=== PATIENT | female | born 1980 | race Hispanic/Latino ===

== ENCOUNTER 2018-02-01 08:47 | Emergency (ER) | payer MEDICARE ==
--- NOTE | 2018-02-01 10:21 | Emergency Department Report ---
ED Female [facility] [[email or web address]] - General Chief complaint: Abdominal Pain Stated complaint: ABD/CHEST PAIN Time Seen by Provider: 02/01/18 10:16 Source: patient Mode of arrival: Ambulatory Limitations: No Limitations - Related Data Home Medications Medication Instructions Recorded Confirmed Last Taken Albuterol Sulfate [Ventolin HFA] 2 puff IH Q4H PRN 11/11/13 11/11/13 Unknown Amitriptyline [Elavil] 50 mg PO QHS 11/11/13 11/11/13 Unknown Citalopram Hydrobromide [Celexa] 40 mg PO QDAY 11/11/13 11/11/13 Unknown Previous Rx's Medication Instructions Recorded Last Taken Type Albuterol Sulfate [Ventolin HFA] 2 puff IH Q4H PRN #1 hfa.aer.ad 11/11/13 Unknown Rx Azithromycin [Zithromax Z-KAYDEN] 250 mg PO DAILY #6 tablet 11/11/13 Unknown Rx Promethazine Dm [Phenergan DM 5 ml PO Q6H PRN #120 ml 11/11/13 Unknown Rx 6.25-15 mg/5 ml] predniSONE [Deltasone] 20 mg PO BID #10 tab 11/11/13 Unknown Rx HYDROcodone/APAP 5-325 [[place] 1 each PO Q6HR PRN #10 tablet 05/18/14 Unknown Rx 5/325] Ibuprofen [Motrin] 800 mg PO Q8HR PRN #20 tablet 07/31/16 Unknown Rx HYDROcodone/APAP 5-325 [[place]yler 1 each PO Q6HR PRN #10 tablet 11/11/16 Unknown Rx 5/325] Allergies Allergy/AdvReac Type Severity Reaction Status Date / Time Penicillins Allergy Hives Verified 11/11/13 09:53 ED Review of Systems ROS: Stated complaint: ABD/CHEST PAIN Other details as noted in HPI ED Past Medical Hx - Past Medical History Previous Medical History?: Yes Hx Psychiatric Treatment: Yes Additional medical history: hepatitis B. bronchitis - Surgical History Past Surgical History?: Yes Additional Surgical History: tubal ligation 2001 - Social History Smoking Status: Never Smoker Substance Use Type: None - Medications Home Medications: Home Medications Medication Instructions Recorded Confirmed Last Taken Type Albuterol Sulfate [Ventolin HFA] 2 puff IH Q4H PRN 11/11/13 11/11/13 Unknown History Albuterol Sulfate [Ventolin HFA] 2 puff IH Q4H PRN #1 hfa.aer.ad 11/11/13 Unknown Rx Amitriptyline [Elavil] 50 mg PO QHS 11/11/13 11/11/13 Unknown History Azithromycin [Zithromax Z-KAYDEN] 250 mg PO DAILY #6 tablet 11/11/13 Unknown Rx Citalopram Hydrobromide [Celexa] 40 mg PO QDAY 11/11/13 11/11/13 Unknown History Promethazine Dm [Phenergan DM 5 ml PO Q6H PRN #120 ml 11/11/13 Unknown Rx 6.25-15 mg/5 ml] predniSONE [Deltasone] 20 mg PO BID #10 tab 11/11/13 Unknown Rx HYDROcodone/APAP 5-325 [[place] 1 each PO Q6HR PRN #10 tablet 05/18/14 Unknown Rx 5/325] Ibuprofen [Motrin] 800 mg PO Q8HR PRN #20 tablet 07/31/16 Unknown Rx HYDROcodone/APAP 5-325 [Tyler 1 each PO Q6HR PRN #10 tablet 11/11/16 Unknown Rx 5/325] ED Physical Exam - General Limitations: No Limitations ED Course Vital Signs 02/01/18 09:04 Temperature 97.4 F L Pulse Rate 79 Respiratory 18 Rate Blood Pressure 112/76 O2 Sat by Pulse 100 Oximetry Critical care attestation.: If time is entered above; I have spent that time in minutes in the direct care of this critically ill patient, excluding procedure time. ED Disposition Condition: Stable Instructions: Abdominal Pain (ED) Referrals: PRIMARY CARE, [Primary Care Provider] - 3-5 Days
--- NOTE | 2018-02-01 10:22 | Emergency Department Report ---
ED Abdominal Pain HPI - General Chief Complaint: Abdominal Pain Stated Complaint: ABD/CHEST PAIN Time Seen by Provider: 02/01/18 10:16 Source: patient, family Mode of arrival: Ambulatory Limitations: No Limitations - History of Present Illness Initial Comments: Seen here reports pain to her mid upper abdomen that radiates to her chest. She describes pain as a burning pain in 6-10 comes and goes. She reports that she's been burping a lot and when asked if she has acidic feeling in her mouth that she burps she reports yes. Patient says that she's been seen when a heart and this isn't her heart is okay. She says she is having some nausea and she had diarrhea yesterday. She denies vomiting, urinary burning, vaginal bleeding and no discharge. Patient said that she's never been diagnosed with acid reflux. Pain is worse at night when lying down and after eating. The pain is radiating from her mid upper abdomen to her midsternal area. Patient has a history of mental health problem, bronchitis, hepatitis B and she's also had a tubal ligation. Denies any fever or chills. Denies any shortness of breath. She says she saw [facility] for the problem but they didn't tell her anything about it her needing to take any medication for acid reflux. The just over that she needs to see a lung specialist because she is exposed to secondhand smoke in for prolonged period of time with history of bronchitis. MD Complaint: abdominal pain (nausea with some diarrhea, burping) Onset/Timin -: week(s) Location: epigastric Radiation: chest (mid chest) Migration to: no migration Severity: moderate Severity scale (0 -10): 6 Quality: burning Consistency: intermittent Improves With: nothing Worsens With: eating, other Context: other (unknown) Associated Symptoms: nausea, diarrhea, other (burping with acidic taste in mouth ). denies: vomiting, fever, chills, constipation, dysuria, hematemesis, hematochezia, melena, hematuria, anorexia, syncope Treatments Prior to Arrival: other (none) - Related Data LMP Date: 01/02/18 Home Medications Medication Instructions Recorded Confirmed Last Taken Albuterol Sulfate [Ventolin HFA] 2 puff IH Q4H PRN 11/11/13 11/11/13 Unknown Amitriptyline [Elavil] 50 mg PO QHS 11/11/13 11/11/13 Unknown Citalopram Hydrobromide [Celexa] 40 mg PO QDAY 11/11/13 11/11/13 Unknown Previous Rx's Medication Instructions Recorded Last Taken Type Albuterol Sulfate [Ventolin HFA] 2 puff IH Q4H PRN #1 hfa.aer.ad 11/11/13 Unknown Rx Azithromycin [Zithromax Z-KAYDEN] 250 mg PO DAILY #6 tablet 11/11/13 Unknown Rx Promethazine Dm [Phenergan DM 5 ml PO Q6H PRN #120 ml 11/11/13 Unknown Rx 6.25-15 mg/5 ml] predniSONE [Deltasone] 20 mg PO BID #10 tab 11/11/13 Unknown Rx HYDROcodone/APAP 5-325 [[place] 1 each PO Q6HR PRN #10 tablet 05/18/14 Unknown Rx 5/325] Ibuprofen [Motrin] 800 mg PO Q8HR PRN #20 tablet 07/31/16 Unknown Rx HYDROcodone/APAP 5-325 [[place] 1 each PO Q6HR PRN #10 tablet 11/11/16 Unknown Rx 5/325] Omeprazole 20 mg PO BID 30 Days #60 tablet. 02/01/18 Unknown Rx Ondansetron [Zofran Odt] 4 mg PO Q8H PRN #12 tab.rapdis 02/01/18 Unknown Rx Allergies Allergy/AdvReac Type Severity Reaction Status Date / Time Penicillins Allergy Hives Verified 11/11/13 09:53 ED Review of Systems ROS: Stated complaint: ABD/CHEST PAIN Other details as noted in HPI Comment: All other systems reviewed and negative Constitutional: no symptoms reported. denies: chills, fever Eyes: denies: eye pain, eye discharge, vision change ENT: denies: ear pain, throat pain, congestion Respiratory: denies: cough, orthopnea, shortness of breath, SOB with exertion, SOB at rest, stridor, wheezing Cardiovascular: chest pain. denies: palpitations, dyspnea on exertion, edema, syncope, paroxysmal nocturnal dyspnea Endocrine: no symptoms reported Gastrointestinal: abdominal pain, nausea, diarrhea, other (burping and acidic taste in mouth). denies: vomiting, constipation, hematemesis, melena, hematochezia Genitourinary: denies: urgency, dysuria, frequency, hematuria, discharge, abnormal menses Musculoskeletal: denies: back pain, joint swelling, arthralgia Skin: denies: rash, lesions Neurological: denies: headache, weakness ED Past Medical Hx - Past Medical History Previous Medical History?: Yes Hx Psychiatric Treatment: Yes Additional medical history: hepatitis B. bronchitis - Surgical History Past Surgical History?: Yes Additional Surgical History: tubal ligation 2001 - Family History Family history: hypertension - Social History Smoking Status: Never Smoker (patient is exposed to secondhand smoke in her house.) Substance Use Type: None Other Social History: Patient single and lives with family - Medications Home Medications: Home Medications Medication Instructions Recorded Confirmed Last Taken Type Albuterol Sulfate [Ventolin HFA] 2 puff IH Q4H PRN 11/11/13 11/11/13 Unknown History Albuterol Sulfate [Ventolin HFA] 2 puff IH Q4H PRN #1 hfa.aer.ad 11/11/13 Unknown Rx Amitriptyline [Elavil] 50 mg PO QHS 11/11/13 11/11/13 Unknown History Azithromycin [Zithromax Z-KAYDEN] 250 mg PO DAILY #6 tablet 11/11/13 Unknown Rx Citalopram Hydrobromide [Celexa] 40 mg PO QDAY 11/11/13 11/11/13 Unknown History Promethazine Dm [Phenergan DM 5 ml PO Q6H PRN #120 ml 11/11/13 Unknown Rx 6.25-15 mg/5 ml] predniSONE [Deltasone] 20 mg PO BID #10 tab 11/11/13 Unknown Rx HYDROcodone/APAP 5-325 [[place] 1 each PO Q6HR PRN #10 tablet 05/18/14 Unknown Rx 5/325] Ibuprofen [Motrin] 800 mg PO Q8HR PRN #20 tablet 07/31/16 Unknown Rx HYDROcodone/APAP 5-325 [[place] 1 each PO Q6HR PRN #10 tablet 11/11/16 Unknown Rx 5/325] Omeprazole 20 mg PO BID 30 Days #60 tablet. 02/01/18 Unknown Rx Ondansetron [Zofran Odt] 4 mg PO Q8H PRN #12 tab.rapdis 02/01/18 Unknown Rx ED Physical Exam - General Limitations: No Limitations General appearance: alert, in no apparent distress - Head Head exam: Present: atraumatic, normocephalic, normal inspection - Eye Eye exam: Present: normal appearance, PERRL, EOMI Pupils: Present: normal accommodation - ENT ENT exam: Present: normal exam, normal orophraynx, mucous membranes moist, TM's normal bilaterally, normal external ear exam - Neck Neck exam: Present: normal inspection, full ROM, other (no C-spine tenderness). Absent: tenderness - Respiratory Respiratory exam: Present: normal lung sounds bilaterally. Absent: respiratory distress, wheezes, rales, rhonchi, stridor, chest wall tenderness, accessory muscle use, decreased breath sounds, prolonged expiratory - Cardiovascular Cardiovascular Exam: Present: regular rate, normal rhythm, normal heart sounds. Absent: systolic murmur, diastolic murmur - GI/Abdominal GI/Abdominal exam: Present: soft, normal bowel sounds. Absent: distended, tenderness, guarding, rebound, rigid, organomegaly, mass, bruit, pulsatile mass , hernia - Extremities Exam Extremities exam: Present: normal inspection, full ROM, normal capillary refill , other (no clubbing, cyanosis or edema. Positive pulses all extremities and no neurovascular compromise). Absent: tenderness, pedal edema, joint swelling, calf tenderness - Back Exam Back exam: Present: normal inspection, full ROM, other (ambulates without any difficulties). Absent: tenderness, CVA tenderness (R), CVA tenderness (L), muscle spasm, paraspinal tenderness, vertebral tenderness, rash noted - Neurological Exam Neurological exam: Present: alert, oriented X3, normal gait - Psychiatric Psychiatric exam: Present: normal affect, normal mood - Skin Skin exam: Present: warm, dry, intact, normal color. Absent: rash ED Course Vital Signs 02/01/18 09:04 Temperature 97.4 F L Pulse Rate 79 Respiratory 18 Rate Blood Pressure 112/76 O2 Sat by Pulse 100 Oximetry - Reevaluation(s) Reevaluation #1: 02/01/18 12:41 Patient received Maalox 15 mL by mouth and lidocaine 15 mL by mouth for dyspepsia. ED Medical Decision Making - Lab Data Result diagrams: 02/01/18 09:26 02/01/18 09:26 Lab Results 02/01/18 02/01/18 02/01/18 Range/Units 09:26 09:26 09:26 WBC 7.9 (4.5-11.0) K/mm3 RBC 4.55 (3.65-5.03) M/mm3 Hgb 13.0 (10.1-14.3) gm/dl Hct 38.9 (30.3-42.9) % MCV 85 (79-97) fl MCH 29 (28-32) pg MCHC 34 (30-34) % RDW 14.1 (13.2-15.2) % Plt Count 272 (140-440) K/mm3 Lymph % (Auto) 28.5 (13.4-35.0) % Hudson % (Auto) 7.8 H (0.0-7.3) % Eos % (Auto) 0.9 (0.0-4.3) % Baso % (Auto) 1.0 (0.0-1.8) % Lymph # 2.2 (1.2-5.4) K/mm3 Hudson # 0.6 (0.0-0.8) K/mm3 Eos # 0.1 (0.0-0.4) K/mm3 Baso # 0.1 (0.0-0.1) K/mm3 Seg Neutrophils % 61.8 (40.0-70.0) % Seg Neutrophils # 4.9 (1.8-7.7) K/mm3 Sodium 137 (137-145) mmol/L Potassium 4.2 (3.6-5.0) mmol/L Chloride 100.1 (98-107) mmol/L Carbon Dioxide 26 (22-30) mmol/L Anion Gap 15 mmol/L BUN 13 (7-17) mg/dL Creatinine 0.6 L (0.7-1.2) mg/dL Estimated GFR > 60 ml/min BUN/Creatinine Ratio 22 % Glucose 95 (65-100) mg/dL Calcium 9.1 (8.4-10.2) mg/dL Total Bilirubin 0.20 (0.1-1.2) mg/dL AST 16 (5-40) units/L ALT 18 (7-56) units/L Alkaline Phosphatase 90 (35-129) units/L Troponin T (0.00-0.029) ng/mL Total Protein 6.8 (6.3-8.2) g/dL Albumin 3.8 L (3.9-5) g/dL Albumin/Globulin Ratio 1.3 % HCG, Qual Negative (Negative) Urine Color (Yellow) Urine Turbidity (Clear) Urine pH (5.0-7.0) Ur Specific [place] (1.003-1.030) Urine Protein (Negative) mg/dL Urine Glucose (UA) (Negative) mg/dL Urine Ketones (Negative) mg/dL Urine Blood (Negative) Urine Nitrite (Negative) Urine Bilirubin (Negative) Urine Urobilinogen (<2.0) mg/dL Ur Leukocyte Esterase (Negative) Urine WBC (Auto) (0.0-6.0) /HPF Urine RBC (Auto) (0.0-6.0) /HPF U Epithel Cells (Auto) (0-13.0) /HPF Urine Bacteria (Auto) (Negative) /HPF Urine Mucus /HPF 02/01/18 02/01/18 Range/Units 09:26 10:16 WBC (4.5-11.0) K/mm3 RBC (3.65-5.03) M/mm3 Hgb (10.1-14.3) gm/dl Hct (30.3-42.9) % MCV (79-97) fl MCH (28-32) pg MCHC (30-34) % RDW (13.2-15.2) % Plt Count (140-440) K/mm3 Lymph % (Auto) (13.4-35.0) % [place] % (Auto) (0.0-7.3) % Eos % (Auto) (0.0-4.3) % Baso % (Auto) (0.0-1.8) % Lymph # (1.2-5.4) K/mm3 [place] # (0.0-0.8) K/mm3 Eos # (0.0-0.4) K/mm3 Baso # (0.0-0.1) K/mm3 Seg Neutrophils % (40.0-70.0) % Seg Neutrophils # (1.8-7.7) K/mm3 Sodium (137-145) mmol/L Potassium (3.6-5.0) mmol/L Chloride (98-107) mmol/L Carbon Dioxide (22-30) mmol/L Anion Gap mmol/L BUN (7-17) mg/dL Creatinine (0.7-1.2) mg/dL Estimated GFR ml/min BUN/Creatinine Ratio % Glucose (65-100) mg/dL Calcium (8.4-10.2) mg/dL Total Bilirubin (0.1-1.2) mg/dL AST (5-40) units/L ALT (7-56) units/L Alkaline Phosphatase (35-129) units/L Troponin T < 0.010 (0.00-0.029) ng/mL Total Protein (6.3-8.2) g/dL Albumin (3.9-5) g/dL Albumin/Globulin Ratio % HCG, Qual (Negative) Urine Color Yellow (Yellow) Urine Turbidity Clear (Clear) Urine pH 5.0 (5.0-7.0) Ur Specific [place] 1.017 (1.003-1.030) Urine Protein <15 mg/dl (Negative) mg/dL Urine Glucose (UA) Neg (Negative) mg/dL Urine Ketones Neg (Negative) mg/dL Urine Blood Sm (Negative) Urine Nitrite Neg (Negative) Urine Bilirubin Neg (Negative) Urine Urobilinogen < 2.0 (<2.0) mg/dL Ur Leukocyte Esterase Neg (Negative) Urine WBC (Auto) < 1.0 (0.0-6.0) /HPF Urine RBC (Auto) 1.0 (0.0-6.0) /HPF U Epithel Cells (Auto) 4.0 (0-13.0) /HPF Urine Bacteria (Auto) 1+ (Negative) /HPF Urine Mucus Few /HPF Urine culture sent and pending - EKG Data -: EKG Interpreted by Me (attending physician) EKG shows normal: sinus rhythm (72 beats per minutes) Rate: normal - EKG Data Interpretation: no acute changes, normal EKG - Radiology Data Radiology results: report reviewed Patient: ERIN ONOFRE MR#: [id number] : 1980 Acct:[id number] Age/Sex: 37 / F ADM Date: 02/01/18 Loc: ED Attending Dr: Ordering Physician: CHAD RAPP Date of Service: 02/01/18 Procedure(s): XR chest routine 2V Accession Number(s): [id number] cc: CHAD RAPP Fluoro Time In Minutes: CHEST 2 VIEWS INDICATION: Chest pain. COMPARISON: 11/11/2013. FINDINGS: PA and lateral chest radiographs demonstrate normal cardiomediastinal silhouette. Clear lungs. Intact bones. CONCLUSION: No acute disease in the chest. Thank you for the opportunity to participate in this patient's care. Transcribed By: RS Dictated By: HOLLIS HAMILTON MD Electronically Authenticated By: HOLLIS HAMILTON MD Signed Date/Time: 02/01/18 1230 DD/ 1229 TD/TT: 02/01/18 1230 - Medical Decision Making This is a 37-year-old female here reports pain to epigastric area and is radiating up into her chest. She is [facility] and she says she had a stress test and everything was okay. Today with nausea today and one episode of diarrhea yesterday. Patient with epigastric pain with increased burping and acid feeling in her mouth. CBC stable, troponin is negative, chemistry stable. Chest x-ray reveals no acute cardiopulmonary findings. Patient with nontender abdomen and her chest wall is nontender to palpate. urinalysis with 1+ bacteria and small amount of blood. Patient is asymptomatic therefore urine culture will be sent. I discussed results of labs and x-ray results the patient. I also discussed diagnosis and she receive Maalox 15 mL and lidocaine 15 mL in the emergency room which relieved her pain. Patient discharged home in stable condition with prescription for Prilosec, Zofran and to follow-up with [employer] hrms developer and her primary care physician. She does have a primary care physician so I will refer her to [facility] was restoration officer today. Her vital signs are stable and she is afebrile and patient was that she is feeling better. I Discussed this case with Dr. Sarahy Arroyo who agrees with treatment plan. Patient: ERIN ONOFRE MR#: [id number] : 1980 Acct:[id number] Age/Sex: 37 / F ADM Date: 02/01/18 Loc: ED Attending Dr: Ordering Physician: CHAD RAPP Date of Service: 02/01/18 Procedure(s): XR chest routine 2V Accession Number(s): [id number] cc: CHAD RAPP Fluoro Time In Minutes: CHEST 2 VIEWS INDICATION: Chest pain. COMPARISON: 11/11/2013. FINDINGS: PA and lateral chest radiographs demonstrate normal cardiomediastinal silhouette. Clear lungs. Intact bones. CONCLUSION: No acute disease in the chest. Thank you for the opportunity to participate in this patient's care. Transcribed By: RS Dictated By: HOLLIS HAMILTON MD Electronically Authenticated By: HOLLIS HAMILTON MD Signed Date/Time: 02/01/18 1230 DD/ 1229 TD/TT: 02/01/18 1230 - Differential Diagnosis ACS, atypical chest pain, gastroenteritis, acid reflux, UTI Critical care attestation.: If time is entered above; I have spent that time in minutes in the direct care of this critically ill patient, excluding procedure time. ED Disposition Clinical Impression: Dyspepsia, Nausea alone, Acute epigastric pain, Atypical chest pain Disposition: - TO HOME OR SELFCARE Is pt being admited?: No Does the pt Need Aspirin: No Condition: Stable Instructions: Abdominal Pain (ED), Chest Pain (ED), Gastroesophageal Reflux Disease (ED) Additional Instructions: Please follow up with [facility]ms developer with [facility]-. Call today to schedule an appointment for follow-up visit acid reflux She didn't follow up with your consulting application engineer. Follow-up the primary care physician call today to schedule an appointment to follow up on Sunday. Avoid eating spicy food, carbonated beverage and after eating, please set up for at least 30 minutes before laying down. Start Prilosec as prescribed Take Zofran for nausea as prescribed Prescriptions: Omeprazole 20 mg PO BID 30 Days #60 tablet. Ondansetron [Zofran Odt] 4 mg PO Q8H PRN #12 tab.rapdis PRN Reason: Nausea And Vomiting Referrals: PRIMARY CAREMD [Primary Care Provider] - 02/04/18 [facility] [Provider Group] - 3-5 Days [facility] [Provider Group] - 02/04/18 Forms: Work/School Release Form(ED)
[2018-02-01 10:36] LABS: Bacteria,Urine 1+ /HPF (Negative); Bilirubin,Urine NEG (Negative); Blood,Urine SM (Negative); Color,Urine Yellow (Yellow); Mucus,Urine FEW /HPF; Protein,Urine <15 mg/dL mg/dL (Negative); Urobilinogen,Urine < 2.0 mg/dL (<2.0); WBC,Urine < 1.0 /HPF (0.0-6.0)
[2018-02-01 10:46] LABS: Basophils # (Auto) 0.1 K/mm3 (0.0-0.1); Eosinophils # (Auto) 0.1 K/mm3 (0.0-0.4); Eosinophils % (Auto) 0.9 % (0.0-4.3); Hematocrit 38.9 % (30.3-42.9); Lymphocytes # (Auto) 2.2 K/mm3 (1.2-5.4); Lymphocytes % (Auto) 28.5 % (13.4-35.0); Mean Corpuscular HGB Conc 34 % (30-34); Mean Corpuscular Hemoglobin 29 pg (28-32); Mean Corpuscular Volume 85 fl (79-97); Monocytes # (Auto) 0.6 K/mm3 (0.0-0.8); Monocytes % (Auto) 7.8 % (0.0-7.3); Platelet Count 272 K/mm3 (140-440); Red Blood Count 4.55 M/mm3 (3.65-5.03); Red Cell Distribution Width 14.1 % (13.2-15.2)
[2018-02-01 11:03] LABS: Alanine Aminotransferase 18 units/L (7-56); Albumin 3.8 g/dL (3.9-5); BUN/Creatinine Ratio 22; Blood Urea Nitrogen 13 mg/dL (7-17); Calcium 9.1 mg/dL (8.4-10.2); Hemolysis Index 30
--- NOTE | 2018-02-01 12:36 | XRay Report ---
CHEST 2 VIEWS INDICATION: Chest pain. COMPARISON: 11/11/2013. FINDINGS: PA and lateral chest radiographs demonstrate normal cardiomediastinal silhouette. Clear lungs. Intact bones. CONCLUSION: No acute disease in the chest. Thank you for the opportunity to participate in this patient's care.
[2018-02-01] MEDS ORDERED: LIDOCAINE VISCOUS 2% PO ONE (12:40)
[2018-02-01] MEDS ORDERED: ALUM-MAG HYDROX-SIMETH 200-200-20MG/5ML PO ONE (12:40)
[2018-02-01 13:14] VITALS: BP 127/75
== END 2018-02-01 13:14 | disposition home or self-care (01) ==
LOC: ED 08:47
DX: R10.13 Epigastric pain (principal); R07.89 Other chest pain
CPT/HCPCS: 36415; 71046; 80053; 81001; 84484; 84703; 85025; 87086; 93005; 93010

== ENCOUNTER 2018-04-29 17:36 | Emergency (ER) | payer MEDICARE ==
[2018-04-29 18:11] VITALS: BP 135/87
[2018-04-29] MEDS ORDERED: MOTRIN PO ONE (20:01)
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
--- NOTE | 2018-04-29 21:52 | XRay Report ---
FINAL REPORT EXAM: XR SHOULDER 2+V RT HISTORY: right shoulder pain TECHNIQUE: 3 views of right shoulder. PRIORS: None. FINDINGS: No apparent fracture or dislocation. Joint spaces maintained. Soft tissues grossly unremarkable. IMPRESSION: 1. No acute osseous abnormality.
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
== END 2018-04-29 22:35 | disposition home or self-care (01) ==
LOC: ED 17:36
DX: S13.4XXA Sprain of ligaments of cervical spine, initial encounter (principal); S46.911A Strain of unspecified muscle, fascia and tendon at shoulder and upper arm level, right arm, initial encounter; S39.012A Strain of muscle, fascia and tendon of lower back, initial encounter; Z88.0 Allergy status to penicillin; V89.2XXA Person injured in unspecified motor-vehicle accident, traffic, initial encounter; Y93.89 Activity, other specified; Y92.89 Other specified places as the place of occurrence of the external cause; Y99.8 Other external cause status
CPT/HCPCS: 72040; 72100; 99283

== ENCOUNTER 2019-01-21 13:11 | Emergency (ER) | payer MEDICARE ==
--- NOTE | 2019-01-21 14:16 | Emergency Department Report ---
Chief Complaint: Extremity Injury, Lower Stated Complaint: BOTH LEG PAIN/SOAR Time Seen by Provider: 01/21/19 14:13 - HPI History of Present Illness: pt states that she has bilateral hankins pain that began yesterday morning she denies any fall, injury, or trauma hx of varicose veins has had increased swelling in the ankles and feet bilaterally MSE screening note: Focused history and physical exam performed. Due to findings the following was ordered: labs ED Disposition for MSE Condition: Stable
[2019-01-21 14:17] VITALS: BP 131/93
[2019-01-21 14:36] LABS: Hematocrit 41.4 % (30.3-42.9); Hemoglobin 14.2 gm/dl (10.1-14.3); Lymphocytes % (Auto) 36.3 % (13.4-35.0); Mean Corpuscular HGB Conc 34 % (30-34); Mean Corpuscular Volume 84 fl (79-97); Platelet Count 305 K/mm3 (140-440); Red Blood Count 4.94 M/mm3 (3.65-5.03); Red Cell Distribution Width 14.5 % (13.2-15.2)
[2019-01-21 14:37] LABS: Basophils # (Auto) 0.1 K/mm3 (0.0-0.1); Basophils % (Auto) 1.7 % (0.0-1.8); Eosinophils # (Auto) 0.1 K/mm3 (0.0-0.4); Eosinophils % (Auto) 0.9 % (0.0-4.3); Lymphocytes # (Auto) 2.7 K/mm3 (1.2-5.4); Monocytes # (Auto) 0.5 K/mm3 (0.0-0.8); Monocytes % (Auto) 6.8 % (0.0-7.3)
[2019-01-21 16:06] LABS: Alanine Aminotransferase 13 units/L (7-56); BUN/Creatinine Ratio 18; Blood Urea Nitrogen 14 mg/dL (7-17); Calcium 9.3 mg/dL (8.4-10.2); Hemolysis Index 12
[2019-01-21] MEDS ORDERED: HCTZ PO ONE (16:07)
--- NOTE | 2019-01-21 16:33 | Emergency Department Report ---
ED General Adult HPI - General Chief complaint: Extremity Injury, Lower Stated complaint: BOTH LEG PAIN/SOAR Time Seen by Provider: 01/21/19 14:13 Source: patient Mode of arrival: Ambulatory Limitations: No Limitations - History of Present Illness Initial comments: Patient is a 38-year-old female comes to the ER today complaining of leg swelling. Swelling is not sure on exam. She denies shortness of breath or chest pain. She states she's never had anything like this before. She is on atenolol for what she states as a rapid heart rate. She denies any medical history. She denies alcohol or cigarettes. She is on her menses currently. Patient is ambulatory. Vital signs are stable. She is non-tachycardic. Blood pressure is normal. Oxygen saturation is 100. Patient has no cardiac history of CHF. She has not traveled. She is on no hormones. -: Gradual, days(s) Location: lower extremity Improves with: none Worsens with: none Associated Symptoms: denies other symptoms Treatments Prior to Arrival: none - Related Data Home Medications Medication Instructions Recorded Confirmed Last Taken Albuterol Sulfate [Ventolin HFA] 2 puff IH Q4H PRN 11/11/13 11/11/13 Unknown Amitriptyline [Elavil] 50 mg PO QHS 11/11/13 11/11/13 Unknown Citalopram Hydrobromide [Celexa] 40 mg PO QDAY 11/11/13 11/11/13 Unknown Previous Rx's Medication Instructions Recorded Last Taken Type Albuterol Sulfate [Ventolin HFA] 2 puff IH Q4H PRN #1 hfa.aer.ad 11/11/13 Unknown Rx Azithromycin [Zithromax Z-KAYDEN] 250 mg PO DAILY #6 tablet 11/11/13 Unknown Rx Promethazine Dm (Nf) [Phenergan DM 5 ml PO Q6H PRN #120 ml 11/11/13 Unknown Rx 6.25-15 mg/5 ml] predniSONE [Deltasone] 20 mg PO BID #10 tab 11/11/13 Unknown Rx HYDROcodone/APAP 5-325 [[place] 1 each PO Q6HR PRN #10 tablet 05/18/14 Unknown Rx 5/325] Ibuprofen [Motrin] 800 mg PO Q8HR PRN #20 tablet 11/07/16 Unknown Rx HYDROcodone/APAP 5-325 [[place] 1 each PO Q6HR PRN #10 tablet 11/11/16 Unknown Rx 5/325] Omeprazole 20 mg PO BID 30 Days #60 tablet. 02/01/18 Unknown Rx Ondansetron [Zofran Odt] 4 mg PO Q8H PRN #12 tab.rapdis 02/01/18 Unknown Rx Cyclobenzaprine [Flexeril] 10 mg PO QHS PRN #10 tablet 04/29/18 Unknown Rx Ibuprofen [Motrin] 600 mg PO Q8H PRN #30 tablet 04/29/18 Unknown Rx Allergies Allergy/AdvReac Type Severity Reaction Status Date / Time Penicillins Allergy Hives Verified 11/11/13 09:53 ED Review of Systems ROS: Stated complaint: BOTH LEG PAIN/SOAR Other details as noted in HPI Comment: All other systems reviewed and negative ED Past Medical Hx - Past Medical History Hx Psychiatric Treatment: Yes Additional medical history: hepatitis B. bronchitis - Surgical History Past Surgical History?: Yes Additional Surgical History: tubal ligation 2001 - Family History Family history: no significant - Social History Smoking Status: Never Smoker Substance Use Type: None - Medications Home Medications: Home Medications Medication Instructions Recorded Confirmed Last Taken Type Albuterol Sulfate [Ventolin HFA] 2 puff IH Q4H PRN 11/11/13 11/11/13 Unknown History Albuterol Sulfate [Ventolin HFA] 2 puff IH Q4H PRN #1 hfa.aer.ad 11/11/13 Unknown Rx Amitriptyline [Elavil] 50 mg PO QHS 11/11/13 11/11/13 Unknown History Azithromycin [Zithromax Z-KAYDEN] 250 mg PO DAILY #6 tablet 11/11/13 Unknown Rx Citalopram Hydrobromide [Celexa] 40 mg PO QDAY 11/11/13 11/11/13 Unknown History Promethazine Dm (Nf) [Phenergan DM 5 ml PO Q6H PRN #120 ml 11/11/13 Unknown Rx 6.25-15 mg/5 ml] predniSONE [Deltasone] 20 mg PO BID #10 tab 11/11/13 Unknown Rx HYDROcodone/APAP 5-325 [[place] 1 each PO Q6HR PRN #10 tablet 05/18/14 Unknown Rx 5/325] Ibuprofen [Motrin] 800 mg PO Q8HR PRN #20 tablet 07/31/16 Unknown Rx HYDROcodone/APAP 5-325 [[place] 1 each PO Q6HR PRN #10 tablet 11/11/16 Unknown Rx 5/325] Omeprazole 20 mg PO BID 30 Days #60 tablet. 02/01/18 Unknown Rx Ondansetron [Zofran Odt] 4 mg PO Q8H PRN #12 tab.rapdis 02/01/18 Unknown Rx Cyclobenzaprine [Flexeril] 10 mg PO QHS PRN #10 tablet 04/29/18 Unknown Rx Ibuprofen [Motrin] 600 mg PO Q8H PRN #30 tablet 04/29/18 Unknown Rx ED Physical Exam - General Limitations: No Limitations General appearance: alert, in no apparent distress - Head Head exam: Present: normocephalic - Eye Eye exam: Present: normal appearance, PERRL, EOMI - ENT ENT exam: Present: mucous membranes moist - Neck Neck exam: Present: normal inspection, full ROM - Respiratory Respiratory exam: Present: normal lung sounds bilaterally - Cardiovascular Cardiovascular Exam: Present: regular rate - GI/Abdominal GI/Abdominal exam: Present: soft - Rectal Rectal exam: Present: deferred - Extremities Exam Extremities exam: Present: normal inspection, full ROM, normal capillary refill. Absent: pedal edema - Back Exam Back exam: Present: normal inspection, full ROM - Neurological Exam Neurological exam: Present: alert, oriented X3, CN II-XII intact - Psychiatric Psychiatric exam: Present: normal affect, normal mood - Skin Skin exam: Present: warm, dry, intact ED Course Vital Signs 01/21/19 14:13 Temperature 98.7 F Pulse Rate 88 Respiratory 18 Rate Blood Pressure 131/93 [Left] O2 Sat by Pulse 96 Oximetry ED Medical Decision Making - Lab Data Result diagrams: 01/21/19 14:22 01/21/19 14:22 - Medical Decision Making Vital Signs 01/21/19 14:13 Temperature 98.7 F Pulse Rate 88 Respiratory 18 Rate Blood Pressure 131/93 [Left] O2 Sat by Pulse 96 Oximetry Labs 01/21/19 01/21/19 14:22 14:22 WBC 7.5 RBC 4.94 Hgb 14.2 Hct 41.4 MCV 84 MCH 29 MCHC 34 RDW 14.5 Plt Count 305 Lymph % (Auto) 36.3 H Runnels % (Auto) 6.8 Eos % (Auto) 0.9 Baso % (Auto) 1.7 Lymph # 2.7 Runnels # 0.5 Eos # 0.1 Baso # 0.1 Seg Neutrophils % 54.3 Seg Neutrophils # 4.1 Sodium 136 L Potassium 3.8 Chloride 99.3 Carbon Dioxide 23 Anion Gap 18 BUN 14 Creatinine 0.8 Estimated GFR > 60 BUN/Creatinine Ratio 18 Glucose 116 H Calcium 9.3 Total Bilirubin 0.30 AST 14 ALT 13 Alkaline Phosphatase 82 Total Protein 7.0 Albumin 4.0 Albumin/Globulin Ratio 1.3 PEDAL EDEMA IS NOT APPRECIATED ON EXAM LOW SUSPICION FOR DVT NO DAVID NO TACHY NO HISTORY NO CP NO SOB NO HORMONE THERAPY ON MENSES CURRENTLY LOW SUSPICION FOR CHF NO SOB NO CP NON SMOKER NO FAM HX NO PREVIOUS HX PT EDUCATED ON EDEMA DISCUSSED HYDRATION AND DIET SHE WAS GIVEN HCTZ X 1 HERE FOR HER COMPLAINTS DC HOME WITH REFERRAL AND PCP FOLLOW UP ON DC VSS NO COMPLAINTS, AMBULATORY AND NONTOXIC Critical care attestation.: If time is entered above; I have spent that time in minutes in the direct care of this critically ill patient, excluding procedure time. ED Disposition Clinical Impression: Dependent edema Disposition: DC-01 TO HOME OR SELFCARE Is pt being admited?: No Does the pt Need Aspirin: No Condition: Stable Instructions: Leg Edema (ED) Additional Instructions: med as ordered today diet as tolerated activity as tolerated hydrate well with water REST ELEVATE LEGS WHEN ABLE LOW SALT DIET NO FRIED, CANNED OR PROCESSED FOODS FOLLOW UP PCP IF PERSISTS REFERRAL BELOW Referrals: ZAHRAA LAWS MD [Primary Care Provider] - 3-5 Days Time of Disposition: 16:31
== END 2019-01-21 16:50 | disposition home or self-care (01) ==
LOC: ED 13:11
DX: R60.9 Edema, unspecified (principal); Z98.51 Tubal ligation status; Z88.0 Allergy status to penicillin
CPT/HCPCS: 36415; 80053; 85025; 99283

== ENCOUNTER 2019-07-09 19:44 | Emergency (ER) | payer MEDICARE ==
--- NOTE | 2019-07-09 20:00 | Emergency Department Report ---
Blank Doc - Documentation Documentation: 39-year-old female that presents with URI symptoms. This initial assessment/diagnostic orders/clinical plan/treatment(s) is/are subject to change based on patient's health status, clinical progression and re- assessment by fellow clinical providers in the ED. Further treatment and workup at subsequent clinical providers discretion. Patient/guardians urged not to elope from the ED as their condition may be serious if not clinically assessed and managed. Initial orders include: 1- Patient sent to [facility] for further evaluation and treatment 2- CXR
--- NOTE | 2019-07-09 20:53 | XRay Report ---
CHEST PA AND LATERAL VIEWS INDICATION: MAIN: cough COUGH ANS SORE THROAT X 2 DAYS. COMPARISON: 02/01/2018. FINDINGS: Support devices: None. Heart: Within normal limits. Lungs/Pleura: No acute pulmonary or pleural findings. IMPRESSION: 1. No significant abnormality. Signer Name: Arjun Hodges MD Signed: 07/09/2019 8:48 PM Workstation Name: [id number]
--- NOTE | 2019-07-09 21:42 | Emergency Department Report ---
- General Chief Complaint: Upper Respiratory Infection Stated Complaint: COLD SX Time Seen by Provider: 07/09/19 19:59 Source: patient Mode of arrival: Ambulatory Limitations: No Limitations - History of Present Illness Initial Comments: Patient is a 39-year-old female presents emergency room with complaints of URI symptoms for 2 days. As associated dry cough, rhinorrhea, sneezing, watery eyes, chest discomfort after frequent coughing. She denies any fever, shortness of breath, leg swelling, any other symptoms. She has not taken anything at all for her symptoms. She denies any past medical history or allergies medications. - Related Data Home Medications Medication Instructions Recorded Confirmed Last Taken Albuterol Sulfate [Ventolin HFA] 2 puff IH Q4H PRN 11/11/13 11/11/13 Unknown Amitriptyline [Elavil] 50 mg PO QHS 11/11/13 11/11/13 Unknown Citalopram Hydrobromide [Celexa] 40 mg PO QDAY 11/11/13 11/11/13 Unknown Previous Rx's Medication Instructions Recorded Last Taken Type Albuterol Sulfate [Ventolin HFA] 2 puff IH Q4H PRN #1 hfa.aer.ad 11/11/13 Unknown Rx Azithromycin [Zithromax Z-KAYDEN] 250 mg PO DAILY #6 tablet 11/11/13 Unknown Rx Promethazine Dm (Nf) [Phenergan DM 5 ml PO Q6H PRN #120 ml 11/11/13 Unknown Rx 6.25-15 mg/5 ml] predniSONE [Deltasone] 20 mg PO BID #10 tab 11/11/13 Unknown Rx HYDROcodone/APAP 5-325 [[place] 1 each PO Q6HR PRN #10 tablet 05/18/14 Unknown Rx 5/325] Ibuprofen [Motrin] 800 mg PO Q8HR PRN #20 tablet 07/31/16 Unknown Rx HYDROcodone/APAP 5-325 [[place] 1 each PO Q6HR PRN #10 tablet 11/11/16 Unknown Rx 5/325] Omeprazole 20 mg PO BID 30 Days #60 tablet. 02/01/18 Unknown Rx Ondansetron [Zofran Odt] 4 mg PO Q8H PRN #12 tab.rapdis 02/01/18 Unknown Rx Cyclobenzaprine [Flexeril] 10 mg PO QHS PRN #10 tablet 04/29/18 Unknown Rx Ibuprofen [Motrin] 600 mg PO Q8H PRN #30 tablet 04/29/18 Unknown Rx Benzonatate [Tessalon Perles] 100 mg PO Q8HR PRN #14 capsule 07/09/19 Unknown Rx Cetirizine HCl [Zyrtec 10mg tab] 10 mg PO DAILY #14 tablet 07/09/19 Unknown Rx Fluticasone [Flonase] 1 spray NS QDAY #1 bottle 07/09/19 Unknown Rx Oseltamivir [Tamiflu] 75 mg PO BID 5 Days #10 cap 07/09/19 Unknown Rx Allergies Allergy/AdvReac Type Severity Reaction Status Date / Time Penicillins Allergy Hives Verified 11/11/13 09:53 ED Review of Systems ROS: Stated complaint: COLD SX Other details as noted in HPI Comment: All other systems reviewed and negative ED Past Medical Hx - Past Medical History Previous Medical History?: Yes Hx Psychiatric Treatment: Yes Additional medical history: hepatitis B. bronchitis - Surgical History Past Surgical History?: Yes Additional Surgical History: tubal ligation 2001 - Social History Smoking Status: Never Smoker Substance Use Type: None - Medications Home Medications: Home Medications Medication Instructions Recorded Confirmed Last Taken Type Albuterol Sulfate [Ventolin HFA] 2 puff IH Q4H PRN 11/11/13 11/11/13 Unknown History Albuterol Sulfate [Ventolin HFA] 2 puff IH Q4H PRN #1 hfa.aer.ad 11/11/13 Unknown Rx Amitriptyline [Elavil] 50 mg PO QHS 11/11/13 11/11/13 Unknown History Azithromycin [Zithromax Z-KAYDEN] 250 mg PO DAILY #6 tablet 11/11/13 Unknown Rx Citalopram Hydrobromide [Celexa] 40 mg PO QDAY 11/11/13 11/11/13 Unknown History Promethazine Dm (Nf) [Phenergan DM 5 ml PO Q6H PRN #120 ml 11/11/13 Unknown Rx 6.25-15 mg/5 ml] predniSONE [Deltasone] 20 mg PO BID #10 tab 11/11/13 Unknown Rx HYDROcodone/APAP 5-325 [[place] 1 each PO Q6HR PRN #10 tablet 08/25/14 Unknown Rx 5/325] Ibuprofen [Motrin] 800 mg PO Q8HR PRN #20 tablet 07/31/16 Unknown Rx HYDROcodone/APAP 5-325 [[place] 1 each PO Q6HR PRN #10 tablet 11/11/16 Unknown Rx 5/325] Omeprazole 20 mg PO BID 30 Days #60 tablet. 02/01/18 Unknown Rx Ondansetron [Zofran Odt] 4 mg PO Q8H PRN #12 tab.rapdis 02/01/18 Unknown Rx Cyclobenzaprine [Flexeril] 10 mg PO QHS PRN #10 tablet 04/29/18 Unknown Rx Ibuprofen [Motrin] 600 mg PO Q8H PRN #30 tablet 04/29/18 Unknown Rx Benzonatate [Tessalon Perles] 100 mg PO Q8HR PRN #14 capsule 07/09/19 Unknown Rx Cetirizine HCl [Zyrtec 10mg tab] 10 mg PO DAILY #14 tablet 07/09/19 Unknown Rx Fluticasone [Flonase] 1 spray NS QDAY #1 bottle 07/09/19 Unknown Rx Oseltamivir [Tamiflu] 75 mg PO BID 5 Days #10 cap 07/09/19 Unknown Rx ED Physical Exam - General Limitations: No Limitations General appearance: alert, in no apparent distress - Head Head exam: Present: atraumatic, normocephalic - Eye Eye exam: Present: normal appearance, PERRL, EOMI - ENT ENT exam: Present: normal orophraynx, mucous membranes moist, TM's normal bilaterally, normal external ear exam - Respiratory Respiratory exam: Present: normal lung sounds bilaterally. Absent: respiratory distress, wheezes, rales, rhonchi, stridor, chest wall tenderness, accessory muscle use, decreased breath sounds, prolonged expiratory - Cardiovascular Cardiovascular Exam: Present: regular rate, tachycardia, normal heart sounds. Absent: systolic murmur, diastolic murmur, rubs, gallop - Neurological Exam Neurological exam: Present: alert, oriented X3 - Psychiatric Psychiatric exam: Present: normal affect, normal mood - Skin Skin exam: Present: warm, dry, intact ED Course Vital Signs 07/09/19 07/09/19 19:45 19:59 Temperature 100.4 F H 99.2 F Pulse Rate 125 H 108 H Respiratory 18 16 Rate Blood Pressure 140/80 Blood Pressure 126/107 [Left] O2 Sat by Pulse 100 100 Oximetry ED Medical Decision Making - Radiology Data Radiology results: report reviewed CHEST PA AND LATERAL VIEWS INDICATION: MAIN: cough COUGH ANS SORE THROAT X 2 DAYS. COMPARISON: 02/01/2018. FINDINGS: Support devices: None. Heart: Within normal limits. Lungs/Pleura: No acute pulmonary or pleural findings. IMPRESSION: 1. No significant abnormality. Signer Name: Arjun Hodges MD Signed: 07/09/2019 8:48 PM Workstation Name: [id number] Transcribed By: CORIN Dictated By: Arjun Hodges MD Electronically Authenticated By: Arjun Hodges MD Signed Date/Time: 07/09/192047 - Medical Decision Making Patient is a 39-year-old female presents emergency room with complaints of URI symptoms for 2 days. As associated dry cough, rhinorrhea, sneezing, watery eyes, chest discomfort after frequent coughing. She denies any fever, shortness of breath, leg swelling, any other symptoms. She has not taken anything at all for her symptoms. She denies any past medical history or allergies medications. vitals with elevated HR and mild temperature, pt given ibuprofen. CXR: 1. No significant abnormality. lungs are clear bilaterally without w/r/r. Wells criteria score is very low risk for PE making PE very unlikely. pt has clinical signs/symptoms of flu and has had symptoms begin within 48 hours, will treat with tamiflu. pt given prescription for tamiflu, flonase, zyrtec, tessalon perles. advised pt to please take medication as prescribed. Please increase your water intake over the next several days. please follow-up with a primary care doctor in the next 2-3 days for reexamination. Return to the emergency room for any new or worsening symptoms. - Differential Diagnosis PNA, URI, viral syndrome, influenza, bronchitis, allergies Critical care attestation.: If time is entered above; I have spent that time in minutes in the direct care of this critically ill patient, excluding procedure time. ED Disposition Clinical Impression: Influenza Disposition: DC-01 TO HOME OR SELFCARE Is pt being admited?: No Does the pt Need Aspirin: No Condition: Stable Instructions: Influenza (ED) Additional Instructions: Please take medication as prescribed. Please increase your water intake over the next several days. please follow-up with a primary care doctor in the next 2-3 days for reexamination. Return to the emergency room for any new or worsening symptoms. Prescriptions: Fluticasone [Flonase] 1 spray NS QDAY #1 bottle Oseltamivir [Tamiflu] 75 mg PO BID 5 Days #10 cap Benzonatate [Tessalon Perles] 100 mg PO Q8HR PRN #14 capsule PRN Reason: cough Cetirizine HCl [Zyrtec 10mg tab] 10 mg PO DAILY #14 tablet Referrals: ZAHRAA ALWS MD [Primary Care Provider] - 2-3 Days Forms: Work/School Release Form(ED) Time of Disposition: 22:22 Print Language: KAZAKH
[2019-07-09] MEDS ORDERED: IBUPROFEN PO ONE (22:21)
[2019-07-09 22:41] VITALS: BP 126/107
== END 2019-07-09 22:47 | disposition home or self-care (01) ==
LOC: ED 19:44
DX: J11.1 Influenza due to unidentified influenza virus with other respiratory manifestations (principal); Z98.51 Tubal ligation status; Z98.890 Other specified postprocedural states; Z79.899 Other long term (current) drug therapy; Z88.0 Allergy status to penicillin
CPT/HCPCS: 71046

== ENCOUNTER 2019-09-12 20:25 | Emergency (ER) | payer MEDICARE ==
--- NOTE | 2019-09-13 02:23 | Emergency Department Report ---
- General Chief Complaint: Upper Respiratory Infection Stated Complaint: JASMIN/COLD CHILLS Time Seen by Provider: 09/13/19 02:05 Source: patient Mode of arrival: Ambulatory Limitations: No Limitations - History of Present Illness Initial Comments: Patient is a 39-year-old female that presents emergency room with complaints of the upper respiratory infections and fever times one week. Patient denied having a flu shot. MD Complaint: cough, rhinorrhea, nasal congestion -: Sudden Severity: severe Consistency: constant Improves With: NSAID, OTC cold medicine, rest Worsens With: activity Associated Symptoms: chills, rhinorrhea, nasal congestion, cough, shortness of breath. denies: fever, myalgias, diaphoresis, headache, stiff neck, chest pain, abdominal pain, nausea, vomiting, diarrhea, dysuria, rash, confusion, right sweats, weight loss, epistaxis, hoarseness, ear pain Treatments Prior to Arrival: Acetaminophen, Ibuprofen, "cold medicine" - Related Data Home Medications Medication Instructions Recorded Confirmed Last Taken Albuterol Sulfate [Ventolin HFA] 2 puff IH Q4H PRN 11/11/13 11/11/13 Unknown Amitriptyline [Elavil] 50 mg PO QHS 11/11/13 11/11/13 Unknown Citalopram Hydrobromide [Celexa] 40 mg PO QDAY 11/11/13 11/11/13 Unknown Previous Rx's Medication Instructions Recorded Last Taken Type Albuterol Sulfate [Ventolin HFA] 2 puff IH Q4H PRN #1 hfa.aer.ad 11/11/13 Unknown Rx Azithromycin [Zithromax Z-KAYDEN] 250 mg PO DAILY #6 tablet 11/11/13 Unknown Rx Promethazine Dm (Nf) [Phenergan DM 5 ml PO Q6H PRN #120 ml 11/11/13 Unknown Rx 6.25-15 mg/5 ml] predniSONE [Deltasone] 20 mg PO BID #10 tab 11/11/13 Unknown Rx HYDROcodone/APAP 5-325 [[place] 1 each PO Q6HR PRN #10 tablet 05/18/14 Unknown Rx 5/325] Ibuprofen [Motrin] 800 mg PO Q8HR PRN #20 tablet 07/31/16 Unknown Rx HYDROcodone/APAP 5-325 [[place] 1 each PO Q6HR PRN #10 tablet 11/11/16 Unknown Rx 5/325] Omeprazole 20 mg PO BID 30 Days #60 tablet.dr 02/01/18 Unknown Rx Ondansetron [Zofran Odt] 4 mg PO Q8H PRN #12 tab.rapdis 02/01/18 Unknown Rx Cyclobenzaprine [Flexeril] 10 mg PO QHS PRN #10 tablet 04/29/18 Unknown Rx Ibuprofen [Motrin] 600 mg PO Q8H PRN #30 tablet 04/29/18 Unknown Rx Benzonatate [Tessalon Perles] 100 mg PO Q8HR PRN #14 capsule 07/09/19 Unknown Rx Cetirizine HCl [Zyrtec 10mg tab] 10 mg PO DAILY #14 tablet 07/09/19 Unknown Rx Fluticasone [Flonase] 1 spray NS QDAY #1 bottle 07/09/19 Unknown Rx Oseltamivir [Tamiflu] 75 mg PO BID 5 Days #10 cap 07/09/19 Unknown Rx Doxycycline Hyclate [Doxycycline 100 mg PO Q12HR 10 Days #20 tab 09/13/19 Unknown Rx Hyclate TAB] methylPREDNISolone [Medrol 4MG 4 mg PO DAILY 6 Days #1 tab.ds.pk 09/13/19 Unknown Rx DOSEPAK (21 tabs)] Allergies Allergy/AdvReac Type Severity Reaction Status Date / Time Penicillins Allergy Hives Verified 11/11/13 09:53 ED Review of Systems ROS: Stated complaint: JASMIN/COLD CHILLS Other details as noted in HPI Constitutional: chills. denies: fever Eyes: denies: eye pain, eye discharge, vision change ENT: congestion. denies: ear pain, throat pain Respiratory: cough, shortness of breath, wheezing Cardiovascular: denies: chest pain, palpitations Endocrine: no symptoms reported Gastrointestinal: denies: abdominal pain, nausea, diarrhea Genitourinary: denies: urgency, dysuria, discharge Musculoskeletal: denies: back pain, joint swelling, arthralgia Skin: denies: rash, lesions Neurological: denies: headache, weakness, paresthesias Psychiatric: denies: anxiety, depression Hematological/Lymphatic: denies: easy bleeding, easy bruising ED Past Medical Hx - Past Medical History Previous Medical History?: Yes Hx Psychiatric Treatment: Yes (PTSD) Additional medical history: hepatitis B. bronchitis - Surgical History Past Surgical History?: Yes Additional Surgical History: tubal ligation 2001 - Family History Family history: no significant - Social History Smoking Status: Never Smoker Substance Use Type: None - Medications Home Medications: Home Medications Medication Instructions Recorded Confirmed Last Taken Type Albuterol Sulfate [Ventolin HFA] 2 puff IH Q4H PRN 11/11/13 11/11/13 Unknown History Albuterol Sulfate [Ventolin HFA] 2 puff IH Q4H PRN #1 hfa.aer.ad 11/11/13 Unknown Rx Amitriptyline [Elavil] 50 mg PO QHS 11/11/13 11/11/13 Unknown History Azithromycin [Zithromax Z-KAYDEN] 250 mg PO DAILY #6 tablet 11/11/13 Unknown Rx Citalopram Hydrobromide [Celexa] 40 mg PO QDAY 11/11/13 11/11/13 Unknown History Promethazine Dm (Nf) [Phenergan DM 5 ml PO Q6H PRN #120 ml 11/11/13 Unknown Rx 6.25-15 mg/5 ml] predniSONE [Deltasone] 20 mg PO BID #10 tab 11/11/13 Unknown Rx HYDROcodone/APAP 5-325 [[place] 1 each PO Q6HR PRN #10 tablet 05/18/14 Unknown Rx 5/325] Ibuprofen [Motrin] 800 mg PO Q8HR PRN #20 tablet 07/31/16 Unknown Rx HYDROcodone/APAP 5-325 [[place] 1 each PO Q6HR PRN #10 tablet 11/11/16 Unknown Rx 5/325] Omeprazole 20 mg PO BID 30 Days #60 tablet. 02/01/18 Unknown Rx Ondansetron [Zofran Odt] 4 mg PO Q8H PRN #12 tab.rapdis 02/01/18 Unknown Rx Cyclobenzaprine [Flexeril] 10 mg PO QHS PRN #10 tablet 04/29/18 Unknown Rx Ibuprofen [Motrin] 600 mg PO Q8H PRN #30 tablet 04/29/18 Unknown Rx Benzonatate [Tessalon Perles] 100 mg PO Q8HR PRN #14 capsule 07/09/19 Unknown Rx Cetirizine HCl [Zyrtec 10mg tab] 10 mg PO DAILY #14 tablet 07/09/19 Unknown Rx Fluticasone [Flonase] 1 spray NS QDAY #1 bottle 07/09/19 Unknown Rx Oseltamivir [Tamiflu] 75 mg PO BID 5 Days #10 cap 07/09/19 Unknown Rx Doxycycline Hyclate [Doxycycline 100 mg PO Q12HR 10 Days #20 tab 09/13/19 Unknown Rx Hyclate TAB] methylPREDNISolone [Medrol 4MG 4 mg PO DAILY 6 Days #1 tab.ds.pk 09/13/19 Unknown Rx DOSEPAK (21 tabs)] ED Physical Exam - General Limitations: No Limitations General appearance: alert, in no apparent distress - Head Head exam: Present: atraumatic, normocephalic - Eye Eye exam: Present: normal appearance - ENT ENT exam: Present: mucous membranes moist, TM's normal bilaterally, normal external ear exam - Expanded ENT Exam Expanded Throat exam: Positive: tonsillar erythema. Negative: tonsillomegaly, tonsillar exudate - Neck Neck exam: Present: normal inspection - Respiratory Respiratory exam: Present: normal lung sounds bilaterally. Absent: respiratory distress, wheezes, rales, rhonchi - Cardiovascular Cardiovascular Exam: Present: regular rate, normal rhythm. Absent: systolic murmur, diastolic murmur, rubs, gallop - GI/Abdominal GI/Abdominal exam: Present: soft, normal bowel sounds. Absent: distended, tenderness, guarding - Extremities Exam Extremities exam: Present: normal inspection - Back Exam Back exam: Present: normal inspection - Neurological Exam Neurological exam: Present: alert, oriented X3 - Psychiatric Psychiatric exam: Present: normal affect, normal mood - Skin Skin exam: Present: warm, dry, intact, normal color. Absent: rash ED Course Vital Signs 09/12/19 09/13/19 20:53 02:43 Temperature 99.0 F 98.2 F Pulse Rate 95 H 82 Respiratory 18 18 Rate Blood Pressure 115/84 106/85 O2 Sat by Pulse 97 98 Oximetry - Reevaluation(s) Reevaluation #1: 09/13/19 02:20 I discussed clinical findings patient. Patient findings are consistent with a URI. Patient has had the symptoms for approximately a week. Patient will require antibiotic therapy as well as Medrol Dosepak. I discussed discharge instructions with patient. Patient voiced understanding of discharge instructions. Vision agrees with plan of care. Patient will be discharged home. Patient stable for discharge. ED Medical Decision Making - Medical Decision Making Patient is a 39-year-old female up since emergency room with complaints of respiratory symptoms along with difficulty in breathing and chills. Patient's findings consistent with a prolonged URI. Patient will be given doxycycline and Medrol Dosepak. Patient stated discharge. Patient does not require further emergent investigation. - Differential Diagnosis bronchitis, URI, cough, chills, Critical care attestation.: If time is entered above; I have spent that time in minutes in the direct care of this critically ill patient, excluding procedure time. ED Disposition Clinical Impression: Bronchitis URI (upper respiratory infection) Qualifiers: URI type: unspecified URI Qualified Code(s): J06.9 - Acute upper respiratory infection, unspecified Disposition: TO HOME OR SELFCARE Is pt being admited?: No Does the pt Need Aspirin: No Condition: Stable Instructions: Upper Respiratory Infection (ED), Acute Bronchitis (ED) Additional Instructions: Patient to follow up with primary care in 2-3 days. Patient take meds as directed. Patient states Tylenol or ibuprofen when necessary for pain and fever. Patient to rest. Patient to increase water. Patient to return to ER if condition worsens, changes or new symptoms arise. Prescriptions: Doxycycline Hyclate [Doxycycline Hyclate TAB] 100 mg PO Q12HR 10 Days #20 tab methylPREDNISolone [Medrol 4MG DOSEPAK (21 tabs)] 4 mg PO DAILY 6 Days #1 tab.ds.pk Referrals: EVERETT RODRIGES MD [Primary Care Provider] - 2-3 Days Forms: Work/School Release Form(ED) Time of Disposition: 02:24
[2019-09-13 02:46] VITALS: BP 106/85
== END 2019-09-13 02:46 | disposition home or self-care (01) ==
LOC: ED 20:25
DX: J40 Bronchitis, not specified as acute or chronic (principal); F43.10 Post-traumatic stress disorder, unspecified
CPT/HCPCS: 99282

== ENCOUNTER 2020-02-21 22:40 | Emergency (ER) | payer MEDICARE ==
[2020-02-21 23:15] LABS: Bilirubin,Urine NEG (Negative); Blood,Urine NEG (Negative); Color,Urine Yellow (Yellow); Mucus,Urine FEW /HPF; Protein,Urine <15 mg/dL mg/dL (Negative); Urobilinogen,Urine < 2.0 mg/dL (<2.0)
[2020-02-21 23:16] LABS: HCG Qualitative,Urine Negative (Negative)
[2020-02-21] MEDS ORDERED: MORPHINE 4 MG/1 ML INJ IV ONE (23:27)
[2020-02-21] MEDS ORDERED: SODIUM CHLORIDE 0.9% 1000 ML 1,000 ML IV ONE (23:27)
[2020-02-21] MEDS ORDERED: ONDANSETRON 4 MG/2 ML INJ IV ONE (23:27)
--- NOTE | 2020-02-21 23:31 | Emergency Department Report ---
ED Abdominal Pain HPI - General Chief Complaint: Abdominal Pain Stated Complaint: ABD PAIN Time Seen by Provider: 02/21/20 23:00 Source: patient Mode of arrival: Ambulatory Limitations: No Limitations - History of Present Illness Initial Comments: 39-year-old female patient with history of PTSD and depression presents with complaints of right lower quadrant pain for the past week. She reports history of a tubal ligation. She rates her current pain as a 10/10 in severity and states it worsens with certain positions. Patient reports 1 epi sode of vomiting 3 days ago. She denies any diarrhea/hematochezia/melena, fever/chills/sweats, dysuria/hematuria/urinary frequency, vaginal discharge/bleeding, or hematemesis/coffee-ground emesis. She reports she was seen at an urgent care a few days ago and told to take Tylenol, however pain does not improve with this medication. Patient reports she was seen at an urgent care a couple of days ago and had a pelvic exam that was negative for any STDs. - Related Data Home Medications Medication Instructions Recorded Confirmed Last Taken Albuterol Sulfate [Ventolin HFA] 2 puff IH Q4H PRN 11/11/13 11/11/13 Unknown Amitriptyline [Elavil] 50 mg PO QHS 11/11/13 11/11/13 Unknown Citalopram Hydrobromide [Celexa] 40 mg PO QDAY 11/11/13 11/11/13 Unknown Previous Rx's Medication Instructions Recorded Last Taken Type Albuterol Sulfate [Ventolin HFA] 2 puff IH Q4H PRN #1 hfa.aer.ad 11/11/13 Unknown Rx Azithromycin [Zithromax Z-KAYDEN] 250 mg PO DAILY #6 tablet 11/11/13 Unknown Rx Promethazine Dm (Nf) [Phenergan DM 5 ml PO Q6H PRN #120 ml 11/11/13 Unknown Rx 6.25-15 mg/5 ml] predniSONE [Deltasone] 20 mg PO BID #10 tab 11/11/13 Unknown Rx HYDROcodone/APAP 5-325 [[place] 1 each PO Q6HR PRN #10 tablet 05/18/14 Unknown Rx 5/325] Ibuprofen [Motrin] 800 mg PO Q8HR PRN #20 tablet 07/31/16 Unknown Rx HYDROcodone/APAP 5-325 [[place] 1 each PO Q6HR PRN #10 tablet 11/11/16 Unknown Rx 5/325] Omeprazole 20 mg PO BID 30 Days #60 tablet. 02/01/18 Unknown Rx Ondansetron [Zofran Odt] 4 mg PO Q8H PRN #12 tab.rapdis 02/01/18 Unknown Rx Cyclobenzaprine [Flexeril] 10 mg PO QHS PRN #10 tablet 04/29/18 Unknown Rx Ibuprofen [Motrin] 600 mg PO Q8H PRN #30 tablet 04/29/18 Unknown Rx Benzonatate [Tessalon Perles] 100 mg PO Q8HR PRN #14 capsule 07/09/19 Unknown Rx Cetirizine HCl [Zyrtec 10mg tab] 10 mg PO DAILY #14 tablet 07/09/19 Unknown Rx Fluticasone [Flonase] 1 spray NS QDAY #1 bottle 07/09/19 Unknown Rx Oseltamivir [Tamiflu] 75 mg PO BID 5 Days #10 cap 07/09/19 Unknown Rx Doxycycline Hyclate [Doxycycline 100 mg PO Q12HR 10 Days #20 tab 09/13/19 Unknown Rx Hyclate TAB] methylPREDNISolone [Medrol 4MG 4 mg PO DAILY 6 Days #1 tab.ds.pk 09/13/19 Unknown Rx DOSEPAK (21 tabs)] Acetaminophen/Codeine [Tylenol 1 tab PO Q8H PRN #8 tab 02/22/20 Unknown Rx /Codeine # 3 tab] Ibuprofen [Motrin 800 MG tab] 800 mg PO Q8HR PRN #21 tablet 02/22/20 Unknown Rx Ondansetron [Zofran Odt] 4 mg PO Q8HR PRN #15 tab.rapdis 02/22/20 Unknown Rx Allergies Allergy/AdvReac Type Severity Reaction Status Date / Time Penicillins Allergy Hives Verified 11/11/13 09:53 ED Review of Systems ROS: Stated complaint: ABD PAIN Other details as noted in HPI Constitutional: denies: chills, fever Respiratory: denies: cough, shortness of breath Cardiovascular: denies: chest pain Gastrointestinal: abdominal pain, nausea, vomiting. denies: diarrhea, constipation, hematemesis, melena, hematochezia Genitourinary: denies: urgency, dysuria, frequency, hematuria, discharge, abnormal menses, dyspareunia Neurological: denies: headache Hematological/Lymphatic: denies: easy bleeding, swollen glands ED Past Medical Hx - Past Medical History Previous Medical History?: Yes Hx Psychiatric Treatment: Yes (PTSD, Anxiety, Depression) Additional medical history: hepatitis B. bronchitis - Surgical History Past Surgical History?: Yes Additional Surgical History: tubal ligation 2001 - Social History Smoking Status: Never Smoker Substance Use Type: None - Medications Home Medications: Home Medications Medication Instructions Recorded Confirmed Last Taken Type Albuterol Sulfate [Ventolin HFA] 2 puff IH Q4H PRN 11/11/13 11/11/13 Unknown History Albuterol Sulfate [Ventolin HFA] 2 puff IH Q4H PRN #1 hfa.aer.ad 11/11/13 Unknown Rx Amitriptyline [Elavil] 50 mg PO QHS 11/11/13 11/11/13 Unknown History Azithromycin [Zithromax Z-KAYDEN] 250 mg PO DAILY #6 tablet 11/11/13 Unknown Rx Citalopram Hydrobromide [Celexa] 40 mg PO QDAY 11/11/13 11/11/13 Unknown History Promethazine Dm (Nf) [Phenergan DM 5 ml PO Q6H PRN #120 ml 11/11/13 Unknown Rx 6.25-15 mg/5 ml] predniSONE [Deltasone] 20 mg PO BID #10 tab 11/11/13 Unknown Rx HYDROcodone/APAP 5-325 [[place] 1 each PO Q6HR PRN #10 tablet 05/18/14 Unknown Rx 5/325] Ibuprofen [Motrin] 800 mg PO Q8HR PRN #20 tablet 07/31/16 Unknown Rx HYDROcodone/APAP 5-325 [[place] 1 each PO Q6HR PRN #10 tablet 11/11/16 Unknown Rx 5/325] Omeprazole 20 mg PO BID 30 Days #60 tablet. 02/01/18 Unknown Rx Ondansetron [Zofran Odt] 4 mg PO Q8H PRN #12 tab.rapdis 02/01/18 Unknown Rx Cyclobenzaprine [Flexeril] 10 mg PO QHS PRN #10 tablet 04/29/18 Unknown Rx Ibuprofen [Motrin] 600 mg PO Q8H PRN #30 tablet 04/29/18 Unknown Rx Benzonatate [Tessalon Perles] 100 mg PO Q8HR PRN #14 capsule 07/09/19 Unknown Rx Cetirizine HCl [Zyrtec 10mg tab] 10 mg PO DAILY #14 tablet 07/09/19 Unknown Rx Fluticasone [Flonase] 1 spray NS QDAY #1 bottle 07/09/19 Unknown Rx Oseltamivir [Tamiflu] 75 mg PO BID 5 Days #10 cap 07/09/19 Unknown Rx Doxycycline Hyclate [Doxycycline 100 mg PO Q12HR 10 Days #20 tab 09/13/19 Unknown Rx Hyclate TAB] methylPREDNISolone [Medrol 4MG 4 mg PO DAILY 6 Days #1 tab.ds.pk 09/13/19 Unknown Rx DOSEPAK (21 tabs)] Acetaminophen/Codeine [Tylenol 1 tab PO Q8H PRN #8 tab 02/22/20 Unknown Rx /Codeine # 3 tab] Ibuprofen [Motrin 800 MG tab] 800 mg PO Q8HR PRN #21 tablet 02/22/20 Unknown Rx Ondansetron [Zofran Odt] 4 mg PO Q8HR PRN #15 tab.rapdis 02/22/20 Unknown Rx ED Physical Exam - General Limitations: No Limitations General appearance: alert, in no apparent distress - Head Head exam: Present: atraumatic, normocephalic - Eye Eye exam: Present: normal appearance. Absent: scleral icterus - ENT ENT exam: Present: mucous membranes moist - Neck Neck exam: Present: normal inspection - Respiratory Respiratory exam: Present: normal lung sounds bilaterally. Absent: respiratory distress - Cardiovascular Cardiovascular Exam: Present: regular rate, normal rhythm. Absent: systolic murmur, diastolic murmur, rubs, gallop - GI/Abdominal GI/Abdominal exam: Present: soft, tenderness, guarding, normal bowel sounds. Absent: distended, rigid - Expanded GI/Abdominal Exam Expanded GI/Abdominal exam: Present: tenderness at [place]. Absent: Moeller's sign - External exam: Present: other (Patient declines exam) - Extremities Exam Extremities exam: Present: normal inspection, full ROM - Back Exam Back exam: Present: normal inspection. Absent: CVA tenderness (R), CVA tenderness (L) - Neurological Exam Neurological exam: Present: alert, oriented X3 - Psychiatric Psychiatric exam: Present: normal affect, normal mood - Skin Skin exam: Present: warm, dry, intact, normal color. Absent: rash, diaphoretic, erythema, ecchymosis ED Course Vital Signs 02/21/20 02/22/20 22:46 02:19 Temperature 98.9 F Pulse Rate 107 H 80 Respiratory 18 Rate Blood Pressure 128/77 Blood Pressure 119/63 [Left] O2 Sat by Pulse 95 Oximetry ED Medical Decision Making - Lab Data Result diagrams: 02/21/20 23:13 02/21/20 23:13 Lab Results 02/21/20 02/21/20 02/21/20 Range/Units 23:13 23:13 23:13 WBC 10.3 (4.5-11.0) K/mm3 RBC 4.72 (3.65-5.03) M/mm3 Hgb 13.4 (10.1-14.3) gm/dl Hct 40.2 (30.3-42.9) % MCV 85 (79-97) fl MCH 28 (28-32) pg MCHC 33 (30-34) % RDW 13.8 (13.2-15.2) % Plt Count 358 (140-440) K/mm3 Lymph % (Auto) 40.2 H (13.4-35.0) % [place] % (Auto) 7.3 (0.0-7.3) % Eos % (Auto) 0.7 (0.0-4.3) % Baso % (Auto) 0.8 (0.0-1.8) % Lymph # 4.1 (1.2-5.4) K/mm3 [place] # 0.7 (0.0-0.8) K/mm3 Eos # 0.1 (0.0-0.4) K/mm3 Baso # 0.1 (0.0-0.1) K/mm3 Seg Neutrophils % 51.0 (40.0-70.0) % Seg Neutrophils # 5.3 (1.8-7.7) K/mm3 Sodium 142 (137-145) mmol/L Potassium 3.7 (3.6-5.0) mmol/L Chloride 101.5 (98-107) mmol/L Carbon Dioxide 26 (22-30) mmol/L Anion Gap 18 mmol/L BUN 13 (7-17) mg/dL Creatinine 0.8 (0.7-1.2) mg/dL Estimated GFR > 60 ml/min BUN/Creatinine Ratio 16 % Glucose 95 (65-100) mg/dL Calcium 9.3 (8.4-10.2) mg/dL Total Bilirubin < 0.20 (0.1-1.2) mg/dL Direct Bilirubin < 0.2 (0-0.2) mg/dL Indirect Bilirubin 0.0 mg/dL AST 16 (5-40) units/L ALT 18 (7-56) units/L Alkaline Phosphatase 95 (35-129) units/L Total Protein 7.0 (6.3-8.2) g/dL Albumin 4.2 (3.9-5) g/dL Albumin/Globulin Ratio 1.5 % Lipase 33 (13-60) units/L Urine Color (Yellow) Urine Turbidity (Clear) Urine pH (5.0-7.0) Ur Specific [place] (1.003-1.030) Urine Protein (Negative) mg/dL Urine Glucose (UA) (Negative) mg/dL Urine Ketones (Negative) mg/dL Urine Blood (Negative) Urine Nitrite (Negative) Urine Bilirubin (Negative) Urine Urobilinogen (<2.0) mg/dL Ur Leukocyte Esterase (Negative) Urine WBC (Auto) (0.0-6.0) /HPF Urine RBC (Auto) (0.0-6.0) /HPF U Epithel Cells (Auto) (0-13.0) /HPF Urine Mucus /HPF Urine HCG, Qual (Negative) 02/20/20 Range/Units Unknown WBC (4.5-11.0) K/mm3 RBC (3.65-5.03) M/mm3 Hgb (10.1-14.3) gm/dl Hct (30.3-42.9) % MCV (79-97) fl MCH (28-32) pg MCHC (30-34) % RDW (13.2-15.2) % Plt Count (140-440) K/mm3 Lymph % (Auto) (13.4-35.0) % [place] % (Auto) (0.0-7.3) % Eos % (Auto) (0.0-4.3) % Baso % (Auto) (0.0-1.8) % Lymph # (1.2-5.4) K/mm3 [place] # (0.0-0.8) K/mm3 Eos # (0.0-0.4) K/mm3 Baso # (0.0-0.1) K/mm3 Seg Neutrophils % (40.0-70.0) % Seg Neutrophils # (1.8-7.7) K/mm3 Sodium (137-145) mmol/L Potassium (3.6-5.0) mmol/L Chloride (98-107) mmol/L Carbon Dioxide (22-30) mmol/L Anion Gap mmol/L BUN (7-17) mg/dL Creatinine (0.7-1.2) mg/dL Estimated GFR ml/min BUN/Creatinine Ratio % Glucose (65-100) mg/dL Calcium (8.4-10.2) mg/dL Total Bilirubin (0.1-1.2) mg/dL Direct Bilirubin (0-0.2) mg/dL Indirect Bilirubin mg/dL AST (5-40) units/L ALT (7-56) units/L Alkaline Phosphatase (35-129) units/L Total Protein (6.3-8.2) g/dL Albumin (3.9-5) g/dL Albumin/Globulin Ratio % Lipase (13-60) units/L Urine Color Yellow (Yellow) Urine Turbidity Clear (Clear) Urine pH 5.0 (5.0-7.0) Ur Specific [place] 1.019 (1.003-1.030) Urine Protein <15 mg/dl (Negative) mg/dL Urine Glucose (UA) Neg (Negative) mg/dL Urine Ketones Neg (Negative) mg/dL Urine Blood Neg (Negative) Urine Nitrite Neg (Negative) Urine Bilirubin Neg (Negative) Urine Urobilinogen < 2.0 (<2.0) mg/dL Ur Leukocyte Esterase Neg (Negative) Urine WBC (Auto) 1.0 (0.0-6.0) /HPF Urine RBC (Auto) 2.0 (0.0-6.0) /HPF U Epithel Cells (Auto) 2.0 (0-13.0) /HPF Urine Mucus Few /HPF Urine HCG, Qual Negative (Negative) - Radiology Data Radiology results: report reviewed CT ABDOMEN AND PELVIS WITH IV CONTRAST INDICATION: MAIN: Right lower quadrant abdominal pain pain 100cc omn i300. COMPARISON: None available. TECHNIQUE: Axial CT images were obtained through the abdomen and pelvis after 100 mL IV contrast. All CT scans at this location are performed using CT dose reduction for ALARA by means of automated exposure control. FINDINGS -- ABDOMEN: Lung Bases: No acute abnormality. Liver: Normal. Gallbladder: Normal. Bile Ducts: Normal. Pancreas: Normal. Spleen: Normal. Adrenals: Normal. Right Kidney and Proximal Ureter: Normal. Left Kidney and Proximal Ureter: Normal. Stomach and Bowel: Normal. Lymph Nodes: No significant adenopathy. Aorta: No significant abnormality. IVC: Normal. Additional Findings: None. FINDINGS -- PELVIS: Urinary Bladder and Distal Ureters: Normal. Reproductive Organs: Small 1 cm hemorrhagic cyst arising from the right ovary. Appendix: Normal. Bowel: No acute abnormality. Free Fluid: None. Lymph Nodes: No significant adenopathy. Additional Findings: None. Skeletal System: No acute abnormality. IMPRESSION: Small 1 cm peripherally enhancing cyst from the right ovary could represent hemorrhagic cyst. No evidence of appendicitis. Transvaginal pelvic ultrasound Doppler INDICATION: Right pelvic pain FINDINGS: Uterus measures 9 x 4 x 3 cm with endometrial stripe thickness of 11 mm. Both ovaries appear normal. Small endometrial fluid present. IMPRESSION: Normal Doppler flow to both ovaries. Minimal fluid noted within the endometrium. - Medical Decision Making Patient here with complaints of right lower abdominal pain for the past week. She reports one episode of vomiting 3 days ago. Patient also reports going to an urgent care a couple of days ago and having a pelvic exam that was negative for any STIs. No abnormalities noted on CBC. CMP, lipase, and UA were without acute findings. CT of the abdomen showed 1 cm hemorrhagic right ovarian cyst. Ultrasound was negative for ovarian torsion. Patient's pain is well controlled with Toradol. She is well-appearing, vitals are normal, and she is stable for discharge home. I recommend patient follows up with [facility] concerning her ovarian cyst. Strict return precautions were discussed in great detail with patient who verbalizes understanding. Critical care attestation.: If time is entered above; I have spent that time in minutes in the direct care of this critically ill patient, excluding procedure time. ED Disposition Clinical Impression: Hemorrhagic cyst of right ovary Disposition: DC- TO HOME OR SELFCARE Is pt being admited?: No Condition: Stable Instructions: Ovarian Cyst (ED), Abdominal Pain (ED) Prescriptions: Ibuprofen [Motrin 800 MG tab] 800 mg PO Q8HR PRN #21 tablet PRN Reason: Pain, Moderate (4-6) Acetaminophen/Codeine [Tylenol /Codeine # 3 tab] 1 tab PO Q8H PRN #8 tab PRN Reason: Pain , Severe (7-10) Ondansetron [Zofran Odt] 4 mg PO Q8HR PRN #15 tab.rapdis PRN Reason: Nausea Referrals: EMIL VEGA MD [Staff Physician] - 3-5 Days PRIMARY CARE, [Primary Care Provider] - 2-3 Days Forms: Work/School Release Form(ED)
[2020-02-21 23:52] LABS: Basophils # (Auto) 0.1 K/mm3 (0.0-0.1); Basophils % (Auto) 0.8 % (0.0-1.8); Eosinophils # (Auto) 0.1 K/mm3 (0.0-0.4); Eosinophils % (Auto) 0.7 % (0.0-4.3); Hematocrit 40.2 % (30.3-42.9); Hemoglobin 13.4 gm/dl (10.1-14.3); Lymphocytes # (Auto) 4.1 K/mm3 (1.2-5.4); Lymphocytes % (Auto) 40.2 % (13.4-35.0); Mean Corpuscular HGB Conc 33 % (30-34); Mean Corpuscular Volume 85 fl (79-97); Monocytes # (Auto) 0.7 K/mm3 (0.0-0.8); Monocytes % (Auto) 7.3 % (0.0-7.3); Platelet Count 358 K/mm3 (140-440); Red Blood Count 4.72 M/mm3 (3.65-5.03); Red Cell Distribution Width 13.8 % (13.2-15.2)
[2020-02-22 00:02] LABS: BUN/Creatinine Ratio 16; Blood Urea Nitrogen 13 mg/dL (7-17); Calcium 9.3 mg/dL (8.4-10.2); Hemolysis Index 30
[2020-02-22 00:06] LABS: Alanine Aminotransferase 18 units/L (7-56); Albumin 4.2 g/dL (3.9-5)
[2020-02-22 00:11] LABS: Bilirubin,Direct < 0.2 mg/dL (0-0.2)
--- NOTE | 2020-02-22 01:14 | Cat Scan Report ---
CT ABDOMEN AND PELVIS WITH IV CONTRAST INDICATION: MAIN: Right lower quadrant abdominal pain pain 100cc omn i300. COMPARISON: None available. TECHNIQUE: Axial CT images were obtained through the abdomen and pelvis after 100 mL IV contrast. All CT scans a t this location are performed using CT dose reduction for [place]ARA by means of automated exposure contro l. FINDINGS -- ABDOMEN: Lung Bases: No acute abnormality. Liver: Normal. Gallbladder: Normal. Bile Ducts: Normal. Pancreas: Normal. Spleen: Normal. Adrenals: Normal. Right Kidney and Proximal Ureter: Normal. Left Kidney and Proximal Ureter: Normal. Stomach and Bowel: Normal. Lymph Nodes: No significant adenopathy. Aorta: No significant abnormality. IVC: Normal. Additional Findings: None. FINDINGS -- PELVIS: Urinary Bladder and Distal Ureters: Normal. Reproductive Organs: Small 1 cm hemorrhagic cyst arising from the right ovary. Appendix: Normal. Bowel: No acute abnormality. Free Fluid: None. Lymph Nodes: No significant adenopathy. Additional Findings: None. Skeletal System: No acute abnormality. IMPRESSION: Small 1 cm peripherally enhancing cyst from the right ovary could represent hemorrhagic cyst. No evid ence of appendicitis. Signer Name: Jaylon Fu MD Signed: 02/22/2020 1:09 AM Workstation Name: [email or web address]
[2020-02-22] MEDS ORDERED: KETOROLAC 30 MG/1 ML INJ IV ONE (02:14)
--- NOTE | 2020-02-22 04:01 | Ultrasound Report ---
Transvaginal pelvic ultrasound Doppler INDICATION: Right pelvic pain FINDINGS: Uterus measures 9 x 4 x 3 cm with endometrial stripe thickness of 11 mm. Both ovaries appea r normal. Small endometrial fluid present. IMPRESSION: Normal Doppler flow to both ovaries. Minimal fluid noted within the endometrium. Signer Name: Jaylon Fu MD Signed: 02/22/2020 3:56 AM Workstation Name: [id number]
[2020-02-22 04:47] VITALS: BP 122/76
== END 2020-02-22 04:46 | disposition home or self-care (01) ==
LOC: ED 22:40
DX: N83.201 Unspecified ovarian cyst, right side (principal); R11.10 Vomiting, unspecified; F41.9 Anxiety disorder, unspecified; F32.9 Major depressive disorder, single episode, unspecified; Z88.0 Allergy status to penicillin; Z79.899 Other long term (current) drug therapy; Z98.51 Tubal ligation status
CPT/HCPCS: 36415; 74177; 76830; 80048; 80076; 81001; 81025; 83690; 85025; 96361; 96374; 96375; 99284; J1885; J2270; J2405; J7030; Q9967

== ENCOUNTER 2020-04-03 21:00 | Emergency (ER) | payer MEDICARE ==
[2020-04-03 21:36] LABS: Basophils # (Auto) 0.1 K/mm3 (0.0-0.1); Basophils % (Auto) 1.2 % (0.0-1.8); Eosinophils # (Auto) 0.1 K/mm3 (0.0-0.4); Eosinophils % (Auto) 0.8 % (0.0-4.3); Hematocrit 38.5 % (30.3-42.9); Hemoglobin 13.7 gm/dl (10.1-14.3); Lymphocytes # (Auto) 3.2 K/mm3 (1.2-5.4); Lymphocytes % (Auto) 35.9 % (13.4-35.0); Mean Corpuscular HGB Conc 36 % (30-34); Mean Corpuscular Volume 85 fl (79-97); Monocytes # (Auto) 0.6 K/mm3 (0.0-0.8); Monocytes % (Auto) 6.7 % (0.0-7.3); Platelet Count 324 K/mm3 (140-440); Red Blood Count 4.55 M/mm3 (3.65-5.03); Red Cell Distribution Width 14.1 % (13.2-15.2)
[2020-04-03 21:36] LABS: Bilirubin,Urine NEG (Negative); Blood,Urine LG (Negative); Color,Urine Yellow (Yellow); Mucus,Urine FEW /HPF; Protein,Urine <15 mg/dL mg/dL (Negative); Urobilinogen,Urine < 2.0 mg/dL (<2.0); WBC,Urine < 1.0 /HPF (0.0-6.0)
[2020-04-04 00:37] LABS: Alanine Aminotransferase 12 units/L (7-56); Albumin 4.3 g/dL (3.9-5); BUN/Creatinine Ratio 23; Blood Urea Nitrogen 16 mg/dL (7-17); Calcium 9.2 mg/dL (8.4-10.2); Hemolysis Index 24
[2020-04-04] MEDS ORDERED: ONDANSETRON 4 MG ODT TAB PO ONE (00:59)
[2020-04-04] MEDS ORDERED: ACETAMINOPHEN 500 MG TAB PO ONE (00:59)
[2020-04-04] MEDS ORDERED: IBUPROFEN 600 MG TAB PO ONE (00:59)
--- NOTE | 2020-04-04 01:04 | Emergency Department Report ---
ED Abdominal Pain HPI - General Chief Complaint: Vaginal Bleeding Stated Complaint: BLOOD CLOTS MIGRAINE OVARIAN CYST Source: patient Mode of arrival: Ambulatory Limitations: No Limitations - History of Present Illness Initial Comments: Patient is a A0 39-year-old white female with a history of PTSD, anxiety and depression who presents to the ED with complaint of acute exacerbation of her chronic recurrent right lower quadrant pain that radiates to the suprapubic area for the last 2 days. Patient also states that she started her menstrual cycle 4 days ago and has been bleeding heavily but noticed large blood clots 2 hours prior to arrival in the ED. Patient states that she has previously extensively worked up on 2 occasions in this ED for the recurrent right lower quadrant abdominal pain and has been diagnosed with ovarian cyst the last of which was 2 cm in size on the right ovary. Patient states that the pain has been persistent and that she also continues to have nausea and vomiting with each episode of pain. Patient states that she followed up with her [facility] physician about 2 months ago but states that she was advised that there was nothing else they could do for her ovarian cyst pain. Patient denies dizziness, syncope, diarrhea, fever, chills, cough, chest pain, dysuria, urinary frequency and urgency, vaginal discharge or low back pain. MD Complaint: abdominal pain (RLQ pain), other (Dysmenorrhea with blood clots) -: Gradual, month(s) (3) Location: RLQ, suprapubic Radiation: RLQ, suprapubic Migration to: no migration Severity: moderate Severity scale (0 -10): 6 Quality: cramping, aching, sharp Consistency: constant Improves With: nothing Worsens With: nothing Associated Symptoms: denies other symptoms, nausea, vomiting. denies: diarrhea, fever, chills, constipation, dysuria, hematemesis, melena, hematuria, anorexia, syncope, other - Related Data Home Medications Medication Instructions Recorded Confirmed Last Taken Albuterol Sulfate [Ventolin HFA] 2 puff IH Q4H PRN 11/11/13 11/11/13 Unknown Amitriptyline [Elavil] 50 mg PO QHS 11/11/13 11/11/13 Unknown Citalopram Hydrobromide [Celexa] 40 mg PO QDAY 11/11/13 11/11/13 Unknown Previous Rx's Medication Instructions Recorded Last Taken Type Albuterol Sulfate [Ventolin HFA] 2 puff IH Q4H PRN #1 hfa.aer.ad 11/11/13 Unknown Rx Azithromycin [Zithromax Z-KAYDEN] 250 mg PO DAILY #6 tablet 11/11/13 Unknown Rx Promethazine Dm (Nf) [Phenergan DM 5 ml PO Q6H PRN #120 ml 11/11/13 Unknown Rx 6.25-15 mg/5 ml] predniSONE [Deltasone] 20 mg PO BID #10 tab 11/11/13 Unknown Rx HYDROcodone/APAP 5-325 [[place] 1 each PO Q6HR PRN #10 tablet 05/18/14 Unknown Rx 5/325] Ibuprofen [Motrin] 800 mg PO Q8HR PRN #20 tablet 07/31/16 Unknown Rx HYDROcodone/APAP 5-325 [[place] 1 each PO Q6HR PRN #10 tablet 11/11/16 Unknown Rx 5/325] Omeprazole 20 mg PO BID 30 Days #60 tablet. 02/01/18 Unknown Rx Ondansetron [Zofran Odt] 4 mg PO Q8H PRN #12 tab.rapdis 02/01/18 Unknown Rx Cyclobenzaprine [Flexeril] 10 mg PO QHS PRN #10 tablet 04/29/18 Unknown Rx Ibuprofen [Motrin] 600 mg PO Q8H PRN #30 tablet 04/29/18 Unknown Rx Benzonatate [Tessalon Perles] 100 mg PO Q8HR PRN #14 capsule 07/09/19 Unknown Rx Cetirizine HCl [Zyrtec 10mg tab] 10 mg PO DAILY #14 tablet 07/09/19 Unknown Rx Fluticasone [Flonase] 1 spray NS QDAY #1 bottle 07/09/19 Unknown Rx Oseltamivir [Tamiflu] 75 mg PO BID 5 Days #10 cap 07/09/19 Unknown Rx Doxycycline Hyclate [Doxycycline 100 mg PO Q12HR 10 Days #20 tab 09/13/19 Unknown Rx Hyclate TAB] methylPREDNISolone [Medrol 4MG 4 mg PO DAILY 6 Days #1 tab.ds.pk 09/13/19 Unknown Rx DOSEPAK (21 tabs)] Acetaminophen/Codeine [Tylenol 1 tab PO Q8H PRN #8 tab 05/31/20 Unknown Rx /Codeine # 3 tab] Ibuprofen [Motrin 800 MG tab] 800 mg PO Q8HR PRN #21 tablet 02/22/20 Unknown Rx Ondansetron [Zofran Odt] 4 mg PO Q8HR PRN #15 tab.rapdis 02/22/20 Unknown Rx Ondansetron [Zofran Odt] 4 mg PO Q8HR PRN #12 tab.rapdis 03/17/20 Unknown Rx Ibuprofen [Motrin] 600 mg PO Q8H PRN #30 tablet 04/04/20 Unknown Rx Ondansetron [Zofran Odt] 4 mg PO Q6HR PRN #20 tab.rapdis 04/04/20 Unknown Rx Allergies Allergy/AdvReac Type Severity Reaction Status Date / Time Penicillins Allergy Hives Verified 03/17/20 17:32 ED Review of Systems ROS: Stated complaint: BLOOD CLOTS MIGRAINE OVARIAN CYST Other details as noted in HPI Constitutional: denies: chills, fever Eyes: denies: eye pain, eye discharge, vision change ENT: denies: ear pain, throat pain Respiratory: denies: cough, shortness of breath, wheezing Cardiovascular: denies: chest pain, palpitations Endocrine: no symptoms reported Gastrointestinal: abdominal pain (Right lower quadrant pain that radiates to the suprapubic area), nausea, vomiting. denies: diarrhea Genitourinary: abnormal menses (Vaginal bleeding due to menstrual cycle). denies: urgency, dysuria, discharge Musculoskeletal: denies: back pain, joint swelling, arthralgia Skin: denies: rash, lesions Neurological: denies: headache, weakness, paresthesias Psychiatric: denies: anxiety, depression Hematological/Lymphatic: denies: easy bleeding, easy bruising ED Past Medical Hx - Past Medical History Previous Medical History?: Yes Hx Psychiatric Treatment: Yes (PTSD, Anxiety, Depression) Additional medical history: hepatitis B, OVARIAN CYSTS. bronchitis - Surgical History Past Surgical History?: Yes Additional Surgical History: tubal ligation 2001, TONSILECTOMY - Social History Smoking Status: Never Smoker Substance Use Type: None - Medications Home Medications: Home Medications Medication Instructions Recorded Confirmed Last Taken Type Albuterol Sulfate [Ventolin HFA] 2 puff IH Q4H PRN 11/11/13 11/11/13 Unknown History Albuterol Sulfate [Ventolin HFA] 2 puff IH Q4H PRN #1 hfa.aer.ad 11/11/13 Unknown Rx Amitriptyline [Elavil] 50 mg PO QHS 11/11/13 11/11/13 Unknown History Azithromycin [Zithromax Z-KAYDEN] 250 mg PO DAILY #6 tablet 11/11/13 Unknown Rx Citalopram Hydrobromide [Celexa] 40 mg PO QDAY 11/11/13 11/11/13 Unknown History Promethazine Dm (Nf) [Phenergan DM 5 ml PO Q6H PRN #120 ml 11/11/13 Unknown Rx 6.25-15 mg/5 ml] predniSONE [Deltasone] 20 mg PO BID #10 tab 11/11/13 Unknown Rx HYDROcodone/APAP 5-325 [[place] 1 each PO Q6HR PRN #10 tablet 05/18/14 Unknown Rx 5/325] Ibuprofen [Motrin] 800 mg PO Q8HR PRN #20 tablet 07/31/16 Unknown Rx HYDROcodone/APAP 5-325 [[place] 1 each PO Q6HR PRN #10 tablet 11/11/16 Unknown Rx 5/325] Omeprazole 20 mg PO BID 30 Days #60 tablet. 02/01/18 Unknown Rx Ondansetron [Zofran Odt] 4 mg PO Q8H PRN #12 tab.rapdis 02/01/18 Unknown Rx Cyclobenzaprine [Flexeril] 10 mg PO QHS PRN #10 tablet 04/29/18 Unknown Rx Ibuprofen [Motrin] 600 mg PO Q8H PRN #30 tablet 04/29/18 Unknown Rx Benzonatate [Tessalon Perles] 100 mg PO Q8HR PRN #14 capsule 07/09/19 Unknown Rx Cetirizine HCl [Zyrtec 10mg tab] 10 mg PO DAILY #14 tablet 07/09/19 Unknown Rx Fluticasone [Flonase] 1 spray NS QDAY #1 bottle 07/09/19 Unknown Rx Oseltamivir [Tamiflu] 75 mg PO BID 5 Days #10 cap 07/09/19 Unknown Rx Doxycycline Hyclate [Doxycycline 100 mg PO Q12HR 10 Days #20 tab 09/13/19 Unknown Rx Hyclate TAB] methylPREDNISolone [Medrol 4MG 4 mg PO DAILY 6 Days #1 tab.ds.pk 09/13/19 Unknown Rx DOSEPAK (21 tabs)] Acetaminophen/Codeine [Tylenol 1 tab PO Q8H PRN #8 tab 02/22/20 Unknown Rx /Codeine # 3 tab] Ibuprofen [Motrin 800 MG tab] 800 mg PO Q8HR PRN #21 tablet 02/22/20 Unknown Rx Ondansetron [Zofran Odt] 4 mg PO Q8HR PRN #15 tab.rapdis 02/22/20 Unknown Rx Ondansetron [Zofran Odt] 4 mg PO Q8HR PRN #12 tab.rapdis 03/17/20 Unknown Rx Ibuprofen [Motrin] 600 mg PO Q8H PRN #30 tablet 04/04/20 Unknown Rx Ondansetron [Zofran Odt] 4 mg PO Q6HR PRN #20 tab.rapdis 04/04/20 Unknown Rx ED Physical Exam - General Limitations: No Limitations General appearance: alert, in no apparent distress - Head Head exam: Present: atraumatic, normocephalic, normal inspection - Eye Eye exam: Present: normal appearance, PERRL, EOMI Pupils: Present: normal accommodation - ENT ENT exam: Present: normal exam, normal orophraynx, mucous membranes moist, TM's normal bilaterally, normal external ear exam - Neck Neck exam: Present: normal inspection, full ROM - Respiratory Respiratory exam: Present: normal lung sounds bilaterally. Absent: respiratory distress, wheezes, rales, rhonchi, chest wall tenderness, accessory muscle use, decreased breath sounds, prolonged expiratory - Cardiovascular Cardiovascular Exam: Present: regular rate, normal rhythm, normal heart sounds. Absent: systolic murmur, diastolic murmur, rubs, gallop - GI/Abdominal GI/Abdominal exam: Present: soft, tenderness (Palpable moderate right lower quadrant and suprapubic tenderness), normal bowel sounds. Absent: guarding, rebound, hyperactive bowel sounds, hypoactive bowel sounds - Bi-manual exam: Present: other (Pelvic exam deferred patient preference) - Extremities Exam Extremities exam: Present: normal inspection, full ROM, normal capillary refill - Back Exam Back exam: Present: normal inspection, full ROM. Absent: tenderness, CVA tenderness (R), muscle spasm, paraspinal tenderness, vertebral tenderness - Neurological Exam Neurological exam: Present: alert, oriented X3, CN II-XII intact, normal gait, reflexes normal - Psychiatric Psychiatric exam: Present: normal affect, normal mood - Skin Skin exam: Present: warm, dry, intact, normal color. Absent: rash ED Course Vital Signs 04/03/20 21:04 Temperature 98.8 F Pulse Rate 98 H Respiratory 16 Rate Blood Pressure 128/79 O2 Sat by Pulse 97 Oximetry ED Medical Decision Making - Lab Data Result diagrams: 04/03/20 21:24 04/04/20 00:08 - Radiology Data Radiology results: report reviewed, image reviewed Findings [facility] [address] [place] [address] Cat Scan Report Signed Patient: ERIN ONOFRE MR#: [id number] : 1980 Acct:[id number] Age/Sex: 39 / F ADM Date: 04/03/20 Loc: ED Attending Dr: Ordering Physician: CHAD CALLAHAN Date of Service: 04/04/20 Procedure(s): CT abdomen pelvis wo con Accession Number(s): [id number] cc: CHAD CALLAHAN CT ABDOMEN AND PELVIS WITHOUT CONTRAST INDICATION: RLQ pain. TECHNIQUE: Axial CT images were obtained through the abdomen and pelvis without IV contrast. All CT scans at this location are performed using CT dose reduction for ALARA by means of automated exposure control. COMPARISON: CT abdomen pelvis 03/17/2020 FINDINGS: LOWER CHEST: No significant abnormality. LIVER: No significant abnormality. GALLBLADDER: No significant abnormality. BILE DUCTS: No significant abnormality. PANCREAS: No significant abnormality. SPLEEN: No significant abnormality. ADRENALS: No significant abnormality. RIGHT KIDNEY and URETER: No significant abnormality. LEFT KIDNEY and URETER: No significant abnormality. STOMACH and SMALL BOWEL: No significant abnormality. COLON: No significant abnormality. APPENDIX: No significant abnormality. PERITONEUM: No free fluid. No free air. No fluid collection. LYMPH NODES: No significant adenopathy. AORTA and ARTERIES: No significant abnormality. IVC and VEINS: No significant abnormality. URINARY BLADDER: No significant abnormality. REPRODUCTIVE ORGANS: 1.5 cm right ovarian follicular cyst. Bilateral tubal ligation clips again noted. Uterus and left ovary appear within normal limits. ADDITIONAL FINDINGS: None. SKELETAL SYSTEM: No significant abnormality. IMPRESSION: 1. 1.5 cm right ovarian cyst. No free fluid. 2. No CT evidence for appendicitis or other acute inflammatory process 3. No urinary tract calculi or hydronephrosis Signer Name: Larry Hernandez MD Signed: 04/04/2020 3:29 AM Workstation Name: [id number] Transcribed By: TL Dictated By: Larry Hernandez MD Electronically Authenticated By: Larry Hernandez MD Signed Date/Time: 04/04/20328 DD/ 6 TD/TT: Findings [facility] [address] [place] [address] Ultrasound Report Signed Patient: ERIN ONOFRE MR#: [id number] : 1980 Acct:[id number] Age/Sex: 39 / F ADM Date: 04/03/20 Loc: ED Attending Dr: Ordering Physician: CHAD CALLAHAN Date of Service: 04/04/20 Procedure(s): US pelvic complete Accession Number(s): [id number] cc: CHAD CALLAHAN ULTRASOUND PELVIS INDICATION: RLQ Abdominal pain: ovarian cyst vs Appendicitis. TECHNIQUE: Transabdominal. Duplex Color Doppler used: Yes. COMPARISON: None available FINDINGS: Uterus: Present. Size: 8.2 x 4.1 x 5.1 cm. Endometrial complex: Normal measuring 5 mm. Mass lesions: None. Additional findings: None. Right Ovary -- Normal. Blood flow: Normal. Cyst or mass: None. Left Ovary-- Normal. Blood flow: Normal. Cyst or mass: None. Urinary Bladder: Normal. Free Fluid: None. Additional Findings: None. IMPRESSION: 1. No acute sonographic abnormality of the pelvis. Signer Name: Larry Hernandez MD Signed: 04/04/2020 2:19 AM Workstation Name: [id number] Transcribed By: TL Dictated By: Larry Hernandez MD Electronically Authenticated By: Larry Hernandez MD Signed Date/Time: 04/04/20218 DD/ 7 TD/TT: - Medical Decision Making This is a A0 39-year-old white female with a history of PTSD, anxiety and depression who presents to the ED with complaint of acute exacerbation of her chronic recurrent right lower quadrant pain that radiates to the suprapubic area for the last 2 days. Patient also states that she started her menstrual cycle 4 days ago and has been bleeding heavily but noticed large blood clots 2 hours prior to arrival in the ED. Patient states that she has previously extensively worked up on 2 occasions in this ED for the recurrent right lower quadrant abdominal pain and has been diagnosed with ovarian cyst the last of which was 2 cm in size on the right ovary. Patient states that the pain has been persistent and that she also continues to have nausea and vomiting with each episode of pain. Patient states that she followed up with her [facility] physician about 2 mo nths ago but states that she was advised that there was nothing else they could do for her ovarian cyst pain. In the ED, patient is alert and oriented x3 and is not in distress with normal vital signs. Lab test results were reviewed and are all nonactionable. Urinalysis showed large amount of blood consistent with patient's current menstrual cycle. Upon review of the patient's record in the hospital, patient has been treated for the same complaint consistently for the last 2 months, and each visit showed that the patient had right ovarian cyst. The last visit which was on March 17, [address] scan showed a 2 cm right ovarian cyst and the patient was discharged home on pain medication. Patient stated that the pain that she is currently experiencing similar to the previous pain that she had and that the previous pain never resolved with even the medication that was given to her. Her main concern was the fact that she had blood clots with her menstrual cycle 2 hours prior to arrival in the ED. Lab test results were reviewed and are all nonactionable. During this visit, the pelvic ultrasound showed no acute acute abnormalities. Abdomen pelvis CT scan without contrast showed no acute appendicitis but a 1.5 cm right ovarian cyst with no free fluid. Patient was therefore treated for pain in the ED and discharged home on pain medications based on the previous imaging report which was 3 weeks ago. Patient was advised to follow-up with [facility] physician in 2 to 3 days for reevaluation. Patient was also advised to return to the ED immediately if symptoms get worse. - Differential Diagnosis Appendicitis; Ovarian cyst; ; UTI Critical care attestation.: If time is entered above; I have spent that time in minutes in the direct care of this critically ill patient, excluding procedure time. ED Disposition Clinical Impression: Acute abdominal pain in right lower quadrant, Right ovarian cyst Disposition: - TO HOME OR SELFCARE Is pt being admited?: No Does the pt Need Aspirin: No Condition: Stable Instructions: Abdominal Pain (ED), Ovarian Cyst (ED) Additional Instructions: The abdomen pelvis CT scan showed a 1.5 cm right ovarian cyst. Therefore take medications as needed for pain, drink plenty fluids and follow-up with your [facility] physician in 5 to 7 days for reevaluation. Return to the ED immediately if symptoms get worse. Prescriptions: Ibuprofen [Motrin] 600 mg PO Q8H PRN #30 tablet PRN Reason: Pain Ondansetron [Zofran Odt] 4 mg PO Q6HR PRN #20 tab.rapdis PRN Reason: Nausea Referrals: LONDON NUNN MD [Staff Physician] - 3-5 Days Time of Disposition: 04:13 Print Language: VIET[place]ESE
--- NOTE | 2020-04-04 02:23 | Ultrasound Report ---
ULTRASOUND PELVIS INDICATION: RLQ Abdominal pain: ovarian cyst vs Appendicitis. TECHNIQUE: Transabdominal. Duplex Color Doppler used: Yes. COMPARISON: None available FINDINGS: Uterus: Present. Size: 8.2 x 4.1 x 5.1 cm. Endometrial complex: Normal measuring 5 mm. Mass lesions: None. Additional findings: None. Right Ovary -- Normal. Blood flow: Normal. Cyst or mass: None. Left Ovary-- Normal. Blood flow: Normal. Cyst or mass: None. Urinary Bladder: Normal. Free Fluid: None. Additional Findings: None. IMPRESSION: 1. No acute sonographic abnormality of the pelvis. Signer Name: Larry Hernandez MD Signed: 04/04/2020 2:19 AM Workstation Name: [id number]
--- NOTE | 2020-04-04 03:33 | Cat Scan Report ---
CT ABDOMEN AND PELVIS WITHOUT CONTRAST INDICATION: RLQ pain. TECHNIQUE: Axial CT images were obtained through the abdomen and pelvis without IV contrast. All CT scans at [facility] location are performed using CT dose reduction for ALARA by means of automated exposure control. COMPARISON: CT abdomen pelvis 03/17/2020 FINDINGS: LOWER CHEST: No significant abnormality. LIVER: No significant abnormality. GALLBLADDER: No significant abnormality. BILE DUCTS: No significant abnormality. PANCREAS: No significant abnormality. SPLEEN: No significant abnormality. ADRENALS: No significant abnormality. RIGHT KIDNEY and URETER: No significant abnormality. LEFT KIDNEY and URETER: No significant abnormality. STOMACH and SMALL BOWEL: No significant abnormality. COLON: No significant abnormality. APPENDIX: No significant abnormality. PERITONEUM: No free fluid. No free air. No fluid collection. LYMPH NODES: No significant adenopathy. AORTA and ARTERIES: No significant abnormality. IVC and VEINS: No significant abnormality. URINARY BLADDER: No significant abnormality. REPRODUCTIVE ORGANS: 1.5 cm right ovarian follicular cyst. Bilateral tubal ligation clips again noted . Uterus and left ovary appear within normal limits. ADDITIONAL FINDINGS: None. SKELETAL SYSTEM: No significant abnormality. IMPRESSION: 1. 1.5 cm right ovarian cyst. No free fluid. 2. No CT evidence for appendicitis or other acute inflammatory process 3. No urinary tract calculi or hydronephrosis Signer Name: Larry Hernandez MD Signed: 04/04/2020 3:29 AM Workstation Name: [email or web address]
[2020-04-04 05:24] VITALS: BP 122/82
== END 2020-04-04 05:05 | disposition home or self-care (01) ==
LOC: ED 21:00
DX: N83.291 Other ovarian cyst, right side (principal); F43.10 Post-traumatic stress disorder, unspecified; F41.9 Anxiety disorder, unspecified; F32.89 Other specified depressive episodes; Z98.51 Tubal ligation status; Z90.89 Acquired absence of other organs; Z79.899 Other long term (current) drug therapy; Z88.0 Allergy status to penicillin
CPT/HCPCS: 36415; 74176; 76856; 80053; 81001; 84703; 85025; Q0162

== ENCOUNTER 2021-04-14 19:12 | Emergency (ER) | payer MEDICARE ==
[2021-04-14 19:54] VITALS: BP 141/88
--- NOTE | 2021-04-14 20:33 | Event Note ---
ED Screening Note Date of service: 04/14/21 Time: 20:32 ED Screening Note: 40-year-old female patient presents to the emergency department with complaints of nausea and vomiting for 3 days. Patient has had approximately 3 episodes of nonbloody emesis within the last 24 hours. Last bowel movement was today. No black or bloody stools. No history of prior abdominal surgeries. General: Awake, appropriately interactive, no acute distress. Neck: Supple. Full range of motion intact. Cardiovascular: Normal peripheral perfusion. Pulmonary: No respiratory distress. Patient is speaking normally without use of accessory muscles. Skin: No apparent rashes or lesions. Neurological: No facial asymmetry. Speech is clear. Follows commands. Patient is alert and oriented. Musculoskeletal: Moves all four extremities spontaneously with normal range of motion. Psych: Cooperative. Appropriate mood and affect. I have greeted and performed a focused rapid initial assessment of this patient. A comprehensive ED assessment and evaluation of the patient, analysis of all test results, and completion of the medical decision-making process will be conducted by additional ED providers. This initial assessment/diagnostic orders/clinical plan/treatment(s) is/are subject to change based on patients health status, clinical progression and re-assessment. Further treatment and workup at subsequent clinical provider's discretion. Patient/guardian urged not to elope from the ED as their condition may be serious if not clinically assessed and managed.
[2021-04-14 21:02] LABS: Basophils # (Auto) 0.1 K/mm3 (0.0-0.1); Eosinophils # (Auto) 0.1 K/mm3 (0.0-0.4); Eosinophils % (Auto) 0.8 % (0.0-4.3); Hematocrit 40.3 % (30.3-42.9); Hemoglobin 13.2 gm/dl (10.1-14.3); Lymphocytes # (Auto) 3.2 K/mm3 (1.2-5.4); Lymphocytes % (Auto) 29.2 % (13.4-35.0); Mean Corpuscular HGB Conc 33 % (30-34); Mean Corpuscular Volume 81 fl (79-97); Monocytes # (Auto) 0.7 K/mm3 (0.0-0.8); Monocytes % (Auto) 6.4 % (0.0-7.3); Platelet Count 351 K/mm3 (140-440); Red Blood Count 4.97 M/mm3 (3.65-5.03); Red Cell Distribution Width 14.8 % (13.2-15.2)
[2021-04-14 21:20] LABS: Alanine Aminotransferase 19 units/L (7-56); Albumin 4.1 g/dL (3.9-5); BUN/Creatinine Ratio 19; Blood Urea Nitrogen 15 mg/dL (7-17); Calcium 9.3 mg/dL (8.4-10.2); Hemolysis Index 9
[2021-04-14] MEDS ORDERED: MORPHINE 4 MG/1 ML INJ IV ONE (22:55)
[2021-04-14] MEDS ORDERED: SODIUM CHLORIDE 0.9% 1000 ML 1,000 ML IV ONE (22:55)
[2021-04-14] MEDS ORDERED: FAMOTIDINE 20 MG/2 ML INJ IV ONE (22:55)
[2021-04-14] MEDS ORDERED: ONDANSETRON 4 MG/2 ML INJ IV ONE (22:55)
[2021-04-14] MEDS ORDERED: DICYCLOMINE 20 MG TAB PO ONE (22:55)
--- NOTE | 2021-04-15 00:08 | Emergency Department Report ---
<IDALIA DALE - Last Filed: 04/15/21 00:39> ED Abdominal Pain HPI - General Chief Complaint: Nausea/Vomiting/Diarrhea Stated Complaint: FEEL LIKE VOMITING/ STOMACH Time Seen by Provider: 04/14/21 22:50 Source: patient Mode of arrival: Ambulatory Limitations: No Limitations - History of Present Illness Initial Comments: This is a 40-year-old female nontoxic, well nourished in appearance, no acute signs of distress presents to the ED with c/o of nausea and vomiting and abdominal pain several days. Patient describes vomiting as food content and yellow gastric acid. Patient describes abdominal pain as cramping and aching with level of 8/10 diffuse. Patient denies chest pain, short of breath, fever, hemoptysis, blood in stool, chills, headache, stiff neck, numbness or tingling. Patient denies any diarrhea or constipation. Denies any blood in stool. Patient denies any recent travels. Patient patient stated allergies to penicillin. MD Complaint: abdominal pain -: days(s) Location: diffuse Radiation: none Migration to: no migration Severity: mild Severity scale (0 -10): 8 Quality: cramping, aching Consistency: constant Improves With: nothing Worsens With: nothing Associated Symptoms: nausea, vomiting. denies: diarrhea, fever, chills, constipation, dysuria, hematemesis, hematochezia, melena, hematuria, anorexia, syncope - Related Data Home Medications Medication Instructions Recorded Confirmed Last Taken Albuterol Sulfate [Ventolin HFA] 2 puff IH Q4H PRN 11/11/13 11/11/13 Unknown Amitriptyline [Elavil] 50 mg PO QHS 11/11/13 11/11/13 Unknown Citalopram Hydrobromide [Celexa] 40 mg PO QDAY 11/11/13 11/11/13 Unknown Previous Rx's Medication Instructions Recorded Last Taken Type Albuterol Sulfate [Ventolin HFA] 2 puff IH Q4H PRN #1 hfa.aer.ad 11/11/13 Unknown Rx Azithromycin [Zithromax Z-KAYDEN] 250 mg PO DAILY #6 tablet 11/11/13 Unknown Rx Promethazine Dm (Nf) [Phenergan DM 5 ml PO Q6H PRN #120 ml 11/11/13 Unknown Rx 6.25-15 mg/5 ml] predniSONE [Deltasone] 20 mg PO BID #10 tab 11/11/13 Unknown Rx HYDROcodone/APAP 5-325 [Basin 1 each PO Q6HR PRN #10 tablet 05/18/14 Unknown Rx 5/325] Ibuprofen [Motrin] 800 mg PO Q8HR PRN #20 tablet 07/31/16 Unknown Rx HYDROcodone/APAP 5-325 [Basin 1 each PO Q6HR PRN #10 tablet 11/11/16 Unknown Rx 5/325] Omeprazole 20 mg PO BID 30 Days #60 tablet. 02/01/18 Unknown Rx Ondansetron [Zofran Odt] 4 mg PO Q8H PRN #12 tab.rapdis 02/01/18 Unknown Rx Cyclobenzaprine [Flexeril] 10 mg PO QHS PRN #10 tablet 04/29/18 Unknown Rx Ibuprofen [Motrin] 600 mg PO Q8H PRN #30 tablet 04/29/18 Unknown Rx Benzonatate [Tessalon Perles] 100 mg PO Q8HR PRN #14 capsule 07/09/19 Unknown Rx Cetirizine HCl [Zyrtec 10mg tab] 10 mg PO DAILY #14 tablet 07/09/19 Unknown Rx Fluticasone [Flonase] 1 spray NS QDAY #1 bottle 07/09/19 Unknown Rx Oseltamivir [Tamiflu] 75 mg PO BID 5 Days #10 cap 07/09/19 Unknown Rx Doxycycline Hyclate [Doxycycline 100 mg PO Q12HR 10 Days #20 tab 09/13/19 Unknown Rx Hyclate TAB] methylPREDNISolone [Medrol 4MG 4 mg PO DAILY 6 Days #1 tab.ds.pk 09/13/19 Unknown Rx DOSEPAK (21 tabs)] Acetaminophen/Codeine [Tylenol 1 tab PO Q8H PRN #8 tab 02/22/20 Unknown Rx /Codeine # 3 tab] Ibuprofen [Motrin 800 MG tab] 800 mg PO Q8HR PRN #21 tablet 02/22/20 Unknown Rx Ondansetron [Zofran Odt] 4 mg PO Q8HR PRN #15 tab.rapdis 02/22/20 Unknown Rx Ondansetron [Zofran Odt] 4 mg PO Q8HR PRN #12 tab.rapdis 03/17/20 Unknown Rx Ibuprofen [Motrin] 600 mg PO Q8H PRN #30 tablet 04/04/20 Unknown Rx Ondansetron [Zofran Odt] 4 mg PO Q6HR PRN #20 tab.rapdis 04/04/20 Unknown Rx Acetaminophen [Acetaminophen 8 650 mg PO Q8H PRN #12 tablet.er 04/15/21 Unknown Rx Hour] Dicyclomine [Bentyl] 20 mg PO Q12H PRN #12 tablet 04/15/21 Unknown Rx Ondansetron [Zofran Odt] 4 mg PO Q12H PRN #12 tab.rapdis 04/15/21 Unknown Rx Allergies Allergy/AdvReac Type Severity Reaction Status Date / Time Penicillins Allergy Hives Verified 03/17/20 17:32 ED Review of Systems Comment: All other systems reviewed and negative Constitutional: denies: chills, fever Eyes: denies: eye pain, eye discharge, vision change ENT: denies: ear pain, throat pain Respiratory: denies: cough, shortness of breath, wheezing Cardiovascular: denies: chest pain, palpitations Endocrine: no symptoms reported Gastrointestinal: abdominal pain, nausea, vomiting. denies: diarrhea, constipation, hematemesis, melena, hematochezia Genitourinary: denies: urgency, dysuria, discharge Musculoskeletal: denies: back pain, joint swelling, arthralgia Skin: denies: rash, lesions Neurological: denies: headache, weakness, paresthesias Psychiatric: denies: anxiety, depression Hematological/Lymphatic: denies: easy bleeding, easy bruising ED Past Medical Hx - Past Medical History Previous Medical History?: Yes Hx Psychiatric Treatment: Yes (PTSD, Anxiety, Depression) Additional medical history: hepatitis B, OVARIAN CYSTS. bronchitis - Surgical History Past Surgical History?: Yes Additional Surgical History: tubal ligation 2001, TONSILECTOMY - Social History Smoking Status: Never Smoker Substance Use Type: None - Medications Home Medications: Home Medications Medication Instructions Recorded Confirmed Last Taken Type Albuterol Sulfate [Ventolin HFA] 2 puff IH Q4H PRN 11/11/13 11/11/13 Unknown History Albuterol Sulfate [Ventolin HFA] 2 puff IH Q4H PRN #1 hfa.aer.ad 11/11/13 Unknown Rx Amitriptyline [Elavil] 50 mg PO QHS 02/18/14 02/18/14 Unknown History Azithromycin [Zithromax Z-KAYDEN] 250 mg PO DAILY #6 tablet 11/11/13 Unknown Rx Citalopram Hydrobromide [Celexa] 40 mg PO QDAY 11/11/13 11/11/13 Unknown History Promethazine Dm (Nf) [Phenergan DM 5 ml PO Q6H PRN #120 ml 11/11/13 Unknown Rx 6.25-15 mg/5 ml] predniSONE [Deltasone] 20 mg PO BID #10 tab 11/11/13 Unknown Rx HYDROcodone/APAP 5-325 [Basin 1 each PO Q6HR PRN #10 tablet 05/18/14 Unknown Rx 5/325] Ibuprofen [Motrin] 800 mg PO Q8HR PRN #20 tablet 07/31/16 Unknown Rx HYDROcodone/APAP 5-325 [Basin 1 each PO Q6HR PRN #10 tablet 11/11/16 Unknown Rx 5/325] Omeprazole 20 mg PO BID 30 Days #60 tablet. 02/01/18 Unknown Rx Ondansetron [Zofran Odt] 4 mg PO Q8H PRN #12 tab.rapdis 02/01/18 Unknown Rx Cyclobenzaprine [Flexeril] 10 mg PO QHS PRN #10 tablet 04/29/18 Unknown Rx Ibuprofen [Motrin] 600 mg PO Q8H PRN #30 tablet 04/29/18 Unknown Rx Benzonatate [Tessalon Perles] 100 mg PO Q8HR PRN #14 capsule 07/09/19 Unknown Rx Cetirizine HCl [Zyrtec 10mg tab] 10 mg PO DAILY #14 tablet 07/09/19 Unknown Rx Fluticasone [Flonase] 1 spray NS QDAY #1 bottle 07/09/19 Unknown Rx Oseltamivir [Tamiflu] 75 mg PO BID 5 Days #10 cap 07/09/19 Unknown Rx Doxycycline Hyclate [Doxycycline 100 mg PO Q12HR 10 Days #20 tab 09/13/19 Unknown Rx Hyclate TAB] methylPREDNISolone [Medrol 4MG 4 mg PO DAILY 6 Days #1 tab.ds.pk 09/13/19 Unknown Rx DOSEPAK (21 tabs)] Acetaminophen/Codeine [Tylenol 1 tab PO Q8H PRN #8 tab 02/22/20 Unknown Rx /Codeine # 3 tab] Ibuprofen [Motrin 800 MG tab] 800 mg PO Q8HR PRN #21 tablet 02/22/20 Unknown Rx Ondansetron [Zofran Odt] 4 mg PO Q8HR PRN #15 tab.rapdis 02/22/20 Unknown Rx Ondansetron [Zofran Odt] 4 mg PO Q8HR PRN #12 tab.rapdis 03/17/20 Unknown Rx Ibuprofen [Motrin] 600 mg PO Q8H PRN #30 tablet 04/04/20 Unknown Rx Ondansetron [Zofran Odt] 4 mg PO Q6HR PRN #20 tab.rapdis 04/04/20 Unknown Rx Acetaminophen [Acetaminophen 8 650 mg PO Q8H PRN #12 tablet.er 04/15/21 Unknown Rx Hour] Dicyclomine [Bentyl] 20 mg PO Q12H PRN #12 tablet 04/15/21 Unknown Rx Ondansetron [Zofran Odt] 4 mg PO Q12H PRN #12 tab.rapdis 04/15/21 Unknown Rx ED Physical Exam - General Limitations: No Limitations General appearance: alert, in no apparent distress - Head Head exam: Present: atraumatic, normocephalic - Eye Eye exam: Present: normal appearance - Neck Neck exam: Present: normal inspection, full ROM. Absent: lymphadenopathy - Respiratory Respiratory exam: Present: normal lung sounds bilaterally. Absent: respiratory distress, wheezes, rales, rhonchi, stridor, chest wall tenderness, accessory muscle use, decreased breath sounds, prolonged expiratory - Cardiovascular Cardiovascular Exam: Present: regular rate, normal rhythm, normal heart sounds. Absent: bradycardia, tachycardia, irregular rhythm, systolic murmur, diastolic murmur, rubs, gallop - GI/Abdominal GI/Abdominal exam: Present: soft, tenderness (diffuse), normal bowel sounds. Absent: distended, guarding, rebound, rigid, diminished bowel sounds - Extremities Exam Extremities exam: Present: full ROM - Back Exam Back exam: Present: normal inspection, full ROM. Absent: tenderness, CVA tend erness (R), CVA tenderness (L), muscle spasm, paraspinal tenderness, vertebral tenderness, rash noted - Neurological Exam Neurological exam: Present: alert, oriented X3, normal gait - Psychiatric Psychiatric exam: Present: normal affect, normal mood - Skin Skin exam: Present: warm, dry, intact, normal color. Absent: rash ED Course - Reevaluation(s) Reevaluation #1: 04/15/21 00:08 Patient is speaking in full sentences with no signs of distress noted. ED Medical Decision Making - Lab Data Result diagrams: 04/14/21 20:40 04/14/21 20:40 Lab Results 04/14/21 04/14/21 04/14/21 Range/Units 20:40 20:40 20:40 WBC 11.1 H (4.5-11.0) K/mm3 RBC 4.97 (3.65-5.03) M/mm3 Hgb 13.2 (10.1-14.3) gm/dl Hct 40.3 (30.3-42.9) % MCV 81 (79-97) fl MCH 27 L (28-32) pg MCHC 33 (30-34) % RDW 14.8 (13.2-15.2) % Plt Count 351 (140-440) K/mm3 Lymph % (Auto) 29.2 (13.4-35.0) % [place] % (Auto) 6.4 (0.0-7.3) % Eos % (Auto) 0.8 (0.0-4.3) % Baso % (Auto) 1.0 (0.0-1.8) % Lymph # (Auto) 3.2 (1.2-5.4) K/mm3 [place] # (Auto) 0.7 (0.0-0.8) K/mm3 Eos # (Auto) 0.1 (0.0-0.4) K/mm3 Baso # (Auto) 0.1 (0.0-0.1) K/mm3 Seg Neutrophils % 62.6 (40.0-70.0) % Seg Neutrophils # 6.9 (1.8-7.7) K/mm3 Sodium 135 L (137-145) mmol/L Potassium 3.8 (3.6-5.0) mmol/L Chloride 103.3 (98-107) mmol/L Carbon Dioxide 21 L (22-30) mmol/L Anion Gap 15 mmol/L BUN 15 (7-17) mg/dL Creatinine 0.8 (0.6-1.2) mg/dL Estimated GFR > 60 ml/min BUN/Creatinine Ratio 19 % Glucose 81 (65-100) mg/dL Calcium 9.3 (8.4-10.2) mg/dL Magnesium (1.7-2.3) mg/dL Total Bilirubin 0.20 (0.1-1.2) mg/dL AST 14 (5-40) units/L ALT 19 (7-56) units/L Alkaline Phosphatase 94 (35-129) units/L Total Protein 7.2 (6.3-8.2) g/dL Albumin 4.1 (3.9-5) g/dL Albumin/Globulin Ratio 1.3 % Lipase 26 (13-60) units/L HCG, Qual Negative (Negative) Urine Color (Yellow) Urine Turbidity (Clear) Urine pH (5.0-7.0) Ur Specific [place] (1.003-1.030) Urine Protein (Negative) mg/dL Urine Glucose (UA) (Negative) mg/dL Urine Ketones (Negative) mg/dL Urine Blood (Negative) Urine Nitrite (Negative) Urine Bilirubin (Negative) Urine Urobilinogen (<2.0) mg/dL Ur Leukocyte Esterase (Negative) Urine WBC (Auto) (0.0-6.0) /HPF Urine RBC (Auto) (0.0-6.0) /HPF U Epithel Cells (Auto) (0-13.0) /HPF Urine Mucus /HPF 04/14/21 04/14/21 Range/Units 20:40 Unknown WBC (4.5-11.0) K/mm3 RBC (3.65-5.03) M/mm3 Hgb (10.1-14.3) gm/dl Hct (30.3-42.9) % MCV (79-97) fl MCH (28-32) pg MCHC (30-34) % RDW (13.2-15.2) % Plt Count (140-440) K/mm3 Lymph % (Auto) (13.4-35.0) % [place] % (Auto) (0.0-7.3) % Eos % (Auto) (0.0-4.3) % Baso % (Auto) (0.0-1.8) % Lymph # (Auto) (1.2-5.4) K/mm3 [place] # (Auto) (0.0-0.8) K/mm3 Eos # (Auto) (0.0-0.4) K/mm3 Baso # (Auto) (0.0-0.1) K/mm3 Seg Neutrophils % (40.0-70.0) % Seg Neutrophils # (1.8-7.7) K/mm3 Sodium (137-145) mmol/L Potassium (3.6-5.0) mmol/L Chloride (98-107) mmol/L Carbon Dioxide (22-30) mmol/L Anion Gap mmol/L BUN (7-17) mg/dL Creatinine (0.6-1.2) mg/dL Estimated GFR ml/min BUN/Creatinine Ratio % Glucose (65-100) mg/dL Calcium (8.4-10.2) mg/dL Magnesium 2.00 (1.7-2.3) mg/dL Total Bilirubin (0.1-1.2) mg/dL AST (5-40) units/L ALT (7-56) units/L Alkaline Phosphatase (35-129) units/L Total Protein (6.3-8.2) g/dL Albumin (3.9-5) g/dL Albumin/Globulin Ratio % Lipase (13-60) units/L HCG, Qual (Negative) Urine Color Yellow (Yellow) Urine Turbidity Clear (Clear) Urine pH 5.0 (5.0-7.0) Ur Specific [place] 1.034 H (1.003-1.030) Urine Protein <15 mg/dl (Negative) mg/dL Urine Glucose (UA) Neg (Negative) mg/dL Urine Ketones Tr (Negative) mg/dL Urine Blood Sm (Negative) Urine Nitrite Neg (Negative) Urine Bilirubin Neg (Negative) Urine Urobilinogen < 2.0 (<2.0) mg/dL Ur Leukocyte Esterase Neg (Negative) Urine WBC (Auto) 2.0 (0.0-6.0) /HPF Urine RBC (Auto) 2.0 (0.0-6.0) /HPF U Epithel Cells (Auto) 1.0 (0-13.0) /HPF Urine Mucus Few /HPF - Radiology Data [facility] [address] [place] [address] Cat Scan Report Signed Patient: ERIN ONOFRE MR#: [id number] : 1980 Acct:[id number] Age/Sex: 40 / F ADM Date: 04/14/21 Loc: ED Attending Dr: Ordering Physician: IDALIA DALE NP Date of Service: 04/14/21 Procedure(s): CT abdomen pelvis w con Accession Number(s): [id number] cc: IDALIA DALE NP CT ABDOMEN AND PELVIS WITH CONTRAST HISTORY: Abdominal pain with nausea and vomiting x 3 days. COMPARISON: 03/17/2020 TECHNIQUE: CT images of the abdomen and pelvis were obtained following administration of intravenous contrast. All CT scans at this location are performed using CT dose reduction for ALARA by means of automated exposure control. CONTRAST: 100 ml of intravenous contrast administered. FINDINGS: Lungs/bones: Lung bases are clear Abdomen/pelvis: The liver, spleen, adrenal glands, pancreas, gallbladder and upper GI tract appear normal. Bilateral kidneys appear normal. No evidence for appendicitis is seen. The uterus is mildly enlarged. There is endometrial fluid. Right adnexal cysts again noted. Urinary bladder appears normal. No acute bone findings are identified. IMPRESSION: 1. Right adnexal cyst. Fluid in the endometrium. Findings appears similar to 2019. 2. No CT evidence for appendicitis. No acute inflammatory change. Signer Name: Aramis Rascon MD Signed: 04/15/2021 12:21 AM Workstation Name: [id number] Transcribed By: Dictated By: BENJAMIN RASCON MD Electronically Authenticated By: BENJAMIN RASCON MD Signed Date/Time: 04/15/21 002 DD/ [id number] TD/TT: - Medical Decision Making This is a 40-year-old female that presents with abdominal pain and right ovarian cyst.. Patient is stable and was examined by me. Negative signs of symptoms of appendicitis. Labs obtained. UA obtained. CT of abdomen obtained and dictated by the radiologist. Patient is notified of the report with no questions noted by the patient. Vital signs are stable prior to discharge. Patient received medical treatment in the ED which patient stated symptoms has resovled and subsided. Was instructed note to operate any machinery due to possible drowsiness and stated someone will drive the patient home. A by mouth challenge has been obtained and patient tolerated well with no nausea vomiting. Patient was also instructed to Follow-up with a primary care doctor in 3-5 days or if symptoms worsen and continue return to emergency room as soon as possible. At time of discharge, the patient does not seem toxic or ill in appearance. No acute signs of distress noted. Patient agrees to discharge treatment plan of care. No further questions noted by the patient. ED Disposition Clinical Impression: Right ovarian cyst Abdominal pain Qualifiers: Abdominal location: generalized Qualified Code(s): R10.84 - Generalized abdominal pain Nausea & vomiting Qualifiers: Vomiting type: unspecified Vomiting Intractability: non-intractable Qualified Code(s): R11.2 - Nausea with vomiting, unspecified Disposition: DC- TO HOME OR SELFCARE Is pt being admited?: No Does the pt Need Aspirin: No Condition: Stable Instructions: Abdominal Pain, Adult, Nausea and Vomiting, Adult Additional Instructions: Follow-up with a primary care and durable medical equipment repairer doctor in 3-5 days or if symptoms worsen and continue return to emergency room as soon as possible. Prescriptions: Acetaminophen [Acetaminophen 8 Hour] 650 mg PO Q8H PRN #12 tablet.er PRN Reason: Pain , Severe (7-10) Dicyclomine [Bentyl] 20 mg PO Q12H PRN #12 tablet PRN Reason: abdominal pain Ondansetron [Zofran Odt] 4 mg PO Q12H PRN #12 tab.rapdis PRN Reason: Nausea Referrals: PRIMARY MD TIMMY [Primary Care Provider] - 3-5 Days NAMRATA PINEDO MD [Staff Physician] - 3-5 Days [facility] [Provider Group] - 3-5 Days Time of Disposition: 00:43 <TUTU MINOR - Last Filed: 04/15/21 01:39> ED Review of Systems ROS: Stated complaint: FEEL LIKE VOMITING/ STOMACH Other details as noted in HPI ED Course Vital Signs 04/14/21 19:54 Temperature 98.7 F Pulse Rate 96 H Respiratory 17 Rate Blood Pressure 141/88 O2 Sat by Pulse 98 Oximetry - Reevaluation(s) Reevaluation #2: 04/15/21 01:38 Although the patient's abdominal pain is not suggestive of ovarian torsion, in light of the only CT finding being right ovarian cyst, the patient was told about the possibility of intermittent ovarian torsion and advised that if her symptoms return, worsen, or she develops any other significant concerns she should return to the emergency department immediately. ED Medical Decision Making - Lab Data Result diagrams: 04/14/21 20:40 04/14/21 20:40 Critical care attestation.: If time is entered above; I have spent that time in minutes in the direct care of this critically ill patient, excluding procedure time. ED Disposition Is pt being admited?: No
[2021-04-15 00:23] LABS: Bilirubin,Urine NEG (Negative); Blood,Urine SM (Negative); Color,Urine Yellow (Yellow); Mucus,Urine FEW /HPF; Protein,Urine <15 mg/dL mg/dL (Negative); Urobilinogen,Urine < 2.0 mg/dL (<2.0)
--- NOTE | 2021-04-15 00:26 | Cat Scan Report ---
CT ABDOMEN AND PELVIS WITH CONTRAST HISTORY: Abdominal pain with nausea and vomiting x 3 days. COMPARISON: 03/17/2020 TECHNIQUE: CT images of the abdomen and pelvis were obtained following administration of intravenous contrast. All CT scans at this location are performed using CT dose reduction for ALARA by means of automated exposure control. CONTRAST: 100 ml of intravenous contrast administered. FINDINGS: Lungs/bones: Lung bases are clear Abdomen/pelvis: The liver, spleen, adrenal glands, pancreas, gallbladder and upper GI tract appear n ormal. Bilateral kidneys appear normal. No evidence for appendicitis is seen. The uterus is mildly en larged. There is endometrial fluid. Right adnexal cysts again noted. Urinary bladder appears normal. No acute bone findings are identified. IMPRESSION: 1. Right adnexal cyst. Fluid in the endometrium. Findings appears similar to 2019. 2. No CT evidence for appendicitis. No acute inflammatory change. Signer Name: Aramis Rascon MD Signed: 04/15/2021 12:21 AM Workstation Name: [id number]
== END 2021-04-15 03:08 | disposition home or self-care (01) ==
LOC: ED 19:12
DX: N83.201 Unspecified ovarian cyst, right side (principal); R10.84 Generalized abdominal pain; R11.2 Nausea with vomiting, unspecified; F41.9 Anxiety disorder, unspecified; Z98.51 Tubal ligation status; Z90.89 Acquired absence of other organs; Z79.899 Other long term (current) drug therapy; Z88.0 Allergy status to penicillin
CPT/HCPCS: 36415; 74177; 80053; 81001; 83690; 83735; 84703; 85025; 96361; 96374; 96375; 99284; J2270; J2405; J7030; Q9967

== ENCOUNTER 2021-04-21 23:08 | Emergency (ER) | payer MEDICARE ==
[2021-04-22 01:05] VITALS: BP 119/71
--- NOTE | 2021-04-22 01:50 | Emergency Department Report ---
ED General Adult HPI - General Chief complaint: Sore Throat Stated complaint: SORE THROAT/COUGHING Time Seen by Provider: 04/22/21 01:38 Source: patient Mode of arrival: Ambulatory Limitations: No Limitations - History of Present Illness Initial comments: 40-year-old female patient presents to the emergency department with complaints of sore throat and nonproductive cough for 3 days. No known sick contacts. No current steroid or antibiotic use. No recent travel. Patient has not received her COVID-19 vaccination series. Patient has not been tested for COVID-19. Patient was previously diagnosed with "bronchitis" several years ago and has been using a leftover inhaler, as well as Mucinex and cough drops, with limited relief. Patient does not use tobacco. Patient has never been hospitalized for pneumonia. Patient has no known history of chronic lung disease. Denies fever, chills, wheezing, hemoptysis, sneezing, congestion. Denies all other complaints at this time. Severity scale (0 -10): 0 - Related Data Home Medications Medication Instructions Recorded Confirmed Last Taken Albuterol Sulfate [Ventolin HFA] 2 puff IH Q4H PRN 11/11/13 11/11/13 Unknown Amitriptyline [Elavil] 50 mg PO QHS 11/11/13 11/11/13 Unknown Citalopram Hydrobromide [Celexa] 40 mg PO QDAY 11/11/13 11/11/13 Unknown Previous Rx's Medication Instructions Recorded Last Taken Type Albuterol Sulfate [Ventolin HFA] 2 puff IH Q4H PRN #1 hfa.aer.ad 11/11/13 Unkno wn Rx Azithromycin [Zithromax Z-KAYDEN] 250 mg PO DAILY #6 tablet 11/11/13 Unknown Rx Promethazine Dm (Nf) [Phenergan DM 5 ml PO Q6H PRN #120 ml 11/11/13 Unknown Rx 6.25-15 mg/5 ml] predniSONE [Deltasone] 20 mg PO BID #10 tab 11/11/13 Unknown Rx HYDROcodone/APAP 5-325 [Webster 1 each PO Q6HR PRN #10 tablet 05/18/14 Unknown Rx 5/325] Ibuprofen [Motrin] 800 mg PO Q8HR PRN #20 tablet 07/31/16 Unknown Rx HYDROcodone/APAP 5-325 [Webster 1 each PO Q6HR PRN #10 tablet 11/11/16 Unknown Rx 5/325] Omeprazole 20 mg PO BID 30 Days #60 tablet. 02/01/18 Unknown Rx Ondansetron [Zofran Odt] 4 mg PO Q8H PRN #12 tab.rapdis 02/01/18 Unknown Rx Cyclobenzaprine [Flexeril] 10 mg PO QHS PRN #10 tablet 04/29/18 Unknown Rx Ibuprofen [Motrin] 600 mg PO Q8H PRN #30 tablet 04/29/18 Unknown Rx Benzonatate [Tessalon Perles] 100 mg PO Q8HR PRN #14 capsule 07/09/19 Unknown Rx Cetirizine HCl [Zyrtec 10mg tab] 10 mg PO DAILY #14 tablet 07/09/19 Unknown Rx Fluticasone [Flonase] 1 spray NS QDAY #1 bottle 07/09/19 Unknown Rx Oseltamivir [Tamiflu] 75 mg PO BID 5 Days #10 cap 07/09/19 Unknown Rx Doxycycline Hyclate [Doxycycline 100 mg PO Q12HR 10 Days #20 tab 09/13/19 Unknown Rx Hyclate TAB] methylPREDNISolone [Medrol 4MG 4 mg PO DAILY 6 Days #1 tab.ds.pk 09/13/19 Unknown Rx DOSEPAK (21 tabs)] Acetaminophen/Codeine [Tylenol 1 tab PO Q8H PRN #8 tab 02/22/20 Unknown Rx /Codeine # 3 tab] Ibuprofen [Motrin 800 MG tab] 800 mg PO Q8HR PRN #21 tablet 02/22/20 Unknown Rx Ondansetron [Zofran Odt] 4 mg PO Q8HR PRN #15 tab.rapdis 02/22/20 Unknown Rx Ondansetron [Zofran Odt] 4 mg PO Q8HR PRN #12 tab.rapdis 03/17/20 Unknown Rx Ibuprofen [Motrin] 600 mg PO Q8H PRN #30 tablet 04/04/20 Unknown Rx Ondansetron [Zofran Odt] 4 mg PO Q6HR PRN #20 tab.rapdis 04/04/20 Unknown Rx Acetaminophen [Acetaminophen 8 650 mg PO Q8H PRN #12 tablet.er 04/15/21 Unknown Rx Hour] Dicyclomine [Bentyl] 20 mg PO Q12H PRN #12 tablet 04/15/21 Unknown Rx Ondansetron [Zofran Odt] 4 mg PO Q12H PRN #12 tab.rapdis 04/15/21 Unknown Rx Benzonatate [Tessalon Perles] 200 mg PO Q8HR #30 capsule 04/22/21 Unknown Rx Allergies Allergy/AdvReac Type Severity Reaction Status Date / Time Penicillins Allergy Hives Verified 03/17/20 17:32 ED Review of Systems ROS: Stated complaint: SORE THROAT/COUGHING Other details as noted in HPI Other: GENERAL: Negative for fever, chills, weight change, anorexia, fatigue. ENT: Positive for sore throat. CARDIOVASCULAR: Negative for chest pain, palpitations, lower extremity swelling. PULMONARY: Positive for cough. GASTROINTESTINAL: Negative for abdominal pain, nausea, vomiting, diarrhea, constipation. MUSCULOSKELETAL: Negative for joint pain, joint swelling, myalgias, back pain, neck pain. NEUROLOGICAL: Negative for headache, seizure, syncope, paresthesias, weakness. INTEGUMENTARY: Negative for erythema, rash, diaphoresis, laceration, ecchymosis. HEMATOLOGICAL: Negative for hemoptysis, hematemesis, hematochezia, hematuria. PSYCHIATRIC: Negative for hallucinations, suicidal ideation, homicidal ideation, anxiety, depression. ED Past Medical Hx - Past Medical History Previous Medical History?: Yes Hx Psychiatric Treatment: Yes (PTSD, Anxiety, Depression) Additional medical history: hepatitis B, OVARIAN CYSTS. bronchitis - Surgical History Past Surgical History?: Yes Additional Surgical History: tubal ligation 2001, TONSILECTOMY - Social History Smoking Status: Never Smoker Substance Use Type: None - Medications Home Medications: Home Medications Medication Instructions Recorded Confirmed Last Taken Type Albuterol Sulfate [Ventolin HFA] 2 puff IH Q4H PRN 11/11/13 11/11/13 Unknown History Albuterol Sulfate [Ventolin HFA] 2 puff IH Q4H PRN #1 hfa.aer.ad 11/11/13 Unknown Rx Amitriptyline [Elavil] 50 mg PO QHS 11/11/13 11/11/13 Unknown History Azithromycin [Zithromax Z-KAYDEN] 250 mg PO DAILY #6 tablet 11/11/13 Unknown Rx Citalopram Hydrobromide [Celexa] 40 mg PO QDAY 11/11/13 11/11/13 Unknown History Promethazine Dm (Nf) [Phenergan DM 5 ml PO Q6H PRN #120 ml 11/11/13 Unknown Rx 6.25-15 mg/5 ml] predniSONE [Deltasone] 20 mg PO BID #10 tab 11/11/13 Unknown Rx HYDROcodone/APAP 5-325 [Webster 1 each PO Q6HR PRN #10 tablet 05/18/14 Unknown Rx 5/325] Ibuprofen [Motrin] 800 mg PO Q8HR PRN #20 tablet 07/31/16 Unknown Rx HYDROcodone/APAP 5-325 [Webster 1 each PO Q6HR PRN #10 tablet 11/11/16 Unknown Rx 5/325] Omeprazole 20 mg PO BID 30 Days #60 tablet. 02/01/18 Unknown Rx Ondansetron [Zofran Odt] 4 mg PO Q8H PRN #12 tab.rapdis 02/01/18 Unknown Rx Cyclobenzaprine [Flexeril] 10 mg PO QHS PRN #10 tablet 04/29/18 Unknown Rx Ibuprofen [Motrin] 600 mg PO Q8H PRN #30 tablet 04/29/18 Unknown Rx Benzonatate [Tessalon Perles] 100 mg PO Q8HR PRN #14 capsule 07/09/19 Unknown Rx Cetirizine HCl [Zyrtec 10mg tab] 10 mg PO DAILY #14 tablet 07/09/19 Unknown Rx Fluticasone [Flonase] 1 spray NS QDAY #1 bottle 07/09/19 Unknown Rx Oseltamivir [Tamiflu] 75 mg PO BID 5 Days #10 cap 07/09/19 Unknown Rx Doxycycline Hyclate [Doxycycline 100 mg PO Q12HR 10 Days #20 tab 09/13/19 Unknown Rx Hyclate TAB] methylPREDNISolone [Medrol 4MG 4 mg PO DAILY 6 Days #1 tab.ds.pk 09/13/19 Unknown Rx DOSEPAK (21 tabs)] Acetaminophen/Codeine [Tylenol 1 tab PO Q8H PRN #8 tab 02/22/20 Unknown Rx /Codeine # 3 tab] Ibuprofen [Motrin 800 MG tab] 800 mg PO Q8HR PRN #21 tablet 02/22/20 Unknown Rx Ondansetron [Zofran Odt] 4 mg PO Q8HR PRN #15 tab.rapdis 02/22/20 Unknown Rx Ondansetron [Zofran Odt] 4 mg PO Q8HR PRN #12 tab.rapdis 03/17/20 Unknown Rx Ibuprofen [Motrin] 600 mg PO Q8H PRN #30 tablet 04/04/20 Unknown Rx Ondansetron [Zofran Odt] 4 mg PO Q6HR PRN #20 tab.rapdis 04/04/20 Unknown Rx Acetaminophen [Acetaminophen 8 650 mg PO Q8H PRN #12 tablet.er 04/15/21 Unknown Rx Hour] Dicyclomine [Bentyl] 20 mg PO Q12H PRN #12 tablet 04/15/21 Unknown Rx Ondansetron [Zofran Odt] 4 mg PO Q12H PRN #12 tab.rapdis 04/15/21 Unknown Rx Benzonatate [Tessalon Perles] 200 mg PO Q8HR #30 capsule 04/22/21 Unknown Rx ED Physical Exam - General Limitations: No Limitations - Other Other exam information: General: Awake and alert. No acute distress. Coughing. Head: Atraumatic, normocephalic. Eyes: EOMI. Pupils are equal and round. Normal sclera and conjunctiva. ENT: Oral mucosa is moist. Mild pharyngeal erythema without tonsillar swelling or exudate. Neck: Supple. No lymphadenopathy. Pulmonary: Persistent nonproductive cough. No respiratory distress. Clear to auscultation bilaterally. Cardiac: Regular rate and rhythm. Pulses are palpable and equal bilaterally. No lower extremity cyanosis or edema. Skin: Warm and dry. No rashes. Abdomen: Soft, non-tender, non-protuberant. No guarding, rigidity, or rebound. Bowel sounds are normal. No organomegaly or masses noted. Back: Normal alignment. No CVA tenderness. Extremities: Symmetrical. Full range of motion intact. Neurological: Alert and oriented, appropriately interactive, no focal deficits. Psych: Cooperative. Appropriate mood and affect. Speech is evenly metered. Thoughts are logically construed. ED Course Vital Signs 04/22/21 01:04 Temperature 99.7 F H Pulse Rate 86 Respiratory 20 Rate Blood Pressure 119/71 [Right] O2 Sat by Pulse 99 Oximetry ED Medical Decision Making - Medical Decision Making Patient presents to the emergency department with complaints of nonproductive cough and sore throat for 3 days. Patient is afebrile, hemodynamically stable, no hypoxia, no respiratory distress. Lungs clear to auscultation. No known history of chronic lung disease. No history of tobacco use. COVID-19 testing is currently unavailable at this facility. History exam findings suggestive of viral upper respiratory infection. No clinical indication for further diagnostic work-up on an emergent basis at this time. Patient will be discharged home with appropriate symptomatic treatment and referred to primary care provider for close outpatient follow-up. Patient expressed understanding and is agreeable to plan of care. Disease transmission precautions discussed. Strict return precautions provided. History, exam, diagnostic testing, and current condition do not suggest worrisome pathology to warrant further testing, continued ED treatment, admission, or surgical evaluation at this point. Given the low probability of a significant medical illness, it would be more likely to result in harm than benefit to perform further testing at this stage. Discussed findings, presumptive diagnosis, need for follow-up and specific signs/symptoms that should prompt immediate return to the emergency department. Instructions were explained in detail to the patient in addition to giving written discharge inf ormation. Patient expressed understanding and was given the opportunity to ask questions, all of which were satisfactorily answered prior to discharge home. Critical care attestation.: If time is entered above; I have spent that time in minutes in the direct care of this critically ill patient, excluding procedure time. ED Disposition Clinical Impression: Viral upper respiratory tract infection with cough Disposition: TO HOME OR SELFCARE Is pt being admited?: No Does the pt Need Aspirin: No Condition: Stable Instructions: Upper Respiratory Infection, Adult, [id number] Additional Instructions: Take Tylenol every 4 hours and Motrin every 8 hours as needed for pain. Take Tessalon as directed for cough. Honey is an excellent natural cough suppressant. Rest. Drink plenty of fluids. Wash hands frequently to prevent disease transmission. Do not share food or drinks with others. Follow-up with primary care provider this week. Call tomorrow to schedule an appointment. Return to the emergency department immediately for new or worsening symptoms. Prescriptions: Benzonatate [Tessalon Perles] 200 mg PO Q8HR #30 capsule Referrals: [facility] [Provider Group] - 3-5 Days Time of Disposition: 01:54
[2021-04-22] MEDS ORDERED: IBUPROFEN 600 MG TAB PO ONE (02:18)
[2021-04-22] MEDS ORDERED: BENZONATATE 100 MG CAP PO ONE (02:19)
== END 2021-04-22 02:30 | disposition home or self-care (01) ==
LOC: ED 23:08
DX: J06.9 Acute upper respiratory infection, unspecified (principal); R05 Cough; K75.9 Inflammatory liver disease, unspecified; F41.8 Other specified anxiety disorders; Z98.890 Other specified postprocedural states; Z88.0 Allergy status to penicillin
CPT/HCPCS: 99282

== ENCOUNTER 2021-10-17 23:56 | Emergency (ER) | payer MEDICARE ==
[2021-10-18 00:49] VITALS: BP 129/80
[2021-10-18 02:22] LABS: Basophils # (Auto) 0.1 K/mm3 (0.0-0.1); Basophils % (Auto) 1.2 % (0.0-1.8); Eosinophils # (Auto) 0.1 K/mm3 (0.0-0.4); Eosinophils % (Auto) 0.8 % (0.0-4.3); Hematocrit 38.4 % (30.3-42.9); Hemoglobin 12.5 gm/dl (10.1-14.3); Lymphocytes # (Auto) 2.7 K/mm3 (1.2-5.4); Lymphocytes % (Auto) 37.9 % (13.4-35.0); Mean Corpuscular HGB Conc 33 % (30-34); Mean Corpuscular Volume 77 fl (79-97); Monocytes # (Auto) 0.5 K/mm3 (0.0-0.8); Monocytes % (Auto) 7.2 % (0.0-7.3); Platelet Count 359 K/mm3 (140-440); Red Blood Count 4.96 M/mm3 (3.65-5.03); Red Cell Distribution Width 15.9 % (13.2-15.2)
[2021-10-18] MEDS ORDERED: SODIUM CHLORIDE 0.9% 1000 ML 1,000 ML IV ONE (02:25)
[2021-10-18] MEDS ORDERED: PANTOPRAZOLE 40 MG INJ IV ONE (02:26)
[2021-10-18] MEDS ORDERED: ONDANSETRON 4 MG/2 ML INJ IV ONE (02:26)
[2021-10-18] MEDS ORDERED: MORPHINE 4 MG/1 ML INJ IV ONE (02:27)
[2021-10-18 02:28] LABS: Alanine Aminotransferase 14 units/L (7-56); Albumin 4.2 g/dL (3.9-5); BUN/Creatinine Ratio 15; Blood Urea Nitrogen 15 mg/dL (7-17); Calcium 9.4 mg/dL (8.4-10.2); Hemolysis Index 3
--- NOTE | 2021-10-18 02:31 | Emergency Department Report ---
ED General Adult HPI - General Chief complaint: Abdominal Pain Stated complaint: SEVERE VOMITING/ABD PAIN Time Seen by Provider: 10/18/21 01:52 Source: patient Mode of arrival: Ambulatory Limitations: No Limitations - History of Present Illness Initial comments: 41-year-old female patient presents with complaints of abdominal pain and vomiting x2 days and body aches and tactile fever x1 week. She reports she is fully vaccinated against COVID-19 and had a negative PCR test performed 4 days ago. She denies any hematemesis/coffee-ground emesis, diarrhea, constipation, melena/hematochezia, or dysuria/hematuria/urinary frequency/vaginal discharge/dyspareunia/vaginal bleeding. Patient states she is not suspicious for an STI. She rates her current abdominal pain is 8/10 in severity. Past medical history includes GERD for which she takes 2 antacids for. She also reports she had an endoscopy performed in August that just showed stomach inflammation. She is currently following with a GI specialist and has an appointment later on today. NKDA per patient - Related Data Home Medications Medication Instructions Recorded Confirmed Last Taken Albuterol Sulfate [Ventolin HFA] 2 puff IH Q4H PRN 11/11/13 11/11/13 Unknown Amitriptyline [Elavil] 50 mg PO QHS 11/11/13 11/11/13 Unknown Citalopram Hydrobromide [Celexa] 40 mg PO QDAY 11/11/13 11/11/13 Unknown Previous Rx's Medication Instructions Recorded Last Taken Type Albuterol Sulfate [Ventolin HFA] 2 puff IH Q4H PRN #1 hfa.aer.ad 11/11/13 Unknown Rx Azithromycin [Zithromax Z-KAYDEN] 250 mg PO DAILY #6 tablet 11/11/13 Unknown Rx Promethazine Dm (Nf) [Phenergan DM 5 ml PO Q6H PRN #120 ml 11/11/13 Unknown Rx 6.25-15 mg/5 ml] HYDROcodone/APAP 5-325 [Joshua 1 each PO Q6HR PRN #10 tablet 05/18/14 Unknown Rx 5/325] Ibuprofen [Motrin] 800 mg PO Q8HR PRN #20 tablet 07/31/16 Unknown Rx HYDROcodone/APAP 5-325 [Joshua 1 each PO Q6HR PRN #10 tablet 11/11/16 Unknown Rx 5/325] Omeprazole 20 mg PO BID 30 Days #60 tablet.dr 02/01/18 Unknown Rx Ondansetron [Zofran Odt] 4 mg PO Q8H PRN #12 tab.rapdis 02/01/18 Unknown Rx Cyclobenzaprine [Flexeril] 10 mg PO QHS PRN #10 tablet 04/29/18 Unknown Rx Ibuprofen [Motrin] 600 mg PO Q8H PRN #30 tablet 04/29/18 Unknown Rx Benzonatate [Tessalon Perles] 100 mg PO Q8HR PRN #14 capsule 07/09/19 Unknown Rx Cetirizine HCl [Zyrtec 10mg tab] 10 mg PO DAILY #14 tablet 07/09/19 Unknown Rx Fluticasone [Flonase] 1 spray NS QDAY #1 bottle 07/09/19 Unknown Rx Oseltamivir [Tamiflu] 75 mg PO BID 5 Days #10 cap 07/09/19 Unknown Rx Doxycycline Hyclate [Doxycycline 100 mg PO Q12HR 10 Days #20 tab 09/13/19 Unknown Rx Hyclate TAB] methylPREDNISolone [Medrol 4MG 4 mg PO DAILY 6 Days #1 tab.ds.pk 09/13/19 Unknown Rx DOSEPAK (21 tabs)] Acetaminophen/Codeine [Tylenol 1 tab PO Q8H PRN #8 tab 02/22/20 Unknown Rx /Codeine # 3 tab] Ibuprofen [Motrin 800 MG tab] 800 mg PO Q8HR PRN #21 tablet 02/22/20 Unknown Rx Ondansetron [Zofran Odt] 4 mg PO Q8HR PRN #15 tab.rapdis 02/22/20 Unknown Rx Ondansetron [Zofran Odt] 4 mg PO Q8HR PRN #12 tab.rapdis 03/17/20 Unknown Rx Ondansetron [Zofran Odt] 4 mg PO Q6HR PRN #20 tab.rapdis 04/04/20 Unknown Rx Acetaminophen [Acetaminophen 8 650 mg PO Q8H PRN #12 tablet.er 04/15/21 Unknown Rx Hour] Dicyclomine [Bentyl] 20 mg PO Q12H PRN #12 tablet 04/15/21 Unknown Rx Ondansetron [Zofran Odt] 4 mg PO Q12H PRN #12 tab.rapdis 04/15/21 Unknown Rx Benzonatate [Tessalon Perles] 200 mg PO Q8HR #30 capsule 09/04/21 Unknown Rx Ibuprofen [Motrin 600 MG tab] 600 mg PO Q8H PRN #30 tablet 09/04/21 Unknown Rx predniSONE [Deltasone] 20 mg PO BID #10 tab 09/04/21 Unknown Rx Azithromycin [Zithromax Z-KAYDEN] 0 mg PO DAILY #6 tab 10/18/21 Unknown Rx Promethazine HCl [Promethazine TAB] 12.5 - 25 mg PO Q8H PRN 10 Days 10/18/21 Unknown Rx #20 tab Sucralfate [Carafate] 1 gm PO QID 10 Days #40 tablet 10/18/21 Unknown Rx Allergies Allergy/AdvReac Type Severity Reaction Status Date / Time Penicillins Allergy Hives Verified 10/18/21 00:49 ED Review of Systems ROS: Stated complaint: SEVERE VOMITING/ABD PAIN Other details as noted in HPI Constitutional: chills, fever, malaise, weakness. denies: diaphoresis ENT: denies: throat pain Respiratory: cough (Denies hemoptysis). denies: shortness of breath Cardiovascular: denies: chest pain Gastrointestinal: as per HPI Genitourinary: as per HPI Skin: denies: rash, lesions, change in color Neurological: denies: headache Hematological/Lymphatic: denies: swollen glands ED Past Medical Hx - Past Medical History Hx Psychiatric Treatment: Yes (PTSD, Anxiety, Depression) Additional medical history: hepatitis B, OVARIAN CYSTS. bronchitis - Surgical History Additional Surgical History: tubal ligation 2001, TONSILECTOMY. PVD WITH STENTS IN LEGS - Social History Smoking Status: Never Smoker Substance Use Type: None - Medications Home Medications: Home Medications Medication Instructions Recorded Confirmed Last Taken Type Albuterol Sulfate [Ventolin HFA] 2 puff IH Q4H PRN 11/11/13 11/11/13 Unknown History Albuterol Sulfate [Ventolin HFA] 2 puff IH Q4H PRN #1 hfa.aer.ad 11/11/13 Unknown Rx Amitriptyline [Elavil] 50 mg PO QHS 11/11/13 11/11/13 Unknown History Azithromycin [Zithromax Z-KAYDEN] 250 mg PO DAILY #6 tablet 11/11/13 Unknown Rx Citalopram Hydrobromide [Celexa] 40 mg PO QDAY 11/11/13 11/11/13 Unknown History Promethazine Dm (Nf) [Phenergan DM 5 ml PO Q6H PRN #120 ml 11/11/13 Unknown Rx 6.25-15 mg/5 ml] HYDROcodone/APAP 5-325 [Joshua 1 each PO Q6HR PRN #10 tablet 05/18/14 Unknown Rx 5/325] Ibuprofen [Motrin] 800 mg PO Q8HR PRN #20 tablet 07/31/16 Unknown Rx HYDROcodone/APAP 5-325 [Joshua 1 each PO Q6HR PRN #10 tablet 11/11/16 Unknown Rx 5/325] Omeprazole 20 mg PO BID 30 Days #60 tablet. 02/01/18 Unknown Rx Ondansetron [Zofran Odt] 4 mg PO Q8H PRN #12 tab.rapdis 02/01/18 Unknown Rx Cyclobenzaprine [Flexeril] 10 mg PO QHS PRN #10 tablet 04/29/18 Unknown Rx Ibuprofen [Motrin] 600 mg PO Q8H PRN #30 tablet 04/29/18 Unknown Rx Benzonatate [Tessalon Perles] 100 mg PO Q8HR PRN #14 capsule 07/09/19 Unknown Rx Cetirizine HCl [Zyrtec 10mg tab] 10 mg PO DAILY #14 tablet 07/09/19 Unknown Rx Fluticasone [Flonase] 1 spray NS QDAY #1 bottle 07/09/19 Unknown Rx Oseltamivir [Tamiflu] 75 mg PO BID 5 Days #10 cap 07/09/19 Unknown Rx Doxycycline Hyclate [Doxycycline 100 mg PO Q12HR 10 Days #20 tab 09/13/19 Unknown Rx Hyclate TAB] methylPREDNISolone [Medrol 4MG 4 mg PO DAILY 6 Days #1 tab.ds.pk 09/13/19 Unknown Rx DOSEPAK (21 tabs)] Acetaminophen/Codeine [Tylenol 1 tab PO Q8H PRN #8 tab 02/22/20 Unknown Rx /Codeine # 3 tab] Ibuprofen [Motrin 800 MG tab] 800 mg PO Q8HR PRN #21 tablet 02/22/20 Unknown Rx Ondansetron [Zofran Odt] 4 mg PO Q8HR PRN #15 tab.rapdis 02/22/20 Unknown Rx Ondansetron [Zofran Odt] 4 mg PO Q8HR PRN #12 tab.rapdis 03/17/20 Unknown Rx Ondansetron [Zofran Odt] 4 mg PO Q6HR PRN #20 tab.rapdis 04/04/20 Unknown Rx Acetaminophen [Acetaminophen 8 650 mg PO Q8H PRN #12 tablet.er 04/15/21 Unknown Rx Hour] Dicyclomine [Bentyl] 20 mg PO Q12H PRN #12 tablet 04/15/21 Unknown Rx Ondansetron [Zofran Odt] 4 mg PO Q12H PRN #12 tab.rapdis 04/15/21 Unknown Rx Benzonatate [Tessalon Perles] 200 mg PO Q8HR #30 capsule 09/04/21 Unknown Rx Ibuprofen [Motrin 600 MG tab] 600 mg PO Q8H PRN #30 tablet 09/04/21 Unknown Rx predniSONE [Deltasone] 20 mg PO BID #10 tab 09/04/21 Unknown Rx Azithromycin [Zithromax Z-KAYDEN] 0 mg PO DAILY #6 tab 10/18/21 Unknown Rx Promethazine HCl [Promethazine TAB] 12.5 - 25 mg PO Q8H PRN 10 Days 10/18/21 Unknown Rx #20 tab Sucralfate [Carafate] 1 gm PO QID 10 Days #40 tablet 10/18/21 Unknown Rx ED Physical Exam - General Limitations: No Limitations General appearance: alert, in no apparent distress - Head Head exam: Present: atraumatic, normocephalic - Eye Eye exam: Present: normal appearance. Absent: scleral icterus - Neck Neck exam: Present: normal inspection - Respiratory Respiratory exam: Present: rhonchi (Left mid/lower lung lobe). Absent: respiratory distress, wheezes, stridor - Cardiovascular Cardiovascular Exam: Present: regular rate, normal rhythm. Absent: systolic murmur, diastolic murmur, rubs, gallop - GI/Abdominal GI/Abdominal exam: Present: soft, tenderness (Suprapubic, periumbilical). Absent: distended, guarding, rebound, rigid - Back Exam Back exam: Present: full ROM. Absent: CVA tenderness (R), CVA tenderness (L) - Neurological Exam Neurological exam: Present: alert, oriented X3, normal gait - Psychiatric Psychiatric exam: Present: normal affect, normal mood - Skin Skin exam: Present: warm, dry, intact, normal color. Absent: rash ED Course Vital Signs 10/18/21 10/18/21 00:46 06:40 Temperature 98.5 F Pulse Rate 117 H 96 H Respiratory 17 20 Rate Blood Pressure 129/80 [Left] O2 Sat by Pulse 99 100 Oximetry ED Medical Decision Making - Lab Data Result diagrams: 10/18/21 01:47 10/18/21 01:47 - Radiology Data Radiology results: report reviewed CHEST 2 VIEWS INDICATION / CLINICAL INFORMATION: cough. COMPARISON: 09/04/2021 FINDINGS: SUPPORT DEVICES: None. HEART / MEDIASTINUM: No significant abnormality. LUNGS / PLEURA: Mild interstitial prominence within the lungs without focal consolidation No pneumothorax. CT ABDOMEN AND PELVIS WITH CONTRAST HISTORY: Pt complains of Epigastric, Mid Lower abdominal pain. COMPARISON: The 2020 TECHNIQUE: CT images of the abdomen and pelvis were obtained following administration of intravenous contrast. All CT scans at this location are performed using CT dose reduction for ALARA by means of automated exposure control. CONTRAST: 100 ml of intravenous contrast administered. FINDINGS: Lungs/bones: Lung bases are normal Abdomen/pelvis: There is diffuse fatty infiltration of the liver. Otherwise the liver, spleen, adrenal glands, pancreas, gallbladder and upper GI tract appear normal. Bilateral kidneys appear normal. Appendix is not well seen. No focal inflammatory change in the bowel loops. No obstruction is identified. Uterus is heterogeneous. Small adnexal cyst are noted. IMPRESSION: 1. No acute findings. - Medical Decision Making 41-year-old female patient presents with complaints of abdominal pain and vomiting x2 days and body aches and tactile fever x1 week. She reports she is fully vaccinated against COVID-19 and had a negative PCR test performed 4 days ago. She denies any hematemesis/coffee-ground emesis, diarrhea, constipation, melena/hematochezia, or dysuria/hematuria/urinary frequency/vaginal discharge/dyspareunia/vaginal bleeding. Patient states she is not suspicious for an STI. She rates her current abdominal pain is 8/10 in severity. Past medical history includes GERD for which she takes 2 antacids for. She also reports she had an endoscopy performed in August that just showed stomach inflammation. She is currently following with a GI specialist and has an appointment later on today. NKDA per patient No acute abnormalities noted on CT abdomen. X-ray shows mild interstitial prominence. On exam patient does have rhonchi noted to the left middle and lower lung lobes. Labs are without acute findings. Vitals are normal and patient is well-appearing. She is stable for discharge home. We will treat for acute bacterial bronchitis with Z-Kayden. Recommend follow-up with GI specialist as scheduled today and primary care doctor within 3 to 5 days. Strict return precautions were discussed in detail with patient who verbalizes understanding. Critical care attestation.: If time is entered above; I have spent that time in minutes in the direct care of this critically ill patient, excluding procedure time. ED Disposition Clinical Impression: Nausea & vomiting, Lower resp. tract infection Disposition: HOME / SELF CARE / HOMELESS Is pt being admited?: No Condition: Stable Instructions: Nausea and Vomiting, Adult, [id number], Acute Bronchitis, Adult, Abdominal Pain (ED) Prescriptions: Sucralfate [Carafate] 1 gm PO QID 10 Days #40 tablet Promethazine HCl [Promethazine TAB] 12.5 - 25 mg PO Q8H PRN 10 Days #20 tab PRN Reason: Nausea Azithromycin [Zithromax Z-KAYDEN] 0 mg PO DAILY #6 tab Referrals: PRIMARY CARE, [Primary Care Provider] - 3-5 Days Forms: Work/School Release Form(ED)
[2021-10-18 02:45] LABS: Bilirubin,Urine NEG (Negative); Blood,Urine NEG (Negative); Color,Urine Yellow (Yellow); RBC,Urine < 1.0 /HPF (0.0-6.0); Urobilinogen,Urine < 2.0 mg/dL (<2.0); WBC,Urine < 1.0 /HPF (0.0-6.0)
--- NOTE | 2021-10-18 03:04 | XRay Report ---
CHEST 2 VIEWS INDICATION / CLINICAL INFORMATION: cough. COMPARISON: 09/04/2021 FINDINGS: SUPPORT DEVICES: None. HEART / MEDIASTINUM: No significant abnormality. LUNGS / PLEURA: Mild interstitial prominence within the lungs without focal consolidation No pneumoth orax. Signer Name: Aramis Rascon MD Signed: 10/18/2021 2:59 AM Workstation Name: [id number]
--- NOTE | 2021-10-18 05:06 | Cat Scan Report ---
CT ABDOMEN AND PELVIS WITH CONTRAST HISTORY: Pt complains of Epigastric, Mid Lower abdominal pain. COMPARISON: The 2020 TECHNIQUE: CT images of the abdomen and pelvis were obtained following administration of intravenous contrast. All CT scans at this location are performed using CT dose reduction for ALARA by means of automated exposure control. CONTRAST: 100 ml of intravenous contrast administered. FINDINGS: Lungs/bones: Lung bases are normal Abdomen/pelvis: There is diffuse fatty infiltration of the liver. Otherwise the liver, spleen, adren al glands, pancreas, gallbladder and upper GI tract appear normal. Bilateral kidneys appear normal. A ppendix is not well seen. No focal inflammatory change in the bowel loops. No obstruction is identifi ed. Uterus is heterogeneous. Small adnexal cyst are noted. IMPRESSION: 1. No acute findings. Signer Name: Aramis Rascon MD Signed: 10/18/2021 5:02 AM Workstation Name: [id number]
[2021-10-18] MEDS ORDERED: POTASSIUM CHLORIDE ER 20 MEQ TAB PO ONE (05:28)
== END 2021-10-18 06:40 | disposition home or self-care (01) ==
LOC: ED 23:56
DX: R11.2 Nausea with vomiting, unspecified (principal); J22 Unspecified acute lower respiratory infection; Z98.51 Tubal ligation status; Z90.89 Acquired absence of other organs; Z98.890 Other specified postprocedural states; Z88.0 Allergy status to penicillin
CPT/HCPCS: 36415; 71046; 74177; 80053; 81001; 83690; 84703; 85025; 96361; 96374; 96375; 99284; C9113; J2270; J2405; J7030; Q9967; Q0162

== ENCOUNTER 2022-04-08 00:20 | Emergency (ER) | payer MEDICARE ==
--- NOTE | 2022-04-08 08:34 | Emergency Department Report ---
ED Abdominal Pain HPI - General Chief Complaint: Abdominal Pain Stated Complaint: PAIN IN LOWER STOMACH Source: patient Mode of arrival: Ambulatory Limitations: No Limitations - History of Present Illness Initial Comments: 41-year-old female presents to the ED complaining of pelvic pain x3 days. Patient states that last menstrual cycle was 3 days ago. She states that she has a history of a right ovarian cyst. Patient is alert and oriented x3. She denies any nausea or vomiting,vaginal discharge ,fever or chills at present time. Patient states that she often gets this pain during her menstrual cycle but this time the pain was worse. Patient states that pain was a current 8 out of 10 but at present time pain is only a 2 out of 10. 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 No acute distress noted no ill appearance noted. Severity scale (0 -10): 2 Worsens With: nothing - Related Data Home Medications Medication Instructions Recorded Confirmed Last Taken Albuterol Sulfate [Ventolin HFA] 2 puff IH Q4H PRN 11/11/13 11/11/13 Unknown Amitriptyline [Elavil] 50 mg PO QHS 11/11/13 11/11/13 Unknown Citalopram Hydrobromide [Celexa] 40 mg PO QDAY 11/11/13 11/11/13 Unknown Previous Rx's Medication Instructions Recorded Last Taken Type Albuterol Sulfate [Ventolin HFA] 2 puff IH Q4H PRN #1 hfa.aer.ad 11/11/13 Unknown Rx Azithromycin [Zithromax Z-KAYDEN] 250 mg PO DAILY #6 tablet 11/11/13 Unknown Rx Promethazine Dm (Nf) [Phenergan DM 5 ml PO Q6H PRN #120 ml 11/11/13 Unknown Rx 6.25-15 mg/5 ml] HYDROcodone/APAP 5-325 [Platinum 1 each PO Q6HR PRN #10 tablet 05/18/14 Unknown Rx 5/325] Ibuprofen [Motrin] 800 mg PO Q8HR PRN #20 tablet 07/31/16 Unknown Rx HYDROcodone/APAP 5-325 [Platinum 1 each PO Q6HR PRN #10 tablet 11/11/16 Unknown Rx 5/325] Omeprazole 20 mg PO BID 30 Days #60 tablet. 02/01/18 Unknown Rx Ondansetron [Zofran Odt] 4 mg PO Q8H PRN #12 tab.rapdis 02/01/18 Unknown Rx Cyclobenzaprine [Flexeril] 10 mg PO QHS PRN #10 tablet 04/29/18 Unknown Rx Ibuprofen [Motrin] 600 mg PO Q8H PRN #30 tablet 04/29/18 Unknown Rx Benzonatate [Tessalon Perles] 100 mg PO Q8HR PRN #14 capsule 07/09/19 Unknown Rx Cetirizine HCl [Zyrtec 10mg tab] 10 mg PO DAILY #14 tablet 07/09/19 Unknown Rx Fluticasone [Flonase] 1 spray NS QDAY #1 bottle 07/09/19 Unknown Rx Oseltamivir [Tamiflu] 75 mg PO BID 5 Days #10 cap 07/09/19 Unknown Rx Doxycycline Hyclate [Doxycycline 100 mg PO Q12HR 10 Days #20 tab 09/13/19 Unknown Rx Hyclate TAB] methylPREDNISolone [Medrol 4MG 4 mg PO DAILY 6 Days #1 tab.ds.pk 09/13/19 Unknown Rx DOSEPAK (21 tabs)] Acetaminophen/Codeine [Tylenol 1 tab PO Q8H PRN #8 tab 02/22/20 Unknown Rx /Codeine # 3 tab] Ibuprofen [Motrin 800 MG tab] 800 mg PO Q8HR PRN #21 tablet 02/22/20 Unknown Rx Ondansetron [Zofran Odt] 4 mg PO Q8HR PRN #15 tab.rapdis 02/22/20 Unknown Rx Ondansetron [Zofran Odt] 4 mg PO Q8HR PRN #12 tab.rapdis 03/17/20 Unknown Rx Ondansetron [Zofran Odt] 4 mg PO Q6HR PRN #20 tab.rapdis 04/04/20 Unknown Rx Acetaminophen [Acetaminophen 8 650 mg PO Q8H PRN #12 tablet.er 04/15/21 Unknown Rx Hour] Dicyclomine [Bentyl] 20 mg PO Q12H PRN #12 tablet 04/15/21 Unknown Rx Ondansetron [Zofran Odt] 4 mg PO Q12H PRN #12 tab.rapdis 04/15/21 Unknown Rx Benzonatate [Tessalon Perles] 200 mg PO Q8HR #30 capsule 09/04/21 Unknown Rx Ibuprofen [Motrin 600 MG tab] 600 mg PO Q8H PRN #30 tablet 09/04/21 Unknown Rx predniSONE [Deltasone] 20 mg PO BID #10 tab 09/04/21 Unknown Rx Azithromycin [Zithromax Z-KAYDEN] 0 mg PO DAILY #6 tab 10/18/21 Unknown Rx Promethazine HCl [Promethazine TAB] 12.5 - 25 mg PO Q8H PRN 10 Days 10/18/21 Unknown Rx #20 tab Sucralfate [Carafate] 1 gm PO QID 10 Days #40 tablet 10/18/21 Unknown Rx Dicyclomine [Bentyl] 20 mg PO QID 5 Days #20 tablet 04/08/22 Unknown Rx Naproxen [Naprosyn] 500 mg PO BID 15 Days #30 tablet 04/08/22 Unknown Rx Nitrofurantoin Trigg/M-Cryst 100 mg PO Q12HR 10 Days #20 capsule 04/08/22 Unknown Rx [Macrobid CAP] Allergies Allergy/AdvReac Type Severity Reaction Status Date / Time Penicillins Allergy Hives Verified 10/18/21 00:49 ED Review of Systems ROS: Stated complaint: PAIN IN LOWER STOMACH Other details as noted in HPI Constitutional: denies: chills, fever Eyes: denies: eye pain, eye discharge, vision change ENT: denies: ear pain, throat pain Respiratory: denies: cough, shortness of breath, wheezing Cardiovascular: denies: chest pain, palpitations Endocrine: no symptoms reported Gastrointestinal: denies: abdominal pain, nausea, diarrhea Genitourinary: denies: urgency, dysuria, discharge Musculoskeletal: denies: back pain, joint swelling, arthralgia Skin: denies: rash, lesions Neurological: denies: headache, weakness, paresthesias Psychiatric: denies: anxiety, depression Hematological/Lymphatic: denies: easy bleeding, easy bruising ED Past Medical Hx - Past Medical History Hx Psychiatric Treatment: Yes (PTSD, Anxiety, Depression) Additional medical history: hepatitis B, OVARIAN CYSTS. bronchitis - Surgical History Additional Surgical History: tubal ligation 2001, TONSILECTOMY. PVD WITH STENTS IN LEGS - Social History Smoking Status: Never Smoker Substance Use Type: None - Medications Home Medications: Home Medications Medication Instructions Recorded Confirmed Last Taken Type Albuterol Sulfate [Ventolin HFA] 2 puff IH Q4H PRN 11/11/13 11/11/13 Unknown History Albuterol Sulfate [Ventolin HFA] 2 puff IH Q4H PRN #1 hfa.aer.ad 11/11/13 Unknown Rx Amitriptyline [Elavil] 50 mg PO QHS 11/11/13 11/11/13 Unknown History Azithromycin [Zithromax Z-KAYDEN] 250 mg PO DAILY #6 tablet 11/11/13 Unknown Rx Citalopram Hydrobromide [Celexa] 40 mg PO QDAY 11/11/13 11/11/13 Unknown History Promethazine Dm (Nf) [Phenergan DM 5 ml PO Q6H PRN #120 ml 11/11/13 Unknown Rx 6.25-15 mg/5 ml] HYDROcodone/APAP 5-325 [Platinum 1 each PO Q6HR PRN #10 tablet 05/18/14 Unknown Rx 5/325] Ibuprofen [Motrin] 800 mg PO Q8HR PRN #20 tablet 07/31/16 Unknown Rx HYDROcodone/APAP 5-325 [Platinum 1 each PO Q6HR PRN #10 tablet 11/11/16 Unknown Rx 5/325] Omeprazole 20 mg PO BID 30 Days #60 tablet. 02/01/18 Unknown Rx Ondansetron [Zofran Odt] 4 mg PO Q8H PRN #12 tab.rapdis 02/01/18 Unknown Rx Cyclobenzaprine [Flexeril] 10 mg PO QHS PRN #10 tablet 04/29/18 Unknown Rx Ibuprofen [Motrin] 600 mg PO Q8H PRN #30 tablet 04/29/18 Unknown Rx Benzonatate [Tessalon Perles] 100 mg PO Q8HR PRN #14 capsule 07/09/19 Unknown Rx Cetirizine HCl [Zyrtec 10mg tab] 10 mg PO DAILY #14 tablet 07/09/19 Unknown Rx Fluticasone [Flonase] 1 spray NS QDAY #1 bottle 07/09/19 Unknown Rx Oseltamivir [Tamiflu] 75 mg PO BID 5 Days #10 cap 07/09/19 Unknown Rx Doxycycline Hyclate [Doxycycline 100 mg PO Q12HR 10 Days #20 tab 09/13/19 Unknown Rx Hyclate TAB] methylPREDNISolone [Medrol 4MG 4 mg PO DAILY 6 Days #1 tab.ds.pk 09/13/19 U nknown Rx DOSEPAK (21 tabs)] Acetaminophen/Codeine [Tylenol 1 tab PO Q8H PRN #8 tab 02/22/20 Unknown Rx /Codeine # 3 tab] Ibuprofen [Motrin 800 MG tab] 800 mg PO Q8HR PRN #21 tablet 02/22/20 Unknown Rx Ondansetron [Zofran Odt] 4 mg PO Q8HR PRN #15 tab.rapdis 02/22/20 Unknown Rx Ondansetron [Zofran Odt] 4 mg PO Q8HR PRN #12 tab.rapdis 03/17/20 Unknown Rx Ondansetron [Zofran Odt] 4 mg PO Q6HR PRN #20 tab.rapdis 04/04/20 Unknown Rx Acetaminophen [Acetaminophen 8 650 mg PO Q8H PRN #12 tablet.er 04/15/21 Unknown Rx Hour] Dicyclomine [Bentyl] 20 mg PO Q12H PRN #12 tablet 04/15/21 Unknown Rx Ondansetron [Zofran Odt] 4 mg PO Q12H PRN #12 tab.rapdis 04/15/21 Unknown Rx Benzonatate [Tessalon Perles] 200 mg PO Q8HR #30 capsule 09/04/21 Unknown Rx Ibuprofen [Motrin 600 MG tab] 600 mg PO Q8H PRN #30 tablet 09/04/21 Unknown Rx predniSONE [Deltasone] 20 mg PO BID #10 tab 09/04/21 Unknown Rx Azithromycin [Zithromax Z-KAYDEN] 0 mg PO DAILY #6 tab 10/18/21 Unknown Rx Promethazine HCl [Promethazine TAB] 12.5 - 25 mg PO Q8H PRN 10 Days 10/18/21 Unknown Rx #20 tab Sucralfate [Carafate] 1 gm PO QID 10 Days #40 tablet 10/18/21 Unknown Rx Dicyclomine [Bentyl] 20 mg PO QID 5 Days #20 tablet 04/08/22 Unknown Rx Naproxen [Naprosyn] 500 mg PO BID 15 Days #30 tablet 04/08/22 Unknown Rx Nitrofurantoin Trigg/M-Cryst 100 mg PO Q12HR 10 Days #20 capsule 04/08/22 Unknown Rx [Macrobid CAP] ED Physical Exam - General Limitations: No Limitations General appearance: alert, in no apparent distress - Head Head exam: Present: atraumatic, normocephalic - Eye Eye exam: Present: normal appearance - ENT ENT exam: Present: mucous membranes moist - Neck Neck exam: Present: normal inspection - Respiratory Respiratory exam: Present: normal lung sounds bilaterally. Absent: respiratory distress - Cardiovascular Cardiovascular Exam: Present: regular rate, normal rhythm. Absent: systolic murmur, diastolic murmur, rubs, gallop - GI/Abdominal GI/Abdominal exam: Present: soft, normal bowel sounds - Extremities Exam Extremities exam: Present: normal inspection - Back Exam Back exam: Present: normal inspection - Neurological Exam Neurological exam: Present: alert, oriented X3 - Psychiatric Psychiatric exam: Present: normal affect, normal mood - Skin Skin exam: Present: warm, dry, intact, normal color. Absent: rash ED Course Vital Signs 04/08/22 04/08/22 04/08/22 00:25 07:59 09:55 Temperature 99.1 F 97.9 F 98.0 F Pulse Rate 105 H 84 80 Respiratory 18 16 18 Rate Blood Pressure 119/75 Blood Pressure 100/67 110/70 [Right] O2 Sat by Pulse 94 100 100 Oximetry ED Medical Decision Making - Lab Data Result diagrams: 04/08/22 08:10 04/08/22 08:10 - Radiology Data [facility] [address] [place] [address] Ultrasound Report Signed Patient: ERIN ONOFRE MR#: [id number] : 1980 Acct:[id number] Age/Sex: 41 / F ADM Date: 04/08/22 Loc: ED Attending Dr: Ordering Physician: GUDELIA MIJARES Date of Service: 04/08/22 Procedure(s): US OB transvaginal Accession Number(s): [id number] cc: GUDELIA MIJARES PELVIC ULTRASOUND INDICATION: pelvis pain COMPARISON: CT abdomen and pelvis 10/18/2021 TECHNIQUE: Endovaginal FINDINGS: Uterus: Measures 8 x 4 x 6.1 cm. Endometrial stripe measures 5 mm. No fluid is seen within the endometrium. No evidence of intrauterine is detected. Small nabothian type cyst is seen in the cervical region. Right ovary: Measures 3 cm in length and shows small follicular-type cysts. Blood flow is noted. No adnexal masses. Left ovary: Measures 2.8 cm in length and shows small follicular-type cysts. Blood flow is noted. No adnexal masses. Free fluid: None IMPRESSION: No significant abnormalities are seen. I do not see evidence of int rauterine . If the patient has a positive test ectopic is not excluded though I do not see evidence of that process. Signer Name: Camilo Bruno MD Signed: 04/08/2022 8:54 AM Workstation Name: [id number] Transcribed By: GJ Dictated By: Camilo Bruno MD Electronically Authenticated By: Camilo Bruno MD Signed Date/Time: 04/08/22853 DD/ 0 - Medical Decision Making 41-year-old female presents to the ED complaining of pelvic pain x3 days. Patient states that last menstrual cycle was 3 days ago. She states that she has a history of a right ovarian cyst. Patient is alert and oriented x3. She denies any nausea or vomiting,vaginal discharge, fever or chills at present time. Patient states that she often gets this pain during her menstrual cycle but this time the pain was worse. Patient states that pain was a current 8 out of 10 but at present time pain is only a 2 out of 10. 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 No acute distress noted no ill appearance noted. Physical examination patient has some tenderness in the pelvis area. She states that when she gave urine she noticed some dysuria and was only able to give a small amount of urine. We will treat patient for acute urinary tract infection Rechecked the patient is resting quietly quietly and comfortable and feeling better. I discussed the results of diagnostic study, my clinical impression and the plan for further treatment with the patient. Patient agrees with plan and discharge at this present time. All question addressed. I have given the patient instruction regarding a diagnosis ,expectation ,follow- up and return precaution. I explained to the patient that emergent condition may arise and to return to the ED for new worsen and any new persisting condition. I have explained the importance of following up with the primary care physician or referral physician listed below has instructed. The patient verbalized understanding of discharge instruction. Abnormal Lab Results 04/08/22 04/08/22 04/08/22 08:10 08:10 08:10 WBC 9.8 RBC 5.46 H Hgb 13.9 Hct 42.7 MCV 78 L MCH 26 L MCHC 33 RDW 16.1 H Plt Count 389 Sodium 139 Potassium 3.4 L Chloride 97.4 L Carbon Dioxide 28 Anion Gap 17 BUN 12 Creatinine 0.9 Estimated GFR > 60 BUN/Creatinine Ratio 13 Glucose 98 Calcium 9.9 Total Bilirubin 0.30 AST 14 ALT 17 Alkaline Phosphatase 98 Total Protein 7.4 Albumin 4.6 Albumin/Globulin Ratio 1.6 Lipase 24 Urine Color Urine Turbidity Urine pH Ur Specific [place] Urine Protein Urine Glucose (UA) Urine Ketones Urine Blood Urine Nitrite Urine Bilirubin Urine Urobilinogen Ur Leukocyte Esterase Urine WBC (Auto) Urine RBC (Auto) U Epithel Cells (Auto) Urine Mucus Urine HCG, Qual 04/08/22 09:05 WBC RBC Hgb Hct MCV MCH MCHC RDW Plt Count Sodium Potassium Chloride Carbon Dioxide Anion Gap BUN Creatinine Estimated GFR BUN/Creatinine Ratio Glucose Calcium Total Bilirubin AST ALT Alkaline Phosphatase Total Protein Albumin Albumin/Globulin Ratio Lipase Urine Color Yellow Urine Turbidity Slightly-cloudy Urine pH 5.0 Ur Specific [place] 1.017 Urine Protein <15 mg/dl Urine Glucose (UA) Neg Urine Ketones Neg Urine Blood Mod Urine Nitrite Neg Urine Bilirubin Neg Urine Urobilinogen < 2.0 Ur Leukocyte Esterase Neg Urine WBC (Auto) 8.0 H Urine RBC (Auto) 3.0 U Epithel Cells (Auto) 20.0 H Urine Mucus Few Urine HCG, Qual Negative Critical care attestation.: If time is entered above; I have spent that time in minutes in the direct care of this critically ill patient, excluding procedure time. ED Disposition Clinical Impression: Acute urinary tract infection Ovarian cyst Qualifiers: Laterality: bilateral Qualified Code(s): N83.201 - Unspecified ovarian cyst, right side Disposition: 01 HOME / SELF CARE / HOMELESS Is pt being admited?: No Does the pt Need Aspirin: No Condition: Stable Instructions: Antibiotic Medicine, Adult, [id number], Urinary Tract Infection, Adult, Abdominal Pain (ED) Additional Instructions: Take medication as prescribed Return to ED for any worsening symptom Prescriptions: Dicyclomine [Bentyl] 20 mg PO QID 5 Days #20 tablet Nitrofurantoin Trigg/M-Cryst [Macrobid CAP] 100 mg PO Q12HR 10 Days #20 capsule Naproxen [Naprosyn] 500 mg PO BID 15 Days #30 tablet Referrals: [facility] [Provider Group] - 3-5 Days [facility] [Provider Group] - 3-5 Days Forms: Work/School Release Form(ED) Time of Disposition: 10:09
--- NOTE | 2022-04-08 08:59 | Ultrasound Report ---
PELVIC ULTRASOUND INDICATION: pelvis pain COMPARISON: CT abdomen and pelvis 10/18/2021 TECHNIQUE: Endovaginal FINDINGS: Uterus: Measures 8 x 4 x 6.1 cm. Endometrial stripe measures 5 mm. No fluid is seen within the endome trium. No evidence of intrauterine is detected. Small nabothian type cyst is seen in the ce rvical region. Right ovary: Measures 3 cm in length and shows small follicular-type cysts. Blood flow is noted. No a dnexal masses. Left ovary: Measures 2.8 cm in length and shows small follicular-type cysts. Blood flow is noted. No adnexal masses. Free fluid: None IMPRESSION: No significant abnormalities are seen. I do not see evidence of intrauterine . I f the patient has a positive test ectopic is not excluded though I do not see beny dence of that process. Signer Name: Camilo Bruno MD Signed: 04/08/2022 8:54 AM Workstation Name: [id number]
[2022-04-08 09:39] LABS: Hematocrit 42.7 % (30.3-42.9); Hemoglobin 13.9 gm/dl (10.1-14.3); Mean Corpuscular HGB Conc 33 % (30-34); Mean Corpuscular Volume 78 fl (79-97); Platelet Count 389 K/mm3 (140-440); Red Blood Count 5.46 M/mm3 (3.65-5.03); Red Cell Distribution Width 16.1 % (13.2-15.2)
[2022-04-08 09:46] LABS: Bilirubin,Urine NEG (Negative); Blood,Urine MOD (Negative); Color,Urine Yellow (Yellow); Protein,Urine <15 mg/dL mg/dL (Negative); Urobilinogen,Urine < 2.0 mg/dL (<2.0)
[2022-04-08 09:49] LABS: Mucus,Urine FEW /HPF
[2022-04-08 09:54] LABS: HCG Qualitative,Urine Negative (Negative)
[2022-04-08 09:57] VITALS: BP 110/70
[2022-04-08 10:02] LABS: Alanine Aminotransferase 17 units/L (7-56); Albumin 4.6 g/dL (3.9-5); BUN/Creatinine Ratio 13; Blood Urea Nitrogen 12 mg/dL (7-17); Calcium 9.9 mg/dL (8.4-10.2); Hemolysis Index 4
== END 2022-04-08 11:43 | disposition home or self-care (01) ==
LOC: ED 00:20
DX: N39.0 Urinary tract infection, site not specified (principal); N83.209 Unspecified ovarian cyst, unspecified side; Z88.0 Allergy status to penicillin; Z79.899 Other long term (current) drug therapy
CPT/HCPCS: 36415; 76817; 76830; 80053; 81001; 81025; 83690; 85027; 99284

== ENCOUNTER 2022-05-23 22:33 | Emergency (ER) | payer MEDICARE ==
[2022-05-23 22:59] VITALS: BP 120/73
[2022-05-24] MEDS ORDERED: ONDANSETRON 4 MG ODT TAB PO ONE (02:22)
[2022-05-24 02:59] LABS: Color,Urine Colorless (Yellow)
[2022-05-24 03:07] LABS: Bacteria,Urine 1+ /HPF (Negative); Mucus,Urine FEW /HPF; RBC,Urine < 1.0 /HPF (0.0-6.0)
[2022-05-24 03:14] LABS: Basophils # (Auto) 0.1 K/mm3 (0.0-0.1); Eosinophils # (Auto) 0.1 K/mm3 (0.0-0.4); Hematocrit 34.9 % (30.3-42.9); Hemoglobin 11.4 gm/dl (10.1-14.3); Lymphocytes # (Auto) 3.7 K/mm3 (1.2-5.4); Lymphocytes % (Auto) 39.7 % (13.4-35.0); Mean Corpuscular HGB Conc 33 % (30-34); Mean Corpuscular Volume 79 fl (79-97); Monocytes # (Auto) 0.8 K/mm3 (0.0-0.8); Monocytes % (Auto) 8.4 % (0.0-7.3); Platelet Count 324 K/mm3 (140-440); Red Blood Count 4.39 M/mm3 (3.65-5.03); Red Cell Distribution Width 15.8 % (13.2-15.2)
[2022-05-24 03:35] LABS: Alanine Aminotransferase 10 units/L (7-56); Albumin 4.1 g/dL (3.9-5); BUN/Creatinine Ratio 16; Blood Urea Nitrogen 13 mg/dL (7-17); Calcium 8.8 mg/dL (8.4-10.2); Hemolysis Index 10
--- NOTE | 2022-05-24 03:37 | Emergency Department Report ---
ED N/V/D HPI - General Chief complaint: Nausea/Vomiting/Diarrhea Stated complaint: DIARRHEA/NAUSEA.VOMITING Time Seen by Provider: 05/24/22 02:25 Source: patient Mode of arrival: Ambulatory Limitations: No Limitations - History of Present Illness Initial comments: Patient 41-year-old female who presents with nausea vomiting diarrhea x2 days. Patient states she cannot recall suspicious food intake. Described pain as bilateral aching and cramping patient with current menses. There is no fevers or chills. Patient is tolerating p.o. intake at this time. There is no fever or chills. MD complaint: nausea, vomiting, diarrhea - Related Data Home Medications Medication Instructions Recorded Confirmed Last Taken Albuterol Sulfate [Ventolin HFA] 2 puff IH Q4H PRN 11/11/13 11/11/13 Unknown Amitriptyline [Elavil] 50 mg PO QHS 11/11/13 11/11/13 Unknown Citalopram Hydrobromide [Celexa] 40 mg PO QDAY 11/11/13 11/11/13 Unknown Previous Rx's Medication Instructions Recorded Last Taken Type Albuterol Sulfate [Ventolin HFA] 2 puff IH Q4H PRN #1 hfa.aer.ad 11/11/13 Unknown Rx Azithromycin [Zithromax Z-KAYDEN] 250 mg PO DAILY #6 tablet 11/11/13 Unknown Rx Promethazine Dm (Nf) [Phenergan DM 5 ml PO Q6H PRN #120 ml 11/11/13 Unknown Rx 6.25-15 mg/5 ml] HYDROcodone/APAP 5-325 [[place] 1 each PO Q6HR PRN #10 tablet 05/18/14 Unknown Rx 5/325] Ibuprofen [Motrin] 800 mg PO Q8HR PRN #20 tablet 07/31/16 Unknown Rx HYDROcodone/APAP 5-325 [[place] 1 each PO Q6HR PRN #10 tablet 11/11/16 Unknown Rx 5/325] Omeprazole 20 mg PO BID 30 Days #60 tablet. 02/01/18 Unknown Rx Ondansetron [Zofran Odt] 4 mg PO Q8H PRN #12 tab.rapdis 02/01/18 Unknown Rx Cyclobenzaprine [Flexeril] 10 mg PO QHS PRN #10 tablet 04/29/18 Unknown Rx Ibuprofen [Motrin] 600 mg PO Q8H PRN #30 tablet 04/29/18 Unknown Rx Benzonatate [Tessalon Perles] 100 mg PO Q8HR PRN #14 capsule 07/09/19 Unknown Rx Cetirizine HCl [Zyrtec 10mg tab] 10 mg PO DAILY #14 tablet 07/09/19 Unknown Rx Fluticasone [Flonase] 1 spray NS QDAY #1 bottle 07/09/19 Unknown Rx Oseltamivir [Tamiflu] 75 mg PO BID 5 Days #10 cap 07/09/19 Unknown Rx Doxycycline Hyclate [Doxycycline 100 mg PO Q12HR 10 Days #20 tab 09/13/19 Unknown Rx Hyclate TAB] methylPREDNISolone [Medrol 4MG 4 mg PO DAILY 6 Days #1 tab.ds.pk 09/13/19 Unknown Rx DOSEPAK (21 tabs)] Acetaminophen/Codeine [Tylenol 1 tab PO Q8H PRN #8 tab 02/22/20 Unknown Rx /Codeine # 3 tab] Ibuprofen [Motrin 800 MG tab] 800 mg PO Q8HR PRN #21 tablet 02/22/20 Unknown Rx Ondansetron [Zofran Odt] 4 mg PO Q8HR PRN #15 tab.rapdis 02/22/20 Unknown Rx Ondansetron [Zofran Odt] 4 mg PO Q8HR PRN #12 tab.rapdis 03/17/20 Unknown Rx Ondansetron [Zofran Odt] 4 mg PO Q6HR PRN #20 tab.rapdis 04/04/20 Unknown Rx Acetaminophen [Acetaminophen 8 650 mg PO Q8H PRN #12 tablet.er 04/15/21 Unknown Rx Hour] Dicyclomine [Bentyl] 20 mg PO Q12H PRN #12 tablet 04/15/21 Unknown Rx Ondansetron [Zofran Odt] 4 mg PO Q12H PRN #12 tab.rapdis 04/15/21 Unknown Rx Benzonatate [Tessalon Perles] 200 mg PO Q8HR #30 capsule 09/04/21 Unknown Rx Ibuprofen [Motrin 600 MG tab] 600 mg PO Q8H PRN #30 tablet 09/04/21 Unknown Rx predniSONE [Deltasone] 20 mg PO BID #10 tab 09/04/21 Unknown Rx Azithromycin [Zithromax Z-KAYDEN] 0 mg PO DAILY #6 tab 10/18/21 Unknown Rx Promethazine HCl [Promethazine TAB] 12.5 - 25 mg PO Q8H PRN 10 Days 10/18/21 Unknown Rx #20 tab Sucralfate [Carafate] 1 gm PO QID 10 Days #40 tablet 10/18/21 Unknown Rx Dicyclomine [Bentyl] 20 mg PO QID 5 Days #20 tablet 04/08/22 Unknown Rx Naproxen [Naprosyn] 500 mg PO BID 15 Days #30 tablet 04/08/22 Unknown Rx Nitrofurantoin [place]/M-Cryst 100 mg PO Q12HR 10 Days #20 capsule 04/08/22 Unknown Rx [Macrobid CAP] Dicyclomine [Bentyl] 10 mg PO QID PRN #15 capsule 05/24/22 Unknown Rx Magnesium Citrate [Citrate of 296 ml PO ONCE PRN #1 bottle 05/24/22 Unknown Rx Magnesia] Ondansetron [Zofran Odt] 4 mg PO Q8HR #12 tab.rapdis 05/24/22 Unknown Rx bisacodyL [Dulcolax suppos] 10 mg [place] ONCE #3 supp.rect 05/24/22 Unknown Rx Allergies Allergy/AdvReac Type Severity Reaction Status Date / Time Penicillins Allergy Hives Verified 10/18/21 00:49 ED Review of Systems ROS: Stated complaint: DIARRHEA/NAUSEA.VOMITING Other details as noted in HPI ED Past Medical Hx - Past Medical History Hx Psychiatric Treatment: Yes (PTSD, Anxiety, Depression) Additional medical history: hepatitis B, OVARIAN CYSTS. bronchitis - Surgical History Additional Surgical History: tubal ligation 2001, TONSILECTOMY. PVD WITH STENTS IN LEGS - Social History Smoking Status: Never Smoker Substance Use Type: None - Medications Home Medications: Home Medications Medication Instructions Recorded Confirmed Last Taken Type Albuterol Sulfate [Ventolin HFA] 2 puff IH Q4H PRN 11/11/13 11/11/13 Unknown History Albuterol Sulfate [Ventolin HFA] 2 puff IH Q4H PRN #1 hfa.aer.ad 11/11/13 Unknown Rx Amitriptyline [Elavil] 50 mg PO QHS 11/11/13 11/11/13 Unknown History Azithromycin [Zithromax Z-KAYDEN] 250 mg PO DAILY #6 tablet 11/11/13 Unknown Rx Citalopram Hydrobromide [Celexa] 40 mg PO QDAY 11/11/13 11/11/13 Unknown History Promethazine Dm (Nf) [Phenergan DM 5 ml PO Q6H PRN #120 ml 11/11/13 Unknown Rx 6.25-15 mg/5 ml] HYDROcodone/APAP 5-325 [[place] 1 each PO Q6HR PRN #10 tablet 05/18/14 Unknown Rx 5/325] Ibuprofen [Motrin] 800 mg PO Q8HR PRN #20 tablet 07/31/16 Unknown Rx HYDROcodone/APAP 5-325 [[place] 1 each PO Q6HR PRN #10 tablet 11/11/16 Unknown Rx 5/325] Omeprazole 20 mg PO BID 30 Days #60 tablet. 02/01/18 Unknown Rx Ondansetron [Zofran Odt] 4 mg PO Q8H PRN #12 tab.rapdis 02/01/18 Unknown Rx Cyclobenzaprine [Flexeril] 10 mg PO QHS PRN #10 tablet 04/29/18 Unknown Rx Ibuprofen [Motrin] 600 mg PO Q8H PRN #30 tablet 04/29/18 Unknown Rx Benzonatate [Tessalon Perles] 100 mg PO Q8HR PRN #14 capsule 07/09/19 Unknown Rx Cetirizine HCl [Zyrtec 10mg tab] 10 mg PO DAILY #14 tablet 07/09/19 Unknown Rx Fluticasone [Flonase] 1 spray NS QDAY #1 bottle 07/09/19 Unknown Rx Oseltamivir [Tamiflu] 75 mg PO BID 5 Days #10 cap 07/09/19 Unknown Rx Doxycycline Hyclate [Doxycycline 100 mg PO Q12HR 10 Days #20 tab 09/13/19 Unknown Rx Hyclate TAB] methylPREDNISolone [Medrol 4MG 4 mg PO DAILY 6 Days #1 tab.ds.pk 09/13/19 Unknown Rx DOSEPAK (21 tabs)] Acetaminophen/Codeine [Tylenol 1 tab PO Q8H PRN #8 tab 02/22/20 Unknown Rx /Codeine # 3 tab] Ibuprofen [Motrin 800 MG tab] 800 mg PO Q8HR PRN #21 tablet 02/22/20 Unknown Rx Ondansetron [Zofran Odt] 4 mg PO Q8HR PRN #15 tab.rapdis 02/22/20 Unknown Rx Ondansetron [Zofran Odt] 4 mg PO Q8HR PRN #12 tab.rapdis 03/17/20 Unknown Rx Ondansetron [Zofran Odt] 4 mg PO Q6HR PRN #20 tab.rapdis 04/04/20 Unknown Rx Acetaminophen [Acetaminophen 8 650 mg PO Q8H PRN #12 tablet.er 04/15/21 Unknown Rx Hour] Dicyclomine [Bentyl] 20 mg PO Q12H PRN #12 tablet 04/15/21 Unknown Rx Ondansetron [Zofran Odt] 4 mg PO Q12H PRN #12 tab.rapdis 04/15/21 Unknown Rx Benzonatate [Tessalon Perles] 200 mg PO Q8HR #30 capsule 09/04/21 Unknown Rx Ibuprofen [Motrin 600 MG tab] 600 mg PO Q8H PRN #30 tablet 09/04/21 Unknown Rx predniSONE [Deltasone] 20 mg PO BID #10 tab 09/04/21 Unknown Rx Azithromycin [Zithromax Z-KAYDEN] 0 mg PO DAILY #6 tab 10/18/21 Unknown Rx Promethazine HCl [Promethazine TAB] 12.5 - 25 mg PO Q8H PRN 10 Days 10/18/21 Unknown Rx #20 tab Sucralfate [Carafate] 1 gm PO QID 10 Days #40 tablet 10/18/21 Unknown Rx Dicyclomine [Bentyl] 20 mg PO QID 5 Days #20 tablet 04/08/22 Unknown Rx Naproxen [Naprosyn] 500 mg PO BID 15 Days #30 tablet 04/08/22 Unknown Rx Nitrofurantoin [place]/M-Cryst 100 mg PO Q12HR 10 Days #20 capsule 04/08/22 Unknown Rx [Macrobid CAP] Dicyclomine [Bentyl] 10 mg PO QID PRN #15 capsule 05/24/22 Unknown Rx Magnesium Citrate [Citrate of 296 ml PO ONCE PRN #1 bottle 05/24/22 Unknown Rx Magnesia] Ondansetron [Zofran Odt] 4 mg PO Q8HR #12 tab.rapdis 05/24/22 Unknown Rx bisacodyL [Dulcolax suppos] 10 mg [place] ONCE #3 supp.rect 05/24/22 Unknown Rx ED Physical Exam - General Limitations: No Limitations ED Course Vital Signs 05/23/22 22:56 Temperature 98.6 F Pulse Rate 89 Respiratory 18 Rate Blood Pressure 120/73 [Right] O2 Sat by Pulse 99 Oximetry ED Medical Decision Making - Lab Data Result diagrams: 05/24/22 02:51 05/24/22 02:51 Labs 05/24/22 05/24/22 05/24/22 02:51 02:51 Unknown WBC 9.3 RBC 4.39 Hgb 11.4 Hct 34.9 MCV 79 MCH 26 L MCHC 33 RDW 15.8 H Plt Count 324 Lymph % (Auto) 39.7 H [place] % (Auto) 8.4 H Eos % (Auto) 1.0 Baso % (Auto) 1.0 Lymph # (Auto) 3.7 [place] # (Auto) 0.8 Eos # (Auto) 0.1 Baso # (Auto) 0.1 Seg Neutrophils % 49.9 Seg Neutrophils # 4.6 Sodium 141 Potassium 3.6 Chloride 104.6 Carbon Dioxide 24 Anion Gap 16 BUN 13 Creatinine 0.8 Estimated GFR > 60 BUN/Creatinine Ratio 16 Glucose 91 Calcium 8.8 Total Bilirubin 0.20 AST 11 ALT 10 Alkaline Phosphatase 80 Total Protein 6.3 Albumin 4.1 Albumin/Globulin Ratio 1.9 Lipase 27 Urine Color Colorless Urine Turbidity Clear Specific [place] (Man) 1.010 Ur Protein (Man) <30 mg dl Ur Ketones (Man) Negative Ur Nitrite (Man) Negative Urine Bilirubin (Man) Negative Leukocyte Esterase (Man) Trace Urine WBC (Auto) 1.0 Urine RBC (Auto) < 1.0 U Epithel Cells (Auto) 2.0 Urine Bacteria (Auto) 1+ Urine RBC (Manual) Negative Urine Mucus Few - Radiology Data Radiology results: report reviewed, image reviewed Abdomen single view INDICATION: Abdominal pain IMPRESSION: Mild adynamic ileus. Low stool burden. Signer Name: Jaylon Fu MD Signed: 05/24/2022 5:10 AM Workstation Name: [id number] Transcribed By: BLANE Dictated By: Jaylon Fu MD Electronically Authenticated By: Jaylon Fu MD Signed Date/Time: 05/24/22 0510 DD/ 0509 TD/TT: CT ABDOMEN AND PELVIS WITH IV CONTRAST INDICATION: Diffuse abdominal pain COMPARISON: None available. TECHNIQUE: Axial CT images were obtained through the abdomen and pelvis after 100 mL Omnipaque [address] scans at this location are performed using CT dose reduction for ALARA by means of automated exposure control. FINDINGS -- ABDOMEN: Lung Bases: No acute abnormality. Liver: Normal. Gallbladder: Normal. Bile Ducts: Normal. Pancreas: Normal. Spleen: Normal. Adrenals: Normal. Right Kidney and Proximal Ureter: Normal. Left Kidney and Proximal Ureter: Normal. Stomach and Bowel: Normal. Lymph Nodes: No significant adenopathy. Aorta: No significant abnormality. IVC: Normal. Additional Findings: None. FINDINGS -- PELVIS: Urinary Bladder and Distal Ureters: Normal. Reproductive Organs: Small cysts within both ovaries. There is a peripherally enhancing cyst within the left ovary measuring about 12 mm in diameter.. Tiny endometrial fluid is probably physiologic. Appendix: Normal. Bowel: No acute abnormality. Free Fluid: Tiny free fluid likely physiologic. Lymph Nodes: No significant adenopathy. Additional Findings: None. Skeletal System: No acute abnormality. IMPRESSION: 1. Bowel obstruction. 2. Few colonic diverticula without diverticulitis. 3. 1.2 cm peripherally enhancing cyst within the left ovary could represent a small hemorrhagic cyst versus corpus luteal cyst. Signer Name: Jaylon Fu MD Signed: 05/24/2022 6:11 AM Workstation Name: [id number] Transcribed By: Dictated By: Jaylon Fu MD Electronically Authenticated By: Jaylon Fu MD Signed Date/Time: 05/24/22 06 DD/ 0609 TD/TT: Phone con with [place] Radiologist advises error will change read to no No Bowel Obstruction. per radiology Dr. Jaylon HERNANDEZ. 05/24/2022 0638 - Medical Decision Making KUB and CT noted as above. Bowel sounds are normal. Patient is tolerating p.o. challenge without nausea vomiting at this time. Symptoms are improved with medications given in ED, patient tolerating p.o. intake without nausea or vomiting KUB noted above labs noted above plan treat for constipation. DC to home with prescriptions, follow-up with primary care doctor in 2 to 3 days. Return to emergency department should symptoms worsen. Critical care attestation.: If time is entered above; I have spent that time in minutes in the direct care of this critically ill patient, excluding procedure time. ED Disposition Clinical Impression: Abdominal pain Qualifiers: Abdominal location: generalized Qualified Code(s): R10.84 - Generalized abdominal pain Disposition: 01 HOME / SELF CARE / HOMELESS Is pt being admited?: No Does the pt Need Aspirin: No Condition: Stable Instructions: Constipation, Adult, Hnry-ds-Horb, Probiotics Additional Instructions: Take medication as prescribed, hydrate as directed. Return to emergency department should symptoms worsen or unable to tolerate intake by mouth. Prescriptions: Dicyclomine [Bentyl] 10 mg PO QID PRN #15 capsule PRN Reason: abdominal spasm Magnesium Citrate [Citrate of Magnesia] 296 ml PO ONCE PRN #1 bottle PRN Reason: Constipation bisacodyL [Dulcolax suppos] 10 mg [place] ONCE #3 supp.rect Ondansetron [Zofran Odt] 4 mg PO Q8HR #12 tab.rapdis Referrals: LASHANDA NEAL MD [Primary Care Provider] - 3-5 Days Forms: Work/School Release Form(ED) Time of Disposition: 06:47
--- NOTE | 2022-05-24 05:14 | XRay Report ---
Abdomen single view INDICATION: Abdominal pain IMPRESSION: Mild adynamic ileus. Low stool burden. Signer Name: Jaylon Fu MD Signed: 05/24/2022 5:10 AM Workstation Name: [email or web address]
[2022-05-24] MEDS ORDERED: SODIUM CHLORIDE 0.9% 1000 ML 1,000 ML IV ONE (05:27)
--- NOTE | 2022-05-24 06:15 | Cat Scan Report ---
CT ABDOMEN AND PELVIS WITH IV CONTRAST INDICATION: Diffuse abdominal pain COMPARISON: None available. TECHNIQUE: Axial CT images were obtained through the abdomen and pelvis after 100 mL Omnipaque [address] scans at this location are performed using CT dose reduction for ALARA by means of automated e xposure control. FINDINGS -- ABDOMEN: Lung Bases: No acute abnormality. Liver: Normal. Gallbladder: Normal. Bile Ducts: Normal. Pancreas: Normal. Spleen: Normal. Adrenals: Normal. Right Kidney and Proximal Ureter: Normal. Left Kidney and Proximal Ureter: Normal. Stomach and Bowel: Normal. Lymph Nodes: No significant adenopathy. Aorta: No significant abnormality. IVC: Normal. Additional Findings: None. FINDINGS -- PELVIS: Urinary Bladder and Distal Ureters: Normal. Reproductive Organs: Small cysts within both ovaries. There is a peripherally enhancing cyst within t he left ovary measuring about 12 mm in diameter.. Tiny endometrial fluid is probably physiologic. Appendix: Normal. Bowel: No acute abnormality. Free Fluid: Tiny free fluid likely physiologic. Lymph Nodes: No significant adenopathy. Additional Findings: None. Skeletal System: No acute abnormality. IMPRESSION: 1. Bowel obstruction. 2. Few colonic diverticula without diverticulitis. 3. 1.2 cm peripherally enhancing cyst within the left ovary could represent a small hemorrhagic cyst versus corpus luteal cyst. Signer Name: Jaylon Fu MD Signed: 05/24/2022 6:11 AM Workstation Name: [email or web address]
== END 2022-05-24 08:09 | disposition home or self-care (01) ==
LOC: ED 22:33
DX: R10.9 Unspecified abdominal pain (principal); Z88.0 Allergy status to penicillin
CPT/HCPCS: 36415; 74018; 74177; 80053; 81001; 83690; 85025; 96360; 99284; J7030; Q9967; J3490; Q0162